=== PATIENT | male | born 1945 | race American Indian/Alaskan Native ===

== ENCOUNTER 2021-02-21 13:15 | Inpatient (IN) | payer MEDICARE ==
[2021-02-21] MEDS ORDERED: ALBUTEROL 2.5 MG/3 ML NEBU IH PRN (15:03)
[2021-02-21] MEDS ORDERED: POLYETHYLENE GLYCOL 3350 17 GM POWDER PO PRN (15:03)
[2021-02-21] MEDS ORDERED: ONDANSETRON 4 MG ODT TAB PO PRN (15:03)
[2021-02-21] MEDS ORDERED: hydrALAZINE 20 MG/1 ML INJ IV PRN (15:03)
[2021-02-21] MEDS ORDERED: QUEtiapine 25 MG TAB PO PRN (15:08)
[2021-02-21] MEDS: levETIRAcetam 500 MG/5 ML ORAL LIQD PO SCH (21:55)
[2021-02-21] MEDS: carvediloL 12.5 MG TAB PO SCH (21:57)
[2021-02-22 05:38] LABS: Basophils % (Auto) 0.2 % (0.0-1.8); Eosinophils % (Auto) 0.1 % (0.0-4.3); Lymphocytes # (Auto) 1.2 K/mm3 (1.2-5.4); Lymphocytes % (Auto) 10.8 % (13.4-35.0); Mean Corpuscular HGB Conc 37 % (32-34); Mean Corpuscular Volume 83 fl (84-94); Monocytes % (Auto) 9.2 % (0.0-7.3); Platelet Count 157 K/mm3 (140-440); Red Cell Distribution Width 14.4 % (13.2-15.2)
[2021-02-22 05:45] LABS: Hematocrit 35.5 % (35.5-45.6); Hemoglobin 13.2 gm/dl (11.8-15.2)
[2021-02-22 06:28] LABS: Alanine Aminotransferase 14 units/L (7-56); Albumin 3.7 g/dL (3.9-5); Blood Urea Nitrogen 12 mg/dL (9-20); Calcium 9.3 mg/dL (8.4-10.2); Hemolysis Index 8
[2021-02-22 06:36] LABS: BUN/Creatinine Ratio 24
[2021-02-22] MEDS: levETIRAcetam 500 MG/5 ML ORAL LIQD PO SCH ×2 (08:04→22:53)
[2021-02-22] MEDS: POTASSIUM CHLORIDE ER 20 MEQ TAB PO SCH (08:05)
[2021-02-22] MEDS: ENOXAPARIN 40 MG/0.4 ML INJ SUB-Q SCH (08:05)
[2021-02-22] MEDS: carvediloL 12.5 MG TAB PO SCH ×2 (08:05→22:54)
[2021-02-22] MEDS: amLODIPine 10 MG TAB PO SCH (08:05)
--- NOTE | 2021-02-22 08:14 | History and Physical Report ---
History of Present Illness Date: 02/22/21 Date of admission: 02/21/21 19:22 Chief Complaint: CVA History of present illness: 76-year-old male who was in [place] when he was noted to have altered mental status and headache. He was taken to nearest ED and had no focal neurologic deficits on presentation. 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 Patient was possibly not compliant with medications per outside hospital reports. Patient later was noted to have epileptiform discharges on EEG and was started on Keppra. Blood pressure was elevated and remains in the 160s to 170s. Home medications were restarted as well as the addition of carvedilol. Patient also experienced agitation and was started on a very low-dose of Seroquel in order to reduce his risk of self injury. Patient has poor safety awareness, somewhat decreased command following at times, and visual impairment on the left. He has been cleared for Lovenox for DVT prophylaxis however has not been restarted on aspirin which he previously took due to the TIA as of yet. Patient also remains on potassium replacement. After the patient was medically stabilized they were transferred for further rehabilitation. All available medical records have been reviewed. Plan of care was discussed with patient and family (, son, daughter are here with the patient this morning). Patient does have some perseveration noted, left homonymous hemianopsia, and a slight left facial droop. 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 Left upper and lower extremities are slightly weaker but still functional. On examination with OT this morning patient had significant uncleared food still in his mouth from breakfast. Approximately 35 minutes was invested in reviewing a large packet of medical records from [facility] yesterday prior to the patient's admission. Summary of said review is as stated above. 75 minutes was invested in patient care this morning including time for examination with the patient, monitoring the patient during PT, OT and ESTHETICIAN FACIALIST evalu ations, and discussing the patient's current condition and prognosis as well as discharge planning with the patient and the family. Past History Past Medical History: hypertension, other (Prior TIA) Past Surgical History: hernia repair Social history: , lives with family, full code. denies: smoking, alcohol abuse (Occasional use) Family history: cancer, hypertension Medications and Allergies Allergies Allergy/AdvReac Type Severity Reaction Status Date / Time No Known Allergies Allergy Unverified 02/21/21 13:30 Active Meds: Active Medications Acetaminophen (Acetaminophen 325 Mg Tab) 650 mg PO Q6H PRN PRN Reason: Non Cardiac Pain or Temp>100.5 Albuterol (Albuterol 2.5 Mg/3 Ml Nebu) 2.5 mg IH Q4HRT PRN PRN Reason: Shortness Of Breath Amlodipine Besylate (Amlodipine 10 Mg Tab) 10 mg PO QDAY [facility] Last Admin: 02/22/21 08:05 Dose: 10 mg Documented by: Atorvastatin Calcium (Atorvastatin 40 Mg Tab) 40 mg PO QHS [facility] Last Admin: 02/21/21 21:57 Dose: 40 mg Documented by: Bisacodyl (Bisacodyl 10 Mg Rect Supp) 10 mg HI QDAY PRN PRN Reason: Constipation Carvedilol (Carvedilol 12.5 Mg Tab) 12.5 mg PO BID [facility] Last Admin: 02/22/21 08:05 Dose: 12.5 mg Documented by: Doxazosin Mesylate (Doxazosin 4 Mg Tab) 4 mg PO QDAY [facility] Enoxaparin Sodium (Enoxaparin 40 Mg/0.4 Ml Inj) 40 mg SUB-Q QDAY [facility] Last Admin: 02/22/21 08:05 Dose: 40 mg Documented by: Hydralazine HCl (Hydralazine 20 Mg/1 Ml Inj) 10 mg IV Q4HR PRN PRN Reason: Hypertension Levetiracetam (Levetiracetam 500 Mg/5 Ml Oral Liqd) 750 mg PO BID [facility] Last Admin: 02/22/21 08:04 Dose: 750 mg Documented by: Ondansetron HCl (Ondansetron 4 Mg Odt Tab) 4 mg PO Q8H PRN PRN Reason: Nausea And Vomiting Polyethylene Glycol (Polyethylene Glycol 3350 17 Gm Powder) 17 gm PO QDAY PRN PRN Reason: Constipation Potassium Chloride (Potassium Chloride Er 20 Meq Tab) 20 meq PO QDAY [facility] Last Admin: 02/22/21 08:05 Dose: 20 meq Documented by: Quetiapine Fumarate (Quetiapine 25 Mg Tab) 12.5 mg PO QHS PRN PRN Reason: Agitation Review of Systems All systems: negative (ROS negative for 10 systems except as noted below with pertinent positives and negatives.) Constitutional: fatigue, daytime sleepiness Eyes: left: other (Left homonymous hemianopsia) Ears, nose, mouth and throat: voice changes, no decreased hearing Cardiovascular: no chest pain, no palpitations, no edema Respiratory: no cough, no shortness of breath Gastrointestinal: no abdominal pain, no nausea, no vomiting, no diarrhea, no constipation Musculoskeletal: gait dysfunction, no neck pain, no low back pain Integumentary: no rash, no pruritis, no sores Neurological: weakness, seizures, lack of coordination, change in mentation, balance difficulties, loss of vision Psychiatric: memory loss, confusion Exam - Exam Narrative exam: MUSCULOSKELETAL SPECIALTY EXAM CONSTITUTIONAL: Well developed, well nourished, appropriately groomed. RIGHT hand dominant. LYMPHATIC: No appreciable abnormalities palpable in neck RESPIRATORY: Clear to auscultation bilaterally, no increased work of breathing CARDIOVASCULAR: Regular Rate/ Rhythm, no swelling, edema or tenderness in BUE or BLE. Pulses palpable in all extremities. All extremities warm. GI: + bowel sounds, soft, NTTP, nondistended. INTEGUMENTARY: Normal, no lesion, rash, masses or bruising noted in extremities. MUSCULOSKELETAL: BUE and BLE normal without defect, crepitus, subluxation, effusion, arthritic changes or TTP. R 5 /5 L 4 /5 ROM normal Tone normal NEURO: CN II : Left homonymous hemianopsia CN II, III : PERRL CN III, IV, : EOMI CN V : Facial sensation intact CN VII : Slight left facial droop CN VIII : Hearing intact to finger rustle CN IX, X : Palate/uvula elevate midline, phonation softened but not hoarse CN XI : Intact shoulder shrug and decreased head rotation CN XII : Tongue protrudes midline Sensation intact in all extremities with extinction on the left. Reflexes 2+ bilaterally at biceps, brachioradialis and patella. No clonus at ankles. Coordination slightly impaired in BUE. No tremor noted in 4 extremities. Naming and repetition intact. Follows 1 step commands partially. Aphasia not appreciated Dysarthria possibly slightly present but difficult to tell due to patient's fatigue and softened voice Dysphagia patient with food in mouth, possibly oral motor issues Neglect not appreciated, inattention seems present Poor safety awareness POSTURE and GAIT: Sitting posture good. Balance and gait observed with therapy, gait fairly reasonable with crouched knees and occasional loss of balance utilizing rolling walker. PSYCH: Drowsy, oriented x 2, affect appears blunted. Insight appears impaired - Constitutional Vitals: Vital Signs - 12hr 02/21/21 02/21/21 02/22/21 21:57 23:00 04:00 Temperature 98.1 F 98.2 F Pulse Rate 85 83 59 L Respiratory 18 18 Rate Blood Pressure 175/88 Blood Pressure 149/94 172/91 [Right] O2 Sat by Pulse 96 98 Oximetry 02/22/21 07:23 Temperature 99.3 F Pulse Rate 69 Respiratory 18 Rate Blood Pressure Blood Pressure 163/92 [Right] O2 Sat by Pulse 96 Oximetry - Labs CBC & Chem 7: 02/22/21 04:50 02/22/21 04:50 Labs: Laboratory Results - last 72 hr 02/22/21 02/22/21 04:50 04:50 WBC 11.0 RBC 4.30 Hgb 13.2 Hct 35.5 MCV 83 L MCH 31 MCHC 37 H RDW 14.4 Plt Count 157 Lymph % (Auto) 10.8 L Pike % (Auto) 9.2 H Eos % (Auto) 0.1 Baso % (Auto) 0.2 Lymph # (Auto) 1.2 Pike # (Auto) 1.0 H Eos # (Auto) 0.0 Baso # (Auto) 0.0 Seg Neutrophils % 79.7 H Seg Neutrophils # 8.8 H Sodium 131 L Potassium 3.9 Chloride 92.9 L Carbon Dioxide 23 Anion Gap 19 BUN 12 Creatinine 0.5 L Estimated GFR > 60 BUN/Creatinine Ratio 24 Glucose 134 H Calcium 9.3 Total Bilirubin 1.20 AST 18 ALT 14 Alkaline Phosphatase 50 Total Protein 7.1 Albumin 3.7 L Albumin/Globulin Ratio 1.1 Assessment and Plan Assessment and plan: Patient was assessed and evaluated for Acute Inpatient Rehab Unit. Due to the patients above-mentioned medical complexity, along with decreased functional mobility and self care, this patient continues to require and be appropriate for a comprehensive, multidisciplinary [id number] rehabilitation program. These needs cannot be met in an outpatient or other less intensive setting. The patient would continue to benefit from skilled t herapy intervention for at least 3 hours per day, five days a week, with techniques specific to the needs of the patient to improve function, activities of daily living, and reintegration into the community. The patient continues to require: -- OT to improve ROM, self-care, and learn use of adaptive equipment -- PT to improve strength and balance, functional transfers, and ambulation with energy conservation techniques to improve functional mobility -- ESTHETICIAN FACIALIST to address cognitive deficits and swallowing ability -- 24 hour RN to ensure and prevent skin breakdown, promote progressive independence while ensuring safety, ensure education regarding medications, and incorporation of the rehabilitation at the bedside -- 24 hour Desilverizer to coordinate this interdisciplinary program, and to manage/prevent complications as a result of the patients medical comorbidities. -Plan of care by day 4 -Weekly team conferences With such a program, there is a reasonable certainty that the goals individua lized for this patient can be achieved within the specified length of stay. Intracerebral hemorrhage: Continue Secondary Stroke Prevention (Antithrombotic on hold, Statin (Goal LDL-C <70), BP control (Goal <140/90), GLU control (Goal A1c <7), and lifestyle modification). Monitor for recurrent stroke or post- stroke recrudescence. Continue neuromotor therapy as above. Family training when available. Monitor for post stroke depression, cognitive deficits, seizure, dysphagia, aphasia, shoulder hand syndrome, sensory deficits, spasticity, bowel/bladder deficits, sleep disturbance, vision deficits and DVT. Prognosis for recovery and Secondary Stroke Prevention discussed. Follow up with Neurology. No driving until cleared by Neurologist. Seizure: Maintain seizure precautions, continue Keppra for prophylaxis. Patient will need follow-up with neurologist for consideration of removal of Keppra in several months. Hypertension: Continue medication. Monitor blood pressure. Adjust medications as needed for normotension. Hold for hypotension. Goal SBP <140. May need to discontinue carvedilol and start another agent due to poorly controlled hypertension with the patient's heart rate trending towards the lower side. Will monitor over the next day or 2 and make adjustments accordingly. Left homonymous hemianopsia: Continue therapy to improve the patient's ability to recognize and scan on his left side. Patient seems to have poor awareness of visual deficits and has not been able to appropriately scan for visual input yet. Poor safety awareness: Continue to monitor the patient closely for safety. Bed alarm and wheelchair alarm/seatbelt in use. Family members have been staying overnight since he was admitted yesterday. Will need to continue working with the patient to improve his safety awareness. Low-dose Seroquel place for intermittent agitation which the patient was having at [facility] prior to discharge. Cognitive dysfunction: Continue working with ESTHETICIAN FACIALIST to improve patient's cognition and memory . Will need to monitor sleep-wake cycles and may need to start trazodone if the patient is not sleeping well at night. Have discussed with the patient's family that decreased stimulation may be a good thing during the day and not to over stimulate him. ADL dysfunction: OT will work on improving ability to perform ADLs (including assistive devices) to increase independence and decrease caregiver burden and improve functional transfers and mobility training. Difficulty walking: PT will work on gait training and proper use of assistive devices and advance as appropriate to use of stairs and outside ambulation on uneven surfaces. Unsteadiness on feet: PT will work on improving static and dynamic sitting and standing balance as well as proper use of assistive devices to decrease risk of falls. Abnormality of gait: PT will work to improve safety and efficiency of gait through neuromotor training and gait training along with instruction on proper use of assistive devices. Muscle weakness: PT & OT will work on strengthening exercises to improve functional strength including mixture of closed and open kinetic chain exercises. Debility: PT & OT will work on improving overall functional status to improve participation with ADLs, mobility and social involvement. Fatigue: PT & OT will work on improving endurance through aerobic exercises and therapeutic activity while monitoring patients tolerance for activity and vital signs as needed. DVT ppx: Lovenox Pain: Continue physical modalities in therapy and pain medications as needed to achieve functional pain control. Sleep: Monitor and address as needed. Bowel: Monitor and address as needed. Appetite: Monitor and address as needed. Discharge planning: Pending therapy progress and care plan meeting. Will continue discussion with therapy team, SW, patient and family. Restrictions/ Precautions: Falls, seizure, cognition WB status: FWB Functional Hx: ADLs: Independent Cognition: Independent Mobility: No AD Barriers to Discharge: Decreased mobility and ability to perform self care, b alance deficits, weakness Estimated Length of Stay: 1418 days Discharge Destination: Home with family POST ADMISSION PHYSICIAN EVALUATION I have examined the patient and find that functional status, medical condition and appropriateness for IRF admission are essentially unchanged from those descr ibed in the preadmission screening. Will monitor for worsening CVA, hemorrhagic extension, shoulder-hand syndrome, dysphagia, seizure, skin breakdown, DVT/PE, bowel and bladder complications and complications due to hypertension and electrolyte abnormalities. Will attempt to avoid occurrence of these issues or treat them if they present themselves.
[2021-02-22] MEDS: DOXAZOSIN 4 MG TAB PO SCH (13:17)
[2021-02-23] MEDS: carvediloL 12.5 MG TAB PO SCH (11:23)
[2021-02-23] MEDS: POTASSIUM CHLORIDE ER 20 MEQ TAB PO SCH (11:23)
[2021-02-23] MEDS: amLODIPine 10 MG TAB PO SCH (11:23)
[2021-02-23] MEDS: DOXAZOSIN 4 MG TAB PO SCH (11:24)
[2021-02-23] MEDS: ENOXAPARIN 40 MG/0.4 ML INJ SUB-Q SCH (11:30)
--- NOTE | 2021-02-23 12:37 | Progress Note ---
Subjective Date of service: 02/23/21 Principal diagnosis: CVA Interval history: 76-year-old male who was in [place] when he was noted to have altered mental status and headache. He was taken to nearest ED and had no focal neurologic deficits on presentation. 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 Patient was possibly not compliant with medications per outside hospital reports. Patient later was noted to have epileptiform discharges on EEG and was started on Keppra. Blood pressure was elevated and remains in the 160s to 170s. Home medications were restarted as well as the addition of carvedilol. Patient also experienced agitation and was started on a very low-dose of Seroquel in order to reduce his risk of self injury. Patient has poor safety awareness, somewhat decreased command following at times, and visual impairment on the left. He has been cleared for Lovenox for DVT prophylaxis however has not been restarted on aspirin which he previously took due to the TIA as of yet. Patient also remains on potassium replacement. After the patient was medically stabilized they were transferred for further rehabilitation. All available medical records have been reviewed. Plan of care was discussed with patient and family (, son, daughter are here with the patient this morning). Interval History: Patient is participating in therapy and making slow progress requiring mod to max assist with OT, much cueing with [employer], and mod assist with PT. Taking rest breaks as needed. +BM. Denies pain, palpitations, dyspnea, cough, N/V, or joint pain. Intracerebral hemorrhage: Continue secondary stroke prevention. Monitor for any signs of worsening hemorrhage intracranially. Monitor for any signs of neurologic decline, shoulder-hand syndrome, aspiration, bowel bladder deficits, sleep dysfunction. Patient is having difficulty with concentration and cognition, will need to continue to reinforce concept with him from all disc iplines including PT, OT, speech and nursing. Seizure: Continue seizure precautions. Continue Keppra and patient will need to follow-up with neurologist as an outpatient for consideration of discontinuation of Keppra. Hypertension: Blood pressure remains elevated, heart rate runs 60s to 70s. Will look to start lisinopril in addition to current medications and monitor blood pressure for improvement. DC carvedilol. Left homonymous hemianopsia: Continue therapy and monitor for improvement. P atient will need to learn to scan as much as possible to the weak side in order to avoid obstacles and to pay attention to his environment. Will obtain this during work with therapy sessions performing searches in his environment as well as up and down the hallway. Poor safety awareness: Continue to monitor the patient closely. Bed and chair alarm at use at all times. Have discussed with nursing to try to redirect patient as often as needed. Family has been spending time with the patient and this seems to calm him down as well. Cognitive dysfunction: Hopefully this will improve with time as the patient has an ICH. We will continue working with speech therapy to improve and have all di sciplines reinforce reorientation and monitor for clearing. All records, vitals, labs and medications were reviewed. No other issues per patient, nursing or therapy. Patient remains a high risk and/or due to diagnosis of intracerebral hemorrhage with possibility of repeat hemorrhage and worsening of neurologic function. Patient has been cleared for Lovenox by hospital prior to transfer to us however her aspirin has not been restarted. Patient also has risk of serious bodily harm and/or due to cognitive dysfunction and poor safety awareness leading him to possibility of falls even with use of bed and chair alarms and frequent monitoring by staff. Patient's condition discussed with the daughter when she came onto the floor. Objective - Exam Narrative Exam: MUSCULOSKELETAL SPECIALTY EXAM CONSTITUTIONAL: Well developed, well nourished, appropriately groomed. RIGHT hand dominant. RESPIRATORY: Clear to auscultation bilaterally, no increased work of breathing CARDIOVASCULAR: Regular Rate/ Rhythm, no swelling, edema or tenderness in BUE or BLE. All extremities warm. GI: + bowel sounds, soft, NTTP, nondistended. INTEGUMENTARY: Normal, no lesion, rash, masses or bruising noted in extremities. MUSCULOSKELETAL: BUE and BLE normal without defect, crepitus, subluxation, effusion, arthritic c hanges or TTP. R 5 /5 L 4 /5 ROM normal Tone normal NEURO: CN II : Left homonymous hemianopsia CN VII : Slight left facial droop CN IX, X : Palate/uvula elevate midline, phonation softened but not hoarse CN XI : Intact shoulder shrug and decreased head rotation Sensation intact in all extremities with extinction on the left. No tremor noted in 4 extremities. Follows 1 step commands partially. Aphasia not appreciated Dysarthria possibly slightly present but difficult to tell due to patient's fatigue and softened voice Dysphagia patient with food in mouth, possibly oral motor Neglect not appreciated, inattention seems present Poor safety awareness with cognitive dysfunction POSTURE and GAIT: Sitting posture good. Balance and gait observed with therapy, gait fairly reasonable with crouched knees and occasional loss of balance utilizing rolling walker. PSYCH: More awake today, disoriented, affect appears blunted. Insight impaired - Constitutional Vitals: Vital Signs - 12hr 02/23/21 02/23/21 04:29 07:48 Temperature 98.5 F 97.3 F L Pulse Rate 69 73 Respiratory 18 16 Rate Blood Pressure 150/77 163/87 O2 Sat by Pulse 100 94 Oximetry - Allied health notes Allied health notes reviewed: nursing, PT, ST, OT FIMS assessment as documented by PT/OT/ST: Grooming Patient cleans teeth/dentures: Yes Patient bernstein/brushes hair: Yes Patient washes, rinses and Yes dries face: Patient washes, rinses and Yes dries hands: Patient shaves: No Patient performs (no make-up/ 4/4 (100%) shaving): Grooming FIM Score 3. Moderate Assistance (Patient = 50% or more) Toileting Toileting FIM Score 2. Maximal Assistance (Patient = 25% or more) Social interaction/Memory/Problem solving Social Interaction FIM Score 5. Supervision (Needs supv. <10%. Needs encouragement to participate.) Memory FIM Score 3. Moderate Assistance (Recognizes and remembers 50-74%.) Problem Solving FIM Score 2. Maximal Assistance (Solves problems 25-49% or needs restraint.) Transfers Mode of Locomotion: Wheelchair Bed/Chair/Wheelchair Transfers 4. Minimal Assistance (Patient = 75% or more. FIM Score Needs touching.) Toilet Transfers FIM Score 4. Minimal Assistance (Patient = 75% or more. Needs touching.) Patient transferred to: Shower Shower Transfers FIM Score 4. Minimal Assistance (Patient = 75% or more. Needs touching.) Locomotion- walk/wheelchair Ambulation Distance 340 Eating Eating FIM Score 4. Minimal Assistance (Patient = 75% or more) Dressing-Upper body Patient retrieves clothing No items: Patient applies/removes UE No: N/A prosthesis or orthosis: Upper Body Dressing FIM Score 2. Maximal Assistance (Patient = 25% or more) Dressing-lower body Patient retrieves clothing No items: Patient applies/removes LE No: N/A prosthesis or orthosis: Lower Body Dressing FIM Score 2. Maximal Assistance (Patient = 25% or more) - Labs CBC & Chem 7: 02/22/21 04:50 02/22/21 04:50 Labs: Laboratory Results - last 72 hr 02/22/21 02/22/21 04:50 04:50 WBC 11.0 RBC 4.30 Hgb 13.2 Hct 35.5 MCV 83 L MCH 31 MCHC 37 H RDW 14.4 Plt Count 157 Lymph % (Auto) 10.8 L Fountain % (Auto) 9.2 H Eos % (Auto) 0.1 Baso % (Auto) 0.2 Lymph # (Auto) 1.2 Fountain # (Auto) 1.0 H Eos # (Auto) 0.0 Baso # (Auto) 0.0 Seg Neutrophils % 79.7 H Seg Neutrophils # 8.8 H Sodium 131 L Potassium 3.9 Chloride 92.9 L Carbon Dioxide 23 Anion Gap 19 BUN 12 Creatinine 0.5 L Estimated GFR > 60 BUN/Creatinine Ratio 24 Glucose 134 H Calcium 9.3 Total Bilirubin 1.20 AST 18 ALT 14 Alkaline Phosphatase 50 Total Protein 7.1 Albumin 3.7 L Albumin/Globulin Ratio 1.1 Assessment and Plan Intracerebral hemorrhage: Continue Secondary Stroke Prevention (Antithrombotic on hold, Statin (Goal LDL-C <70), BP control (Goal <140/90), GLU control (Goal A1c <7), and lifestyle modification). Monitor for recurrent stroke or post- stroke recrudescence. Continue neuromotor therapy as above. Family training when available. Monitor for post stroke depression, cognitive deficits, seizure, dysphagia, aphasia, shoulder hand syndrome, sensory deficits, spasticity, bowel/bladder deficits, sleep disturbance, vision deficits and DVT. Prognosis for recovery and Secondary Stroke Prevention discussed. Follow up with Neurology. No driving until cleared by Neurologist. Seizure: Maintain seizure precautions, continue Keppra for prophylaxis. Patient will need follow-up with neurologist for consideration of removal of Keppra in several months. Hypertension: Continue medication. Monitor blood pressure. Adjust medications as needed for normotension. Hold for hypotension. Goal SBP <140. Carvedilol discontinued and starting lisinopril. Monitor and adjust medications as needed for better pressure control. Left homonymous hemianopsia: Continue therapy to improve the patient's ability to recognize and scan on his left side. Patient seems to have poor awareness of visual deficits and has not been able to appropriately scan for visual input yet. Poor safety awareness: Continue to monitor the patient closely for safety. Bed alarm and wheelchair alarm/seatbelt in use. Family members have been staying overnight since he was admitted yesterday. Will need to continue working with the patient to improve his safety awareness. Low-dose Seroquel place for intermittent agitation which the patient was having at [facility] prior to discharge. Cognitive dysfunction: Continue working with [employer] to improve patient's cognition and memory . Will need to monitor sleep-wake cycles and may need to start trazodone if the patient is not sleeping well at night. Have discussed with the patient's family that decreased stimulation may be a good thing during the day and not to over stimulate him. ADL dysfunction: OT will work on improving ability to perform ADLs (including assistive devices) to increase independence and decrease caregiver burden and improve functional transfers and mobility training. Difficulty walking: PT will work on gait training and proper use of assistive devices and advance as appropriate to use of stairs and outside ambulation on uneven surfaces. Unsteadiness on feet: PT will work on improving static and dynamic sitting and standing balance as well as proper use of assistive devices to decrease risk of falls. Abnormality of gait: PT will work to improve safety and efficiency of gait through neuromotor training and gait training along with instruction on proper use of assistive devices. Muscle weakness: PT & OT will work on strengthening exercises to improve functional strength including mixture of closed and open kinetic chain exercises. Debility: PT & OT will work on improving overall functional status to improve participation with ADLs, mobility and social involvement. Fatigue: PT & OT will work on improving endurance through aerobic exercises and therapeutic activity while monitoring patients tolerance for activity and vital signs as needed. DVT ppx: Lovenox Pain: Continue physical modalities in therapy and pain medications as needed to achieve functional pain control. Sleep: Monitor and address as needed. Bowel: Monitor and address as needed. Appetite: Monitor and address as needed. Discharge planning: Pending therapy progress and care plan meeting. Will continue discussion with therapy team, SW, patient and family. Restrictions/ Precautions: Falls, seizure, cognition WB status: FWB Functional Hx: ADLs: Independent Cognition: Independent Mobility: No AD Barriers to Discharge: Decreased mobility and ability to perform self care, balance deficits, weakness Estimated Length of Stay: 1418 days Discharge Destination: Home with family
[2021-02-23] MEDS: levETIRAcetam 500 MG/5 ML ORAL LIQD PO SCH ×2 (13:23→21:18)
[2021-02-23] MEDS: LISINOPRIL 10 MG TAB PO SCH (18:52)
[2021-02-24 07:56] LABS: Blood Urea Nitrogen 16 mg/dL (9-20); Calcium 9.4 mg/dL (8.4-10.2); Hemolysis Index 2
--- NOTE | 2021-02-24 07:58 | Progress Note ---
Subjective Date of service: 02/24/21 Principal diagnosis: CVA Interval history: 76-year-old male who was in [place] when he was noted to have altered mental status and headache. He was taken to nearest ED and had no focal neurologic deficits on presentation. 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 Patient was possibly not compliant with medications per outside hospital reports. Patient later was noted to have epileptiform discharges on EEG and was started on Keppra. Blood pressure was elevated and remains in the 160s to 170s. Home medications were restarted as well as the addition of carvedilol. Patient also experienced agitation and was started on a very low-dose of Seroquel in order to reduce his risk of self injury. Patient has poor safety awareness, somewhat decreased command following at times, and visual impairment on the left. He has been cleared for Lovenox for DVT prophylaxis however has not been restarted on aspirin which he previously took due to the TIA as of yet. Patient also remains on potassium replacement. After the patient was medically stabilized they were transferred for further rehabilitation. All available medical records have been reviewed. Plan of care was discussed with patient and family (, son, daughter are here with the patient this morning). Interval History: Patient is participating in therapy and making slow progress requiring mod to max assist with OT, much cueing with [employer]I PROGRAMMER, and mod assist with PT. Taking rest breaks as needed. -BM. Denies pain, palpitations, dyspnea, cough, N/V, or joint pain. Intracerebral hemorrhage: Continue secondary stroke prevention. Monitor for any signs of worsening hemorrhage intracranially. Monitor for any signs of neurologic decline, shoulder-hand syndrome, aspiration, bowel bladder deficits, sleep dysfunction. Patient is having difficulty with concentration and cognition, will need to continue to reinforce concept with him from all disc iplines including PT, OT, speech and nursing. Seizure: Continue seizure precautions. Continue Keppra and patient will need to follow-up with neurologist as an outpatient for consideration of discontinuation of Keppra. No seizures so far this admission Hypertension: Blood pressure slightly improved on current medications. Continue to monitor blood pressure over the next several days and adjust medications as needed. Left homonymous hemianopsia: Continue therapy and monitor for improvement. Patient will need to learn to scan as much as possible to the weak side in order to avoid obstacles and to pay attention to his environment. Will obtain this during work with therapy sessions performing searches in his environment as well as up and down the hallway. Poor safety awareness: Continue to monitor the patient closely. Bed and chair alarm at use at all times. Have discussed with nursing to try to redirect patient as often as needed. Family has been spending time with the patient and this seems to calm him down as well. Apparently patient tried to get up most of the night despite alarms being activated and nursing staff are requesting a sitter for patient safety. Cognitive dysfunction: Hopefully this will improve with time as the patient has an ICH. We will continue working with speech therapy to improve and have all disciplines reinforce reorientation and monitor for clearing. All records, vitals, labs and medications were reviewed. No other issues per patient, nursing or therapy. Patient remains a high risk and/or due to diagnosis of intracerebral hemorrhage with possibility of repeat hemorrhage and worsening of neurologic function. Patient has been cleared for Lovenox by hospital prior to transfer to us however aspirin has not been restarted. Aysha ent also has risk of serious bodily harm and/or due to cognitive dysfunction and poor safety awareness leading him to possibility of falls even with use of bed and chair alarms and frequent monitoring by staff. Objective - Exam Narrative Exam: MUSCULOSKELETAL SPECIALTY EXAM CONSTITUTIONAL: Well developed, well nourished, appropriately groomed. RIGHT hand dominant. RESPIRATORY: Clear to auscultation bilaterally, no increased work of breathing CARDIOVASCULAR: Regular Rate/ Rhythm, no swelling, edema or tenderness in BUE or BLE. All extremities warm. GI: + bowel sounds, soft, NTTP, nondistended. INTEGUMENTARY: Normal, no lesion, rash, masses or bruising noted in extremities. MUSCULOSKELETAL: BUE and BLE normal without defect, crepitus, subluxation, effusion, arthritic changes or TTP. R 5 /5 L 4 /5 ROM normal Tone normal NEURO: CN II : Left homonymous hemianopsia CN VII : Slight left facial droop CN IX, X : Palate/uvula elevate midline, phonation softened but not hoarse CN XI : Intact shoulder shrug and decreased head rotation Sensation intact in all extremities with extinction on the left. No tremor noted in 4 extremities. Follows 1 step commands partially. Aphasia not appreciated Dysarthria possibly slightly present but difficult to tell due to patient's fatigue and softened voice Dysphagia patient with food in mouth, possibly oral motor Neglect not appreciated, inattention seems present Poor safety awareness with cognitive dysfunction POSTURE and GAIT: Sitting posture good. Balance and gait observed with therapy, gait fairly reasonable with crouched knees and occasional loss of balance utilizing rolling walker. PSYCH: Alert, disoriented, affect appears blunted. Insight impaired - Constitutional Vitals: Vital Signs - 12hr 02/23/21 02/24/21 02/24/21 19:59 05:00 05:55 Temperature 98.2 F 97.3 F L Pulse Rate 61 59 L 77 Respiratory 18 18 17 Rate Blood Pressure Blood Pressure 134/83 172/81 116/78 [Right] O2 Sat by Pulse 99 96 97 Oximetry 02/24/21 07:53 Temperature 98.0 F Pulse Rate 90 Respiratory 16 Rate Blood Pressure 117/69 Blood Pressure [Right] O2 Sat by Pulse 96 Oximetry - Allied health notes Allied health notes reviewed: nursing, PT, ST, OT FIMS assessment as documented by PT/OT/ST: Grooming Patient cleans teeth/dentures: No Patient bernstein/brushes hair: Yes Patient washes, rinses and Yes dries face: Patient washes, rinses and Yes dries hands: Patient shaves: No Patient performs (no make-up/ 3/4 (75%) shaving): Grooming FIM Score 3. Moderate Assistance (Patient = 50% or more) Toileting Toileting FIM Score 1. Total Assistance (Patient less than 25%. 2 or more persons.) Social interaction/Memory/Problem solving Social Interaction FIM Score 2. Maximal Assistance (Appropriate 25-49% or needs restraint.) Memory FIM Score 3. Moderate Assistance (Recognizes and remembers 50-74%.) Problem Solving FIM Score 2. Maximal Assistance (Solves problems 25-49% or needs restraint.) Transfers Mode of Locomotion: Wheelchair Bed/Chair/Wheelchair Transfers 2. Maximal Assistance (Patient = 25% or more) FIM Score Toilet Transfers FIM Score 4. Minimal Assistance (Patient = 75% or more. Needs touching.) Patient transferred to: Shower Shower Transfers FIM Score 4. Minimal Assistance (Patient = 75% or more. Needs touching.) Locomotion- walk/wheelchair Ambulation Distance 340 Eating Eating FIM Score 3. Moderate Assistance (Patient = 50% or more) Dressing-Upper body Patient retrieves clothing No items: Patient applies/removes UE No: N/A prosthesis or orthosis: Upper Body Dressing FIM Score 2. Maximal Assistance (Patient = 25% or more) Dressing-lower body Patient retrieves clothing No items: Patient applies/removes LE No: N/A prosthesis or orthosis: Lower Body Dressing FIM Score 2. Maximal Assistance (Patient = 25% or more) - Labs CBC & Chem 7: 02/22/21 04:50 02/24/21 06:49 Labs: Laboratory Results - last 72 hr 02/22/21 02/22/21 02/24/21 04:50 04:50 06:49 WBC 11.0 RBC 4.30 Hgb 13.2 Hct 35.5 MCV 83 L MCH 31 MCHC 37 H RDW 14.4 Plt Count 157 Lymph % (Auto) 10.8 L Harvey % (Auto) 9.2 H Eos % (Auto) 0.1 Baso % (Auto) 0.2 Lymph # (Auto) 1.2 Harvey # (Auto) 1.0 H Eos # (Auto) 0.0 Baso # (Auto) 0.0 Seg Neutrophils % 79.7 H Seg Neutrophils # 8.8 H Sodium 131 L 131 L Potassium 3.9 3.7 Chloride 92.9 L 93.1 L Carbon Dioxide 23 28 Anion Gap 19 14 BUN 12 16 Creatinine 0.5 L Estimated GFR > 60 BUN/Creatinine Ratio 24 Glucose 134 H 175 H Calcium 9.3 9.4 Magnesium 2.40 H Total Bilirubin 1.20 AST 18 ALT 14 Alkaline Phosphatase 50 Total Protein 7.1 Albumin 3.7 L Albumin/Globulin Ratio 1.1 Assessment and Plan Intracerebral hemorrhage: Continue Secondary Stroke Prevention (Antithrombotic on hold, Statin (Goal LDL-C <70), BP control (Goal <140/90), GLU control (Goal A1c <7), and lifestyle modification). Monitor for recurrent stroke or post- stroke recrudescence. Continue neuromotor therapy as above. Family training when available. Monitor for post stroke depression, cognitive deficits, seizure, dysphagia, aphasia, shoulder hand syndrome, sensory deficits, spasticity, bowel/bladder deficits, sleep disturbance, vision deficits and DVT. Prognosis for recovery and Secondary Stroke Prevention discussed. Follow up with Neurology. No driving until cleared by Neurologist. Seizure: Maintain seizure precautions, continue Keppra for prophylaxis. Patient will need follow-up with neurologist for consideration of removal of Keppra in several months. Hypertension: Continue medication. Monitor blood pressure. Adjust medications as needed for normotension. Hold for hypotension. Goal SBP <140. Monitor and adjust medications as needed for better pressure control. Left homonymous hemianopsia: Continue therapy to improve the patient's ability to recognize and scan on his left side. Patient seems to have poor awareness of visual deficits and has not been able to appropriately scan for visual input yet. Poor safety awareness: Continue to monitor the patient closely for safety. Bed alarm and wheelchair alarm/seatbelt in use. Nursing requesting sitter as patient continues to get up despite alarms. Will need to continue working with the patient to improve his safety awareness. Low-dose Seroquel place for intermittent agitation which the patient was having at [facility] prior to discharge. Cognitive dysfunction: Continue working with EDI PROGRAMMER to improve patient's cognition and memory . Will need to monitor sleep-wake cycles and may need to start tr azodone if the patient is not sleeping well at night. Have discussed with the patient's family that decreased stimulation may be a good thing during the day and not to over stimulate him. ADL dysfunction: OT will work on improving ability to perform ADLs (including assistive devices) to increase independence and decrease caregiver burden and improve functional transfers and mobility training. Difficulty walking: PT will work on gait training and proper use of assistive devices and advance as appropriate to use of stairs and outside ambulation on uneven surfaces. Unsteadiness on feet: PT will work on improving static and dynamic sitting and standing balance as well as proper use of assistive devices to decrease risk of falls. Abnormality of gait: PT will work to improve safety and efficiency of gait through neuromotor training and gait training along with instruction on proper use of assistive devices. Muscle weakness: PT & OT will work on strengthening exercises to improve functi onal strength including mixture of closed and open kinetic chain exercises. Debility: PT & OT will work on improving overall functional status to improve participation with ADLs, mobility and social involvement. Fatigue: PT & OT will work on improving endurance through aerobic exercises and therapeutic activity while monitoring patients tolerance for activity and vital signs as needed. DVT ppx: Lovenox Pain: Continue physical modalities in therapy and pain medications as needed to achieve functional pain control. Sleep: Monitor and address as needed. Bowel: Monitor and address as needed. Appetite: Monitor and address as needed. Discharge planning: Pending therapy progress and care plan meeting. Will continue discussion with therapy team, SW, patient and family. Restrictions/ Precautions: Falls, seizure, cognition WB status: FWB Functional Hx: ADLs: Independent Cognition: Independent Mobility: No AD Barriers to Discharge: Decreased mobility and ability to perform self care, balance deficits, weakness Estimated Length of Stay: 1418 days Discharge Destination: Home with family
[2021-02-24 08:20] LABS: BUN/Creatinine Ratio 23
[2021-02-24] MEDS: levETIRAcetam 500 MG/5 ML ORAL LIQD PO SCH ×2 (09:46→21:48)
[2021-02-24] MEDS: POTASSIUM CHLORIDE ER 20 MEQ TAB PO SCH (09:47)
[2021-02-24] MEDS: ENOXAPARIN 40 MG/0.4 ML INJ SUB-Q SCH (09:47)
[2021-02-24] MEDS: amLODIPine 10 MG TAB PO SCH (09:47)
[2021-02-24] MEDS: LISINOPRIL 10 MG TAB PO SCH (09:47)
[2021-02-24] MEDS: DOXAZOSIN 4 MG TAB PO SCH (12:13)
--- NOTE | 2021-02-24 20:09 | IRU Plan of Care ---
Interdisciplinary Plan of Care - [facility] IRU INTERDISCIPLINARY PLAN: [facility] Inpatient Rehab Unit Plan of Care IRU Interdisciplinary Care Plan Start: 02/22/21 11:50 Freq: Status: Active Protocol: Document 02/24/21 19:00 TH (Rec: 02/24/21 19:14 TH [id number]) Interdisciplinary Problem List Interdisciplinary Problem List Interdisciplinary Problem List Impaired Eating/Swallowing, Query Text:Answers will Trigger Problems Impaired Bathing/Grooming, and Outcomes on Worklist. Impaired Dressing,Impaired Mobility,Impaired Transfers, Impaired Bladder/Bowel Management,Impaired Toileting, Impaired Comprehension, Impaired Expression,Impaired Problem Solving,Impaired Memory,Community Reintergration,Impaired Home Management,Impaired Safety IRU Interdisciplinary Care Plan Therapy Services Therapy Services Will Include: Physical Therapy,Occupational Query Text:Patient will be seen for a Therapy,Speech Therapy minimum of 3 hours of daily therapy 5 out of 7 days a week. Therapy intensity may be adjusted within a 7 consecutive day period to effectively serve the individual needs of the patient. Treatment Frequency/Intensity/Duration Treatment Frequency 5 days per week Treatment Intensity 3 hours per day Treatment Duration 10-14 days Problem Area: Eating/Swallowing Eating/Swallowing Outcomes Eating/Swallowing Interventions Problem Area: Bathing/Grooming Bathing/Grooming Outcomes Improve Iron w/ Grooming,Improve Iron w/ Bathing Bathing/Grooming Interventions ADL Training,Use of Assistive Devices,Therapeutic Exercise, Therapeutic Activity, Neuromuscular Re-Education, Balance Work,Activity Tolerance Work,Patient/ Caregiver Education Problem Area: Dressing Dressing Outcomes Improve Iron w/ UB Dressing,Improve Iron w/ LB Dressing Dressing Interventions ADL Training,Use of Assistive Devices,Neuromuscular Re- Education,Therapeutic Exercise ,Balance Work,Modalities, Patient/Caregiver Education Problem Area: Mobility Mobility Outcomes Improve Iron w/ Bed Mobility,Improve Iron w/ Ambulation,Improve Iron w/ Stairs/Curb, Improve Iron w/ Wheelchair Mobility Interventions Therapeutic Exercise, Neuromuscular Re-Ed.,Use of Assistive Devices,Patient/ Caregiver Education,Bed Mobility Work,Gait Training,W/ C Mobility Work Problem Area: Transfers Transfers Outcomes Improve Iron w/ Toilet Transfers Transfers Interventions Transfer Training,Therapeutic Exercise,Neuromuscular Re- Education,Visual/Perceptual Training,Activity Tolerance Work,Modalities,Use of Assistive Devices,Patient/ Caregiver Education Problem Area: Bowel/Bladder Managment Bowel/Bladder Outcomes Bowel/Bladder Interventions Problem Area: Toileting Toileting Outcomes Improve Iron w/ Toileting Toileting Interventions ADL Training,Balance Work,Use of Assistive Devices,Patient/ Caregiver Education Problem Area: Nutrition Nutrition Outcomes Nutrition Interventions Problem Area: Comprehension Comprehension Outcomes Comprehension Interventions Problem Area: Expression Expression Outcomes Expression Interventions Problem Area: Problem Solving Problem Solving Outcomes Problem Solving Interventions Problem Area: Memory Memory Outcomes Memory Interventions Problem Area: Pain Management Pain Management Outcomes Pain Management Interventions Problem Area: Knowledge Deficits Knowledge Deficits Outcomes Knowledge Deficits Interventions Problem Area: Skin/Tissue Integrity Skin/Tissue Integrity Outcomes Skin/Tissue Integrity Interventions Problem Area: Social Interaction Social Interaction Outcomes Social Interaction Interventions Problem Area: Adjustment to Disability Adjustment to Disability Outcomes Adjustment to Disability Interventions Problem Area: Discharge Concerns Discharge Concerns Outcomes Discharge w/ Necessary Equipment,Have Home Health/ Outpatient Services Discharge Concerns Interventions Discharge Planning,Equipment Assessment, Acquisition and Placement,Family/Caregiver Training Problem Area: Community Reintegration Community Reintegration Outcomes Community Reintegration Interventions Problem Area: Home Management Home Management Outcomes Improve Iron w/ Home Management Home Management Interventions Money Management Tasks,Meal Preparation,Clothing Care, Activity Tolerance Work, Leisure Skills Development, Shopping,Telephone Use,Patient /Caregiver Education Problem Area: Safety Safety Outcomes Provide Safe Environment, Perform Selfcare Safely, Demonstrate Good Safety w/ Transfers/Mobility Safety Interventions Identify Fall Risk,[place] Pt. to Environment,Reduce Environmental Hazards Problem Area: Medication Education Medication Education Outcomes Medication Education Interventions Problem Area: Diabetes Education Diabetes Education Outcomes Demonstrate Knowledge of Resources Availlable in Diabetic Ed. Folder Diabetes Education Interventions Give Pt. Diabetes Education Folder,Discuss Pathophysiology of Diabetes Problem Area: Oxygenation Oxygenation Outcomes Oxygenation Interventions Problem Area: Cardiovascular Cardiovascular Outcomes Maintain or Improve Cardiovascular Status Cardiovascular Interventions Assess Vital Signs at least Every 4 hours,Cardiac Monitoring, EKG and ABG as Ordered. Physician Only Medical Prognosis and Rehabilitation Good rehab potential good prognosis Potential (Completed by Physician) This plan of care has been developed based on the findings from the pre- admission assessment, post admission physician evaluation, information gathered from the assessments from all therapy disciplines and other pertinent clinicians. The plan of care has been reviewed and discussed in collaboration with the interdisciplinary team. The plan of care will be reviewed and updated at least weekly.
[2021-02-25] MEDS: ENOXAPARIN 40 MG/0.4 ML INJ SUB-Q SCH (08:47)
[2021-02-25] MEDS: POTASSIUM CHLORIDE ER 20 MEQ TAB PO SCH (08:48)
[2021-02-25] MEDS: LISINOPRIL 10 MG TAB PO SCH (08:48)
[2021-02-25] MEDS: DOXAZOSIN 4 MG TAB PO SCH (08:48)
[2021-02-25] MEDS: amLODIPine 10 MG TAB PO SCH (08:48)
[2021-02-25] MEDS: levETIRAcetam 500 MG/5 ML ORAL LIQD PO SCH ×2 (08:49→21:23)
--- NOTE | 2021-02-26 08:35 | Progress Note ---
Subjective Date of service: 02/26/21 Principal diagnosis: CVA Interval history: 76-year-old male who was in [place] when he was noted to have altered mental status and headache. He was taken to nearest ED and had no focal neurologic deficits on presentation. 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 Patient was possibly not compliant with medications per outside hospital reports. Patient later was noted to have epileptiform discharges on EEG and was started on Keppra. Blood pressure was elevated and remains in the 160s to 170s. Home medications were restarted as well as the addition of carvedilol. Patient also experienced agitation and was started on a very low-dose of Seroquel in order to reduce his risk of self injury. Patient has poor safety awareness, somewhat decreased command following at times, and visual impairment on the left. He has been cleared for Lovenox for DVT prophylaxis however has not been restarted on aspirin which he previously took due to the TIA as of yet. Patient also remains on potassium replacement. After the patient was medically stabilized they were transferred for further rehabilitation. All available medical records have been reviewed. Plan of care was discussed with patient and family (, son, daughter are here with the patient this morning). Interval History: Patient is participating in therapy and making slow progress requiring mod to max assist with OT, much cueing with TABBER, and mod assist with PT. Taking rest breaks as needed. -BM recorded, however patient does state that he has had a bowel movement (unreliable historian). Denies pain, palpitations, dyspnea, cough, N/V, or joint pain. Patient remains confused and attempts to talk around questions. Still awaiting for confusion to clear and cognition to improve. Son states that patient attempts to get out of bed in the middle of the night in order to use the restroom. Sitter was ordered over the weekend however family then stated that they would be staying with the patient. Now there is question as to whether or not they will be able to stay, will need to reinstate sitter. Will discuss with rehabilitation nurse. Slight headache according to the patient however he could not give me any information about this and st arted talking about family members schedules. Intracerebral hemorrhage: Continue secondary stroke prevention. Monitor for any signs of worsening hemorrhage intracranially. Monitor for any signs of neurologic decline, shoulder-hand syndrome, aspiration, bowel bladder deficits, sleep dysfunction. Patient is having difficulty with concentration and cognition, will need to continue to reinforce concept with him from all disciplines including PT, OT, speech and nursing. Possibly slight headache today but patient not reliable and could not answer any further questions about that. Patient appears neurologically stable compared to previous exam. Seizure: Continue seizure precautions. Continue Keppra and patient will need to follow-up with neurologist as an outpatient for consideration of discontinuation of Keppra. No seizures so far this admission Hypertension: Blood pressure slightly improved on current medications. Continue to monitor blood pressure over the next several days and adjust medications as needed. Have increased lisinopril to twice daily dosing Left homonymous hemianopsia: Continue therapy and monitor for improvement. Patient will need to learn to scan as much as possible to the weak side in order to avoid obstacles and to pay attention to his environment. Will obtain this during work with therapy sessions performing searches in his environment as well as up and down the hallway. Poor safety awareness: Continue to monitor the patient closely. Bed and chair alarm at use at all times. Have discussed with nursing to try to redirect patient as often as needed. Family has been spending time with the patient and this seems to calm him down as well. Apparently patient tried to get up most of the night despite alarms being activated and nursing staff are requesting a sitter for patient safety. Cognitive dysfunction: Hopefully this will improve with time as the patient has an ICH. We will continue working with speech therapy to improve and have all disciplines reinforce reorientation and monitor for clearing. Insomnia: Patient is awakening during the night and having difficulty going back to sleep her family who are spending the night in the room with him. Patient asked Jhony himself to a safety risk by attempting to get out of bed to urinate even though condom cath is in place. Apparently the patient was receiving Seroquel low-dose at the outside hospital which allowed him to sleep mostly through the night. This has been available as needed currently but we will change that to scheduled at the continued low dose. If need be, we can consider increasing the dose. All records, vitals, labs and medications were reviewed. No other issues per patient, nursing or therapy. Patient remains a high risk and/or due to diagnosis of intracerebral hemorrhage with possibility of repeat hemorrhage and worsening of neurologic function. Patient has been cleared for Lovenox by hospital prior to transfer to us however aspirin has not been restarted. Patient also has risk of serious bodily harm and/or due to cognitive dysfu nction and poor safety awareness leading him to possibility of falls even with use of bed and chair alarms and frequent monitoring by staff. Greater than 35 minutes was spent examining the patient and performing extended questioning with family members present both in person and by phone, followed by extended period time speaking with the family members separate from the patient concerning his progress, prognosis and answering all their questions. Objective - Exam Narrative Exam: MUSCULOSKELETAL SPECIALTY EXAM CONSTITUTIONAL: Well developed, well nourished, appropriately groomed. RIGHT hand dominant. RESPIRATORY: Clear to auscultation bilaterally, no increased work of breathing CARDIOVASCULAR: Regular Rate/ Rhythm, no swelling, edema or tenderness in BUE or BLE. All extremities warm. GI: + bowel sounds, soft, NTTP, nondistended. INTEGUMENTARY: Normal, no lesion, rash, masses or bruising noted in extremities. MUSCULOSKELETAL: BUE and BLE normal without defect, crepitus, subluxation, effusion, arthritic changes or TTP. R 5 /5 L 4 /5 ROM normal Tone normal NEURO: CN II : Left homonymous hemianopsia CN VII : Slight left facial droop CN IX, X : Palate/uvula elevate midline, phonation softened but not hoarse CN XI : Intact shoulder shrug and decreased head rotation Sensation intact in all extremities with extinction on the left. No tremor noted in 4 extremities. Follows 1 step commands partially. Aphasia not appreciated Dysarthria possibly slightly present but difficult to tell due to patient's fatigue and softened voice Dysphagia patient with food in mouth, possibly oral motor Neglect not appreciated, inattention seems present Poor safety awareness with cognitive dysfunction POSTURE and GAIT: Sitting posture good. Balance and gait observed with therapy, gait fairly reasonable with crouched knees and occasional loss of balance utilizing rolling walker. PSYCH: Alert, disoriented, affect appears blunted. Insight impaired, speech has circuitous property but then the patient also veers completely away from topic at hand - Constitutional Vitals: Vital Signs - 12hr 02/26/21 06:52 Temperature 98.3 F Pulse Rate 53 L Respiratory 18 Rate Blood Pressure 163/73 O2 Sat by Pulse 98 Oximetry - Allied health notes Allied health notes reviewed: nursing, PT, ST, OT FIMS assessment as documented by PT/OT/ST: Grooming Patient cleans teeth/dentures: No Patient bernstein/brushes hair: Yes Patient washes, rinses and Yes dries face: Patient washes, rinses and Yes dries hands: Patient shaves: No Patient performs (no make-up/ 3/4 (75%) shaving): Grooming FIM Score 3. Moderate Assistance (Patient = 50% or more) Toileting Toileting FIM Score 1. Total Assistance (Patient less than 25%. 2 or more persons.) Social interaction/Memory/Problem solving Social Interaction FIM Score 2. Maximal Assistance (Appropriate 25-49% or needs restraint.) Memory FIM Score 3. Moderate Assistance (Recognizes and remembers 50-74%.) Problem Solving FIM Score 2. Maximal Assistance (Solves problems 25-49% or needs restraint.) Transfers Mode of Locomotion: Wheelchair Bed/Chair/Wheelchair Transfers 2. Maximal Assistance (Patient = 25% or more) FIM Score Toilet Transfers FIM Score 4. Minimal Assistance (Patient = 75% or more. Needs touching.) Patient transferred to: Shower Shower Transfers FIM Score 4. Minimal Assistance (Patient = 75% or more. Needs touching.) Locomotion- walk/wheelchair Ambulation Distance 340 Eating Eating FIM Score 3. Moderate Assistance (Patient = 50% or more) Dressing-Upper body Patient retrieves clothing No items: Patient applies/removes UE No: N/A prosthesis or orthosis: Upper Body Dressing FIM Score 2. Maximal Assistance (Patient = 25% or more) Dressing-lower body Patient retrieves clothing No items: Patient applies/removes LE No: N/A prosthesis or orthosis: Lower Body Dressing FIM Score 2. Maximal Assistance (Patient = 25% or more) - Labs CBC & Chem 7: 02/22/21 04:50 02/24/21 06:49 Labs: Laboratory Results - last 72 hr 02/24/21 06:49 Sodium 131 L Potassium 3.7 Chloride 93.1 L Carbon Dioxide 28 Anion Gap 14 BUN 16 Creatinine 0.7 L Estimated GFR > 60 BUN/Creatinine Ratio 23 Glucose 175 H Calcium 9.4 Magnesium 2.40 H Assessment and Plan Intracerebral hemorrhage: Continue Secondary Stroke Prevention (Antithrombotic on hold, Statin (Goal LDL-C <70), BP control (Goal <140/90), GLU control (Goal A1c <7), and lifestyle modification). Monitor for recurrent stroke or post- stroke recrudescence. Continue neuromotor therapy as above. Family training when available. Monitor for post stroke depression, cognitive deficits, seizure, dysphagia, aphasia, shoulder hand syndrome, sensory deficits, spasticity, bowel/bladder deficits, sleep disturbance, vision deficits and DVT. Prognosis for recovery and Secondary Stroke Prevention discussed. Follow up with Neurology. No driving until cleared by Neurologist. Seizure: Maintain seizure precautions, continue Keppra for prophylaxis. Patient will need follow-up with neurologist for consideration of removal of Keppra in several months. Hypertension: Continue medication. Monitor blood pressure. Adjust medications as needed for normotension. Hold for hypotension. Goal SBP <140. Monitor and adjust medications as needed for better pressure control. Left homonymous hemianopsia: Continue therapy to improve the patient's ability to recognize and scan on his left side. Patient seems to have poor awareness of visual deficits and has not been able to appropriately scan for visual input yet. Poor safety awareness: Continue to monitor the patient closely for safety. Bed alarm and wheelchair alarm/seatbelt in use. Nursing requesting sitter as patient continues to get up despite alarms. Will need to continue working with the patient to improve his safety awareness. Low-dose Seroquel place for inte rmittent agitation which the patient was having at [facility] prior to discharge, have change Seroquel to scheduled. Cognitive dysfunction: Continue working with TABBER to improve patient's cognition and memory . Will need to monitor sleep-wake cycles and may need to start trazodone if the patient is not sleeping well at night. Have discussed with the patient's family that decreased stimulation may be a good thing during the day and not to over stimulate him. ADL dysfunction: OT will work on improving ability to perform ADLs (including assistive devices) to increase independence and decrease caregiver burden and improve functional transfers and mobility training. Difficulty walking: PT will work on gait training and proper use of assistive devices and advance as appropriate to use of stairs and outside ambulation on uneven surfaces. Unsteadiness on feet: PT will work on improving static and dynamic sitting and standing balance as well as proper use of assistive devices to decrease risk of falls. Abnormality of gait: PT will work to improve safety and efficiency of gait through neuromotor training and gait training along with instruction on proper use of assistive devices. Muscle weakness: PT & OT will work on strengthening exercises to improve functional strength including mixture of closed and open kinetic chain exercises. Debility: PT & OT will work on improving overall functional status to improve participation with ADLs, mobility and social involvement. Fatigue: PT & OT will work on improving endurance through aerobic exercises and therapeutic activity while monitoring patients tolerance for activity and vital signs as needed. DVT ppx: Lovenox Pain: Continue physical modalities in therapy and pain medications as needed to achieve functional pain control. Sleep: Monitor and address as needed. Bowel: Monitor and address as needed. Appetite: Monitor and address as needed. Discharge planning: Pending therapy progress and care plan meeting. Will continue discussion with therapy team, SW, patient and family. Restrictions/ Precautions: Falls, seizure, cognition WB status: FWB Functional Hx: ADLs: Independent Cognition: Independent Mobility: No AD Barriers to Discharge: Decreased mobility and ability to perform self care, balance deficits, weakness Estimated Length of Stay: 1418 days Discharge Destination: Home with family
[2021-02-26] MEDS: amLODIPine 10 MG TAB PO SCH (10:28)
[2021-02-26] MEDS: LISINOPRIL 10 MG TAB PO SCH ×2 (10:28→22:59)
[2021-02-26] MEDS: DOXAZOSIN 4 MG TAB PO SCH (10:29)
[2021-02-26] MEDS: POTASSIUM CHLORIDE ER 20 MEQ TAB PO SCH (10:34)
[2021-02-26] MEDS: levETIRAcetam 500 MG/5 ML ORAL LIQD PO SCH ×2 (12:25→22:58)
[2021-02-26] MEDS: ENOXAPARIN 40 MG/0.4 ML INJ SUB-Q SCH (14:27)
[2021-02-26] MEDS: QUEtiapine 25 MG TAB PO SCH (23:00)
--- NOTE | 2021-02-27 09:51 | Progress Note ---
Subjective Date of service: 02/27/21 Principal diagnosis: CVA Interval history: 76-year-old male who was in [place] when he was noted to have altered mental status and headache. He was taken to nearest ED and had no focal neurologic deficits on presentation. 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 Patient was possibly not compliant with medications per outside hospital reports. Patient later was noted to have epileptiform discharges on EEG and was started on Keppra. Blood pressure was elevated and remains in the 160s to 170s. Home medications were restarted as well as the addition of carvedilol. Patient also experienced agitation and was started on a very low-dose of Seroquel in order to reduce his risk of self injury. Patient has poor safety awareness, somewhat decreased command following at times, and visual impairment on the left. He has been cleared for Lovenox for DVT prophylaxis however has not been restarted on aspirin which he previously took due to the TIA as of yet. Patient also remains on potassium replacement. After the patient was medically stabilized they were transferred for further rehabilitation. All available medical records have been reviewed. Plan of care was discussed with patient and family (, son, daughter are here with the patient this morning). Interval History: Patient is participating in therapy and making slow progress has poor carryover day-to-day and even within the same treatment period. Taking rest breaks as needed. -BM recorded, medications have been scheduled. Denies pain, p alpitations, dyspnea, cough, N/V, or joint pain. Patient remains confused and attempts to talk around questions. Still awaiting for confusion to clear and cognition to improve. Sitter has been ordered however some question as to whether or not they will be available since the son is staying overnight. Intracerebral hemorrhage: Continue secondary stroke prevention. Monitor for any signs of worsening hemorrhage intracranially. Monitor for any signs of neurologic decline, shoulder-hand syndrome, aspiration, bowel bladder deficits, sleep dysfunction. Patient is having difficulty with concentration and cognition, will need to continue to reinforce concept with him from all disciplines including PT, OT, speech and nursing. Patient appears neurologically stable compared to previous exam. Seizure: Continue seizure precautions. Continue Keppra and patient will need to follow-up with neurologist as an outpatient for consideration of discontinuation of Keppra. No seizures so far this admission Hypertension: Blood pressure improved on current medications. Continue to monitor blood pressure over the next several days and adjust medications as needed. Have increased lisinopril to twice daily dosing Left homonymous hemianopsia: Continue therapy and monitor for improvement. Aysha ent will need to learn to scan as much as possible to the weak side in order to avoid obstacles and to pay attention to his environment. Will obtain this during work with therapy sessions performing searches in his environment as well as up and down the hallway. Poor safety awareness: Continue to monitor the patient closely. Bed and chair alarm at use at all times. Have discussed with nursing to try to redirect patient as often as needed. Family has been spending time with the patient and this seems to calm him down as well. Patient slept better overnight and according to the son only attempted to get out of bed one time. We will continue scheduled Seroquel, sitter when available, and bed/chair alarms. Cognitive dysfunction: Hopefully this will improve with time as the patient has an ICH. We will continue working with speech therapy to improve and have all disciplines reinforce reorientation and monitor for clearing. Insomnia: Patient is awakening during the night and having difficulty going back to sleep her family who are spending the night in the room with him. Seroquel has been scheduled, increase dose if needed All records, vitals, labs and medications were reviewed. No other issues per patient, nursing or therapy. Patient remains a high risk and/or due to diagnosis of intracerebral hemorrhage with possibility of repeat hemorrhage and worsening of neurologic function. Patient has been cleared for Lovenox by hospital prior to transfer to us however aspirin has not been restarted. Patient also has risk of serious bodily harm and/or due to cognitive dysfunction and poor safety awareness leading him to possibility of falls even with use of bed and chair alarms and frequent monitoring by staff. Patient was discussed during team conference. Physically the patient is doing okay however insight, cognition, carryover are all very poor. Was told that the patient was up most of the night last night however in speaking with the son apparently he only got up once versus every hour as in the past. We will continue the scheduled Seroquel at a low dose. Will hold a family meeting on in order to discuss for the family and make sure that they are not caught off guard and know that they will need 24/7 care to be available for him. If the patient does not start to improve cognitively in the near term, may be better off at a custodial facility, assisted living facility, or home environment with caregivers. Objective - Exam Narrative Exam: MUSCULOSKELETAL SPECIALTY EXAM CONSTITUTIONAL: Well developed, well nourished, appropriately groomed. RIGHT hand dominant. RESPIRATORY: Clear to auscultation bilaterally, no increased work of breathing CARDIOVASCULAR: Regular Rate/ Rhythm, no swelling, edema or tenderness in BUE or BLE. All extremities warm. GI: + bowel sounds, soft, NTTP, nondistended. INTEGUMENTARY: Normal, no lesion, rash, masses or bruising noted in extremities. MUSCULOSKELETAL: BUE and BLE normal without defect, crepitus, subluxation, effusion, arthritic changes or TTP. R 5 /5 L 4 /5 ROM normal Tone normal NEURO: CN II : Left homonymous hemianopsia CN VII : Slight left facial droop CN IX, X : Palate/uvula elevate midline, phonation softened but not hoarse CN XI : Intact shoulder shrug and decreased head rotation Sensation intact in all extremities with extinction on the left. No tremor noted in 4 extremities. Follows 1 step commands partially. Aphasia not appreciated Dysarthria possibly slightly present but difficult to tell due to patient's fatigue and softened voice Dysphagia not appreciated Neglect not appreciated, inattention seems present Poor safety awareness with cognitive dysfunction POSTURE and GAIT: Sitting posture good. Balance and gait observed with therapy, gait fairly reasonable with crouched knees and occasional loss of balance utilizing rolling walker. PSYCH: Alert, disoriented, affect appears blunted. Insight impaired, speech has circuitous property but then the patient also veers completely away from topic at hand. Patient is now stating that he knows he is confused and that things do not make sense to him. May actually be starting to clear slightly - Constitutional Vitals: Vital Signs - 12hr 02/26/02/27/21 22:59 07:21 Temperature 97.4 F L Pulse Rate 68 78 Respiratory 16 Rate Blood Pressure 130/78 122/70 O2 Sat by Pulse 99 Oximetry - Allied health notes Allied health notes reviewed: nursing, PT, ST, OT FIMS assessment as documented by PT/OT/ST: Grooming Patient cleans teeth/dentures: No Patient bernstein/brushes hair: Yes Patient washes, rinses and Yes dries face: Patient washes, rinses and Yes dries hands: Patient shaves: No Patient performs (no make-up/ 3/4 (75%) shaving): Grooming FIM Score 3. Moderate Assistance (Patient = 50% or more) Toileting Toileting FIM Score 1. Total Assistance (Patient less than 25%. 2 or more persons.) Social interaction/Memory/Problem solving Social Interaction FIM Score 2. Maximal Assistance (Appropriate 25-49% or needs restraint.) Memory FIM Score 2. Maximal Assistance (Recognizes and remembers 25-49%.) Problem Solving FIM Score 2. Maximal Assistance (Solves problems 25-49% or needs restraint.) Transfers Mode of Locomotion: Wheelchair Bed/Chair/Wheelchair Transfers 3. Moderate Assistance (Patient = 50% or more. FIM Score Some lifting.) Toilet Transfers FIM Score 4. Minimal Assistance (Patient = 75% or more. Needs touching.) Patient transferred to: Shower Shower Transfers FIM Score 4. Minimal Assistance (Patient = 75% or more. Needs touching.) Locomotion- walk/wheelchair Ambulation Distance 340 Eating Eating FIM Score 2. Maximal Assistance (Patient = 25% or more) Dressing-Upper body Patient retrieves clothing No items: Patient applies/removes UE No: N/A prosthesis or orthosis: Upper Body Dressing FIM Score 2. Maximal Assistance (Patient = 25% or more) Dressing-lower body Patient retrieves clothing No items: Patient applies/removes LE No: N/A prosthesis or orthosis: Lower Body Dressing FIM Score 2. Maximal Assistance (Patient = 25% or more) - Labs CBC & Chem 7: 02/22/21 04:50 02/24/21 06:49 Assessment and Plan Intracerebral hemorrhage: Continue Secondary Stroke Prevention (Antithrombotic on hold, Statin (Goal LDL-C <70), BP control (Goal <140/90), GLU control (Goal A1c <7), and lifestyle modification). Monitor for recurrent stroke or post- stroke recrudescence. Continue neuromotor therapy as above. Family training when available. Monitor for post stroke depression, cognitive deficits, seizure, dysphagia, aphasia, shoulder hand syndrome, sensory deficits, spasticity, bowel/bladder deficits, sleep disturbance, vision deficits and DVT. Prognosis for recovery and Secondary Stroke Prevention discussed. Follow up with Neurology. No driving until cleared by Neurologist. Seizure: Maintain seizure precautions, continue Keppra for prophylaxis. Patient will need follow-up with neurologist for consideration of removal of Keppra in several months. Hypertension: Continue medication. Monitor blood pressure. Adjust medications as needed for normotension. Hold for hypotension. Goal SBP <140. Monitor and adjust medications as needed for better pressure control. Left homonymous hemianopsia: Continue therapy to improve the patient's ability to recognize and scan on his left side. Patient seems to have poor awareness of visual deficits and has not been able to appropriately scan for visual input yet. Poor safety awareness: Continue to monitor the patient closely for safety. Bed alarm and wheelchair alarm/seatbelt in use. Nursing requesting sitter as patient continues to get up despite alarms. Will need to continue working with the patient to improve his safety awareness. Low-dose Seroquel place for in termittent agitation which the patient was having at [facility] prior to discharge, have change Seroquel to scheduled. Cognitive dysfunction: Continue working with [facility] to improve patient's cognition and memory . Will need to monitor sleep-wake cycles and may need to start trazodone if the patient is not sleeping well at night. Have discussed with the patient's family that decreased stimulation may be a good thing during the day and not to over stimulate him. ADL dysfunction: OT will work on improving ability to perform ADLs (including assistive devices) to increase independence and decrease caregiver burden and improve functional transfers and mobility training. Difficulty walking: PT will work on gait training and proper use of assistive devices and advance as appropriate to use of stairs and outside ambulation on uneven surfaces. Unsteadiness on feet: PT will work on improving static and dynamic sitting and standing balance as well as proper use of assistive devices to decrease risk of falls. Abnormality of gait: PT will work to improve safety and efficiency of gait through neuromotor training and gait training along with instruction on proper use of assistive devices. Muscle weakness: PT & OT will work on strengthening exercises to improve functional strength including mixture of closed and open kinetic chain exercises. Debility: PT & OT will work on improving overall functional status to improve participation with ADLs, mobility and social involvement. Fatigue: PT & OT will work on improving endurance through aerobic exercises and therapeutic activity while monitoring patients tolerance for activity and vital signs as needed. DVT ppx: Lovenox Pain: Continue physical modalities in therapy and pain medications as needed to achieve functional pain control. Sleep: Monitor and address as needed. Bowel: Monitor and address as needed. Appetite: Monitor and address as needed. Discharge planning: Pending therapy progress and care plan meeting. Will continue discussion with therapy team, SW, patient and family. Will have family meeting this to discuss discharge plans. At this point, if patient does not start making some improvements in carryover and cognition, it would likely be a shorter stay than we initially planned. Restrictions/ Precautions: Falls, seizure, cognition WB status: FWB Functional Hx: ADLs: Independent Cognition: Independent Mobility: No AD Barriers to Discharge: Decreased mobility and ability to perform self care, ba barrett deficits, weakness Estimated Length of Stay: 1418 days Discharge Destination: Home with family, will need 24/7 care if condition does not improve
[2021-02-27] MEDS: levETIRAcetam 500 MG/5 ML ORAL LIQD PO SCH ×2 (12:20→21:59)
[2021-02-27] MEDS: amLODIPine 10 MG TAB PO SCH (12:25)
[2021-02-27] MEDS: POTASSIUM CHLORIDE ER 20 MEQ TAB PO SCH (13:05)
[2021-02-27] MEDS: ENOXAPARIN 40 MG/0.4 ML INJ SUB-Q SCH (13:18)
[2021-02-27] MEDS: LISINOPRIL 10 MG TAB PO SCH ×2 (13:20→22:01)
[2021-02-27] MEDS: DOXAZOSIN 4 MG TAB PO SCH (13:26)
[2021-02-27 15:30] LABS: Hemoglobin 12.8 gm/dl (11.8-15.2); Mean Corpuscular HGB Conc 36 % (32-34); Mean Corpuscular Volume 84 fl (84-94); Platelet Count 266 K/mm3 (140-440); Red Blood Count 4.27 M/mm3 (3.65-5.03)
[2021-02-27 15:52] LABS: BUN/Creatinine Ratio 20; Blood Urea Nitrogen 18 mg/dL (9-20); Calcium 9.3 mg/dL (8.4-10.2); Hemolysis Index 15
[2021-02-27] MEDS: QUEtiapine 25 MG TAB PO SCH (21:59)
[2021-02-28] MEDS: ENOXAPARIN 40 MG/0.4 ML INJ SUB-Q SCH (07:44)
[2021-02-28] MEDS: POTASSIUM CHLORIDE ER 20 MEQ TAB PO SCH (07:45)
[2021-02-28] MEDS: levETIRAcetam 500 MG/5 ML ORAL LIQD PO SCH ×2 (07:45→22:05)
[2021-02-28] MEDS: DOXAZOSIN 4 MG TAB PO SCH (07:46)
[2021-02-28] MEDS: amLODIPine 10 MG TAB PO SCH (07:47)
[2021-02-28] MEDS: LISINOPRIL 10 MG TAB PO SCH ×2 (07:47→22:20)
--- NOTE | 2021-02-28 08:11 | Progress Note ---
Subjective Date of service: 02/28/21 Principal diagnosis: CVA Interval history: 76-year-old male who was in [place] when he was noted to have altered mental status and headache. He was taken to nearest ED and had no focal neurologic deficits on presentation. 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 Patient was possibly not compliant with medications per outside hospital reports. Patient later was noted to have epileptiform discharges on EEG and was started on Keppra. Blood pressure was elevated and remains in the 160s to 170s. Home medications were restarted as well as the addition of carvedilol. Patient also experienced agitation and was started on a very low-dose of Seroquel in order to reduce his risk of self injury. Patient has poor safety awareness, somewhat decreased command following at times, and visual impairment on the left. He has been cleared for Lovenox for DVT prophylaxis however has not been restarted on aspirin which he previously took due to the TIA as of yet. Patient also remains on potassium replacement. After the patient was medically stabilized they were transferred for further rehabilitation. All available medical records have been reviewed. Plan of care was discussed with patient and family (, son, daughter are here with the patient this morning). Interval History: Patient is participating in therapy and making slow progress has poor carryover day-to-day and even within the same treatment period. Taking rest breaks as needed. -BM recorded, medications have been scheduled. Denies pain, p alpitations, dyspnea, cough, N/V, or joint pain. Patient remains confused and is attempting to go into other rooms this morning stating that he left things in these other patients rooms. Still awaiting for confusion to clear and cognition to improve. Sitter was previously ordered however some question as to whether or not they will be available since the son is staying overnight. Intracerebral hemorrhage: Continue secondary stroke prevention. Monitor for any signs of worsening hemorrhage intracranially. Monitor for any signs of neurologic decline, shoulder-hand syndrome, aspiration, bowel bladder deficits, sleep dysfunction. Patient is having difficulty with concentration and cogniti on, will need to continue to reinforce concept with him from all disciplines including PT, OT, speech and nursing. Patient appears neurologically stable compared to previous exam. Seizure: Continue seizure precautions. Continue Keppra and patient will need to follow-up with neurologist as an outpatient for consideration of discontinuation of Keppra. No seizures so far this admission Hypertension: Blood pressure improved on current medications. Continue to monitor blood pressure and adjust medications as needed. Blood pressure improved since increasing lisinopril to twice daily dosing Left homonymous hemianopsia: Continue therapy and monitor for improvement. Patient will need to learn to scan as much as possible to the weak side in order to avoid obstacles and to pay attention to his environment. Will obtain this during work with therapy sessions performing searches in his environment as well as up and down the hallway. Poor safety awareness: Continue to monitor the patient closely. Bed and chair alarm at use at all times. Have discussed with nursing to try to redirect pa tient as often as needed. Family has been spending time with the patient and this seems to calm him down as well. Patient slept better overnight and according to the son only attempted to get out of bed one time. We will continue scheduled Seroquel, sitter when available, and bed/chair alarms. Cognitive dysfunction: Hopefully this will improve with time as the patient has an ICH. We will continue working with speech therapy to improve and have all disciplines reinforce reorientation and monitor for clearing. Insomnia: Patient is awakening during the night and having difficulty going back to sleep her family who are spending the night in the room with him. Seroquel has been scheduled, increase dose if needed. Seems improved on increased dosing All records, vitals, labs and medications were reviewed. No other issues per patient, nursing or therapy. Patient remains a high risk and/or due to diagnosis of intracerebral hemorrhage with possibility of repeat hemorrhage and worsening of neurologic function. Patient has been cleared for Lovenox by hospital prior to transfer to us however aspirin has not been restarted. Patient also has risk of serious bodily harm and/or due to cognitive dysfunction and poor safety awareness leading him to possibility of falls even with use of bed and chair alarms and frequent monitoring by staff. Plan to have a family conference tomorrow in order to fully discuss patient's condition and discharge plans. If patient does not start to improve shortly, we may need to move forward with alternative discharge into a memory care or subacute rehab type facility. Alternatively, patient may go home with family as long as they are able to provide significant care and 24/7 monitoring. Objective - Exam Narrative Exam: MUSCULOSKELETAL SPECIALTY EXAM CONSTITUTIONAL: Well developed, well nourished, appropriately groomed. RIGHT hand dominant. RESPIRATORY: Clear to auscultation bilaterally, no increased work of breathing CARDIOVASCULAR: Regular Rate/ Rhythm, no swelling, edema or tenderness in BUE or BLE. All extremities warm. GI: + bowel sounds, soft, NTTP, nondistended. INTEGUMENTARY: Normal, no lesion, rash, masses or bruising noted in extremities. MUSCULOSKELETAL: BUE and BLE normal without defect, crepitus, subluxation, effusion, arthritic changes or TTP. R 5 /5 L 4 /5 ROM normal Tone normal NEURO: CN II : Left homonymous hemianopsia CN VII : Slight left facial droop CN IX, X : Palate/uvula elevate midline, phonation softened but not hoarse CN XI : Intact shoulder shrug and decreased head rotation Sensation intact in all extremities with extinction on the left. No tremor noted in 4 extremities. Follows 1 step commands partially. Aphasia not appreciated Dysarthria possibly slightly present but difficult to tell due to patient's fatigue and softened voice Dysphagia not appreciated Neglect not appreciated, inattention seems present Poor safety awareness with cognitive dysfunction POSTURE and GAIT: Sitting posture good. Balance and gait observed with therapy, gait fairly reasonable with crouched knees and occasional loss of balance utilizing rolling walker. PSYCH: Alert, disoriented, affect appears blunted. Insight impaired, speech has circuitous property but then the patient also veers completely away from topic at hand. Patient is now stating that he knows he is confused and that things do not make sense to him. May actually be starting to clear slightly - Constitutional Vitals: Vital Signs - 12hr 02/27/21 02/27/21 02/28/21 20:14 22:01 04:40 Temperature 97.8 F 98.3 F Pulse Rate 66 55 L Respiratory 18 18 Rate Blood Pressure 138/81 138/81 134/76 O2 Sat by Pulse 100 99 Oximetry 02/28/21 07:46 Temperature Pulse Rate 68 Respiratory Rate Blood Pressure 124/52 O2 Sat by Pulse Oximetry - Allied health notes Allied health notes reviewed: nursing, PT, ST, OT FIMS assessment as documented by PT/OT/ST: Grooming Patient cleans teeth/dentures: No Patient bernstein/brushes hair: Yes Patient washes, rinses and Yes dries face: Patient washes, rinses and Yes dries hands: Patient shaves: No Patient performs (no make-up/ 3/4 (75%) shaving): Grooming FIM Score 3. Moderate Assistance (Patient = 50% or more) Toileting Toileting FIM Score 1. Total Assistance (Patient less than 25%. 2 or more persons.) Social interaction/Memory/Problem solving Social Interaction FIM Score 2. Maximal Assistance (Appropriate 25-49% or needs restraint.) Memory FIM Score 2. Maximal Assistance (Recognizes and remembers 25-49%.) Problem Solving FIM Score 2. Maximal Assistance (Solves problems 25-49% or needs restraint.) Transfers Mode of Locomotion: Wheelchair Bed/Chair/Wheelchair Transfers 3. Moderate Assistance (Patient = 50% or more. FIM Score Some lifting.) Toilet Transfers FIM Score 4. Minimal Assistance (Patient = 75% or more. Needs touching.) Patient transferred to: Shower Shower Transfers FIM Score 4. Minimal Assistance (Patient = 75% or more. Needs touching.) Locomotion- walk/wheelchair Ambulation Distance 340 Eating Eating FIM Score 2. Maximal Assistance (Patient = 25% or more) Dressing-Upper body Patient retrieves clothing No items: Patient applies/removes UE No: N/A prosthesis or orthosis: Upper Body Dressing FIM Score 2. Maximal Assistance (Patient = 25% or more) Dressing-lower body Patient retrieves clothing No items: Patient applies/removes LE No: N/A prosthesis or orthosis: Lower Body Dressing FIM Score 2. Maximal Assistance (Patient = 25% or more) - Labs CBC & Chem 7: 02/27/21 14:36 02/27/21 14:36 Labs: Laboratory Results - last 72 hr 02/27/21 02/27/21 14:36 14:36 WBC 10.6 RBC 4.27 Hgb 12.8 Hct 36.0 MCV 84 MCH 30 MCHC 36 H RDW 14.0 Plt Count 266 Sodium 134 L Potassium 3.7 Chloride 99.2 Carbon Dioxide 21 L D Anion Gap 18 BUN 18 Creatinine 0.9 Estimated GFR > 60 BUN/Creatinine Ratio 20 Glucose 100 Calcium 9.3 Assessment and Plan Intracerebral hemorrhage: Continue Secondary Stroke Prevention (Antithrombotic on hold, Statin (Goal LDL-C <70), BP control (Goal <140/90), GLU control (Goal A1c <7), and lifestyle modification). Monitor for recurrent stroke or post- stroke recrudescence. Continue neuromotor therapy as above. Family training when available. Monitor for post stroke depression, cognitive deficits, seizure, dysphagia, aphasia, shoulder hand syndrome, sensory deficits, spasticity, bowel/bladder deficits, sleep disturbance, vision deficits and DVT. Prognosis for recovery and Secondary Stroke Prevention discussed. Follow up with Neurology. No driving until cleared by Neurologist. Seizure: Maintain seizure precautions, continue Keppra for prophylaxis. Patient will need follow-up with neurologist for consideration of removal of Keppra in several months. Hypertension: Continue medication. Monitor blood pressure. Adjust medications as needed for normotension. Hold for hypotension. Goal SBP <140. Monitor and adjust medications as needed for better pressure control. Left homonymous hemianopsia: Continue therapy to improve the patient's ability to recognize and scan on his left side. Patient seems to have poor awareness of visual deficits and has not been able to appropriately scan for visual input yet. Poor safety awareness: Continue to monitor the patient closely for safety. Bed alarm and wheelchair alarm/seatbelt in use. Nursing requesting sitter as patient continues to get up despite alarms. Will need to continue working with the patient to improve his safety awareness. Low-dose Seroquel place for intermittent agitation which the patient was having at [facility] prior to discharge, have change Seroquel to scheduled. Cognitive dysfunction: Continue working with [facility] to improve patient's cognition and memory . Will need to monitor sleep-wake cycles and may need to start trazodone if the patient is not sleeping well at night. Have discussed with the patient's family that decreased stimulation may be a good thing during the day and not to over stimulate him. ADL dysfunction: OT will work on improving ability to perform ADLs (including assistive devices) to increase independence and decrease caregiver burden and improve functional transfers and mobility training. Difficulty walking: PT will work on gait training and proper use of assistive devices and advance as appropriate to use of stairs and outside ambulation on uneven surfaces. Unsteadiness on feet: PT will work on improving static and dynamic sitting and standing balance as well as proper use of assistive devices to decrease risk of falls. Abnormality of gait: PT will work to improve safety and efficiency of gait through neuromotor training and gait training along with instruction on proper use of assistive devices. Muscle weakness: PT & OT will work on strengthening exercises to improve functional strength including mixture of closed and open kinetic chain exercises. Debility: PT & OT will work on improving overall functional status to improve participation with ADLs, mobility and social involvement. Fatigue: PT & OT will work on improving endurance through aerobic exercises and therapeutic activity while monitoring patients tolerance for activity and vital signs as needed. DVT ppx: Lovenox Pain: Continue physical modalities in therapy and pain medications as needed to achieve functional pain control. Sleep: Monitor and address as needed. Bowel: Monitor and address as needed. Appetite: Monitor and address as needed. Discharge planning: Pending therapy progress and care plan meeting. Will continue discussion with therapy team, SW, patient and family. Will have family meeting this to discuss discharge plans. At this point, if patient does not start making some improvements in carryover and cognition, it would likely be a shorter stay than we initially planned. Restrictions/ Precautions: Falls, seizure, cognition WB status: FWB Functional Hx: ADLs: Independent Cognition: Independent Mobility: No AD Barriers to Discharge: Decreased mobility and ability to perform self care, balance deficits, weakness Estimated Length of Stay: 1418 days Discharge Destination: Home with family versus alternative discharge plans to be discussed on , will need / care if condition does not improve
[2021-02-28] MEDS: POLYETHYLENE GLYCOL 3350 17 GM POWDER PO SCH (08:37)
[2021-02-28] MEDS: QUEtiapine 25 MG TAB PO SCH (22:05)
--- NOTE | 2021-03-01 09:15 | Progress Note ---
Subjective Date of service: 03/01/21 Principal diagnosis: CVA Interval history: 76-year-old male who was in [place] when he was noted to have altered mental status and headache. He was taken to nearest ED and had no focal neurologic deficits on presentation. 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 Patient was possibly not compliant with medications per outside hospital reports. Patient later was noted to have epileptiform discharges on EEG and was started on Keppra. Blood pressure was elevated and remains in the 160s to 170s. Home medications were restarted as well as the addition of carvedilol. Patient also experienced agitation and was started on a very low-dose of Seroquel in order to reduce his risk of self injury. Patient has poor safety awareness, somewhat decreased command following at times, and visual impairment on the left. He has been cleared for Lovenox for DVT prophylaxis however has not been restarted on aspirin which he previously took due to the TIA as of yet. Patient also remains on potassium replacement. After the patient was medically stabilized they were transferred for further rehabilitation. All available medical records have been reviewed. Plan of care was discussed with patient and family (, son, daughter are here with the patient this morning). Interval History: Patient is participating in therapy and making slow progress has poor carryover day-to-day and even within the same treatment period. Taking rest breaks as needed. +BM. Denies pain, palpitations, dyspnea, cough, N/V, or joint pain. Patient remains confused. Had a conversation with the patient and the son to illustrate the level of confusion and asked various questions concerning safety awareness including questions about driving, what he would do in certain circumstances. Patient still thinks it would be okay for him to drive and with all questioning tends to veer off into other directions of conversation and has to be brought back to the main question. Patient also continues to have poor carryover which was demonstrated by asking me several times within a 5-minute period when he would see me next. Also perseverates on needing to make travel arrangements for other family members that are supposedly coming down even though the son repeatedly tells him that there are no travel plans for anyone currently. Hopefully with time he will continue to clear and improve cognitively however I did apprise the family during our conference call that this may be his new normal. In total, 35 minutes was invested in the patient evaluation and exam today and in talking with the patient/son. Intracerebral hemorrhage: Continue secondary stroke prevention. Monitor for any signs of worsening hemorrhage intracranially. Monitor for any signs of neurologic decline, shoulder-hand syndrome, aspiration, bowel bladder deficits, sleep dysfunction. Patient is having difficulty with concentration and cognition, will need to continue to reinforce concept with him from all disciplines including PT, OT, speech and nursing. Patient appears neurologically stable compared to previous exam. Seizure: Continue seizure precautions. Continue Keppra and patient will need to follow-up with neurologist as an outpatient for consideration of discontinuation of Keppra. No seizures so far this admission Hypertension: Blood pressure improved on current medications. Continue to monitor blood pressure and adjust medications as needed. Blood pressure improved since increasing lisinopril to twice daily dosing Left homonymous hemianopsia: Continue therapy and monitor for improvement. Patient will need to learn to scan as much as possible to the weak side in order to avoid obstacles and to pay attention to his environment. Will obtain this during work with therapy sessions performing searches in his environment as well as up and down the hallway. Poor safety awareness: Continue to monitor the patient closely. Bed and chair alarm at use at all times. Have discussed with nursing to try to redirect patient as often as needed. Family has been spending time with the patient and this seems to calm him down as well. Patient slept better overnight and according to the son only attempted to get out of bed one time. We will continue scheduled Seroquel, sitter when available, and bed/chair alarms. Cognitive dysfunction: Hopefully this will improve with time as the patient has an ICH. We will continue working with speech therapy to improve and have all disciplines reinforce reorientation and monitor for clearing. Insomnia: Patient is awakening during the night and having difficulty going back to sleep her family who are spending the night in the room with him. Seroquel has been scheduled, increase dose if needed. Seems improved on increased dosing All records, vitals, labs and medications were reviewed. No other issues per patient, nursing or therapy. Patient remains a high risk and/or due to diagnosis of intracerebral hemorrhage with possibility of repeat hemorrhage and worsening of neurologic function. Patient has been cleared for Lovenox by hospital prior to transfer to us however aspirin has not been restarted. Patient also has risk of serious bodily harm and/or due to cognitive dysfunction and poor safety awareness leading him to possibility of falls even with use of bed and chair alarms and frequent monitoring by staff. Family conference held today and a little over 1 hour was spent with the family members one in person the rest on Zoom. We discussed the patient's progress with PT and OT and his lack of progress with cognitive ability. Discussed his lack of carryover and his poor insight into safety awareness. While we are still hopeful that the patient may indeed regain cognitive function and improve his functional ability in the future, his improvement on the physical side (physical therapy and Occupational Therapy) is such that we cannot continue to keep him for just cognitive deficits. We discussed 2 possibilities primarily, first is the patient going home with family and their need for 24/7 supervision and items which would be helpful including a alarm for any doors, a safe place to put the keys where he does not have access to be able to drive, either a bed alarm or a floor alarm to place by the bed, and enough caregiver support to not place all the burden on 1 person. Discussed that he would be able to have home health for a period of time but uncertain with his current condition how long they would be able to see him and that they may also want to order outside assistance that they would need to pay for outside of insurance. At this point, his primary issue is going to be cognition and just needing supervision/redirection. We also outlined the idea of going to a [facility] facility, he does have Medicare and this would be a viable option however he has advanced enough that he may not be on the short-term side long before they need to change him over to the long-term care side. Gave the family a list of facilities in their area. They are going to discuss the options as a family. We also discussed that we need to make a decision by Friday and would recommend that we do both in tandem and have the and whoever else may be coming in to assist the patient throughout the day so that they understand exact ly what is involved and at the same time we start the process for the [facility] facility. At time of discharge they can choose to go either way. In total, 100 minutes was invested in patient care today with the majority of that time being counseling and coordinating care with the family and the patient and the remainder documentation/examination. Objective - Exam Narrative Exam: MUSCULOSKELETAL SPECIALTY EXAM CONSTITUTIONAL: Well developed, well nourished, appropriately groomed. RIGHT hand dominant. RESPIRATORY: Clear to auscultation bilaterally, no increased work of breathing CARDIOVASCULAR: Regular Rate/ Rhythm, no swelling, edema or tenderness in BUE or BLE. All extremities warm. GI: + bowel sounds, soft, NTTP, nondistended. INTEGUMENTARY: Normal, no lesion, rash, masses or bruising noted in extremities. MUSCULOSKELETAL: BUE and BLE normal without defect, crepitus, subluxation, effusion, arthritic changes or TTP. R 5 /5 L 4 /5 ROM normal Tone normal NEURO: Attempted to retest visual lubin however patient is having difficulty complying with the test requirements. CN II : Left homonymous hemianopsia CN VII : Slight left facial droop CN IX, X : Palate/uvula elevate midline, phonation softened but not hoarse CN XI : Intact shoulder shrug and decreased head rotation Sensation intact in all extremities with extinction on the left. No tremor noted in 4 extremities. Follows 2 step commands partially. Aphasia not appreciated Dysarthria has improved and patient's voice has also become louder Dysphagia not appreciated Neglect not appreciated, inattention seems present Poor safety awareness with cognitive dysfunction remains unchanged but does have slight instances of brief improvement followed by return to prior POSTURE and GAIT: Sitting posture good. Balance and gait observed with therapy, gait has improved and patient is not having any further loss of balance. PSYCH: Alert, disoriented, affect appears blunted. Insight impaired, speech has circuitous property but then the patient also veers completely away from topic at hand. Brief moments of what appear to be insight into his condition typically dissipate fairly quickly unfortunately. Perseveration noted during conversations - Constitutional Vitals: Vital Signs - 12hr 02/28/21 03/01/21 03/01/21 22:20 04:37 05:03 Temperature 97.3 F L Pulse Rate 53 L Respiratory 17 Rate Blood Pressure 126/72 122/69 O2 Sat by Pulse 99 100 Oximetry 03/01/21 07:37 Temperature 97.3 F L Pulse Rate 68 Respiratory 18 Rate Blood Pressure 127/78 O2 Sat by Pulse 100 Oximetry - Allied health notes Allied health notes reviewed: nursing, PT, ST, OT FIMS assessment as documented by PT/OT/ST: Grooming Patient cleans teeth/dentures: No Patient bernstein/brushes hair: Yes Patient washes, rinses and Yes dries face: Patient washes, rinses and Yes dries hands: Patient shaves: No Patient performs (no make-up/ 3/4 (75%) shaving): Grooming FIM Score 3. Moderate Assistance (Patient = 50% or more) Toileting Toileting FIM Score 1. Total Assistance (Patient less than 25%. 2 or more persons.) Social interaction/Memory/Problem solving Social Interaction FIM Score 2. Maximal Assistance (Appropriate 25-49% or needs restraint.) Memory FIM Score 2. Maximal Assistance (Recognizes and remembers 25-49%.) Problem Solving FIM Score 2. Maximal Assistance (Solves problems 25-49% or needs restraint.) Transfers Mode of Locomotion: Wheelchair Bed/Chair/Wheelchair Transfers 3. Moderate Assistance (Patient = 50% or more. FIM Score Some lifting.) Toilet Transfers FIM Score 4. Minimal Assistance (Patient = 75% or more. Needs touching.) Patient transferred to: Shower Shower Transfers FIM Score 4. Minimal Assistance (Patient = 75% or more. Needs touching.) Locomotion- walk/wheelchair Ambulation Distance 340 Eating Eating FIM Score 2. Maximal Assistance (Patient = 25% or more) Dressing-Upper body Patient retrieves clothing No items: Patient applies/removes UE No: N/A prosthesis or orthosis: Upper Body Dressing FIM Score 2. Maximal Assistance (Patient = 25% or more) Dressing-lower body Patient retrieves clothing No items: Patient applies/removes LE No: N/A prosthesis or orthosis: Lower Body Dressing FIM Score 2. Maximal Assistance (Patient = 25% or more) - Labs CBC & Chem 7: 02/27/21 14:36 02/27/21 14:36 Labs: Laboratory Results - last 72 hr 02/27/21 02/27/21 14:36 14:36 WBC 10.6 RBC 4.27 Hgb 12.8 Hct 36.0 MCV 84 MCH 30 MCHC 36 H RDW 14.0 Plt Count 266 Sodium 134 L Potassium 3.7 Chloride 99.2 Carbon Dioxide 21 L D Anion Gap 18 BUN 18 Creatinine 0.9 Estimated GFR > 60 BUN/Creatinine Ratio 20 Glucose 100 Calcium 9.3 Assessment and Plan Intracerebral hemorrhage: Continue Secondary Stroke Prevention (Antithrombotic on hold, Statin (Goal LDL-C <70), BP control (Goal <140/90), GLU control (Goal A1c <7), and lifestyle modification). Monitor for recurrent stroke or post- stroke recrudescence. Continue neuromotor therapy as above. Family training when available. Monitor for post stroke depression, cognitive deficits, seizure, dysphagia, aphasia, shoulder hand syndrome, sensory deficits, spasticity, bowel/bladder def icits, sleep disturbance, vision deficits and DVT. Prognosis for recovery and Secondary Stroke Prevention discussed. Follow up with Neurology. No driving until cleared by Neurologist. Seizure: Maintain seizure precautions, continue Keppra for prophylaxis. Patient will need follow-up with neurologist for consideration of removal of Keppra in several months. Hypertension: Continue medication. Monitor blood pressure. Adjust medications as needed for normotension. Hold for hypotension. Goal SBP <140. Monitor and adjust medications as needed for better pressure control. Left homonymous hemianopsia: Continue therapy to improve the patient's ability to recognize and scan on his left side. Continue to work with the patient on improving his ability to scan and decrease his risk of falls Poor safety awareness: Continue to monitor the patient closely for safety. Bed alarm and wheelchair alarm/seatbelt in use. Nursing requesting sitter as patient continues to get up despite alarms, order. Will need to continue working with the patient to improve his safety awareness. Low-dose Seroquel place for intermittent agitation which the patient was having at [facility] prior to discharge, have changed Seroquel to scheduled. Cognitive dysfunction: Continue working with [employer] to improve patient's cognition and memory . Will need to monitor sleep-wake cycles and may need to start trazodone if the patient is not sleeping well at night. Have discussed with the patient's family that decreased stimulation may be a good thing during the day and not to over stimulate him. ADL dysfunction: OT will work on improving ability to perform ADLs (including assistive devices) to increase independence and decrease caregiver burden and improve functional transfers and mobility training. Difficulty walking: PT will work on gait training and proper use of assistive devices and advance as appropriate to use of stairs and outside ambulation on uneven surfaces. Unsteadiness on feet: PT will work on improving static and dynamic sitting and standing balance as well as proper use of assistive devices to decrease risk of falls. Abnormality of gait: PT will work to improve safety and efficiency of gait through neuromotor training and gait training along with instruction on proper use of assistive devices. Muscle weakness: PT & OT will work on strengthening exercises to improve functional strength including mixture of closed and open kinetic chain exercises. Debility: PT & OT will work on improving overall functional status to improve participation with ADLs, mobility and social involvement. Fatigue: PT & OT will work on improving endurance through aerobic exercises and therapeutic activity while monitoring patients tolerance for activity and vital signs as needed. DVT ppx: Lovenox Pain: Continue physical modalities in therapy and pain medications as needed to achieve functional pain control. Sleep: Monitor and address as needed. Bowel: Monitor and address as needed. Appetite: Monitor and address as needed. Discharge planning: Pending therapy progress and care plan meeting. Will continue discussion with therapy team, SW, patient and family. Will have family meeting this to discuss discharge plans. At this point, if patient does not start making some improvements in carryover and cognition, it would likely be a shorter stay than we initially planned. Have discussed at length as noted above, family will come in for family training to ensure that they are able to provide the care that he he needs. We will also start to move forward with [facility] facility placement. Will likely discharge patient at the end of next week. Restrictions/ Precautions: Falls, seizure, cognition WB status: FWB Functional Hx: ADLs: Independent Cognition: Independent Mobility: No AD Barriers to Discharge: Decreased mobility and ability to perform self care, balance deficits, weakness Estimated Length of Stay: 1418 days Discharge Destination: Home with family versus alternative discharge plans to be discussed on , will need 24/ care if condition does not improve
[2021-03-01] MEDS: levETIRAcetam 500 MG/5 ML ORAL LIQD PO SCH ×2 (16:09→21:04)
[2021-03-01] MEDS: ENOXAPARIN 40 MG/0.4 ML INJ SUB-Q SCH (16:11)
[2021-03-01] MEDS: POTASSIUM CHLORIDE ER 20 MEQ TAB PO SCH (16:11)
[2021-03-01] MEDS: POLYETHYLENE GLYCOL 3350 17 GM POWDER PO SCH (16:14)
[2021-03-01] MEDS: LISINOPRIL 10 MG TAB PO SCH ×2 (16:15→21:03)
[2021-03-01] MEDS: DOXAZOSIN 4 MG TAB PO SCH (16:15)
[2021-03-01] MEDS: amLODIPine 10 MG TAB PO SCH (16:43)
[2021-03-01] MEDS: QUEtiapine 25 MG TAB PO SCH (21:02)
--- NOTE | 2021-03-02 08:22 | Progress Note ---
Subjective Date of service: 03/02/21 Principal diagnosis: CVA Interval history: 76-year-old male who was in [place] when he was noted to have altered mental status and headache. He was taken to nearest ED and had no focal neurologic deficits on presentation. 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 Patient was possibly not compliant with medications per outside hospital reports. Patient later was noted to have epileptiform discharges on EEG and was started on Keppra. Blood pressure was elevated and remains in the 160s to 170s. Home medications were restarted as well as the addition of carvedilol. Patient also experienced agitation and was started on a very low-dose of Seroquel in order to reduce his risk of self injury. Patient has poor safety awareness, somewhat decreased command following at times, and visual impairment on the left. He has been cleared for Lovenox for DVT prophylaxis however has not been restarted on aspirin which he previously took due to the TIA as of yet. Patient also remains on potassium replacement. After the patient was medically stabilized they were transferred for further rehabilitation. All available medical records have been reviewed. Plan of care was discussed with patient and family (, son, daughter are here with the patient this morning). Interval History: Patient is participating in therapy and making slow progress has poor carryover day-to-day and even within the same treatment period. Taking rest breaks as needed. +BM. Denies pain, palpitations, dyspnea, cough, N/V, or joint pain. Patient remains confused. Patient asking several questions this morning which are not pertinent to his care. Finally stated that he was a patient. Intracerebral hemorrhage: Continue secondary stroke prevention. Monitor for any signs of worsening hemorrhage intracranially. Monitor for any signs of neurologic decline, shoulder-hand syndrome, aspiration, bowel bladder deficits, sleep dysfunction. Patient is having difficulty with concentration and cognition, will need to continue to reinforce concept with him from all disciplines including PT, OT, speech and nursing. Patient appears neurologically stable compared to previous exam. Seizure: Continue seizure precautions. Continue Keppra and patient will need to follow-up with neurologist as an outpatient for consideration of discontinuation of Keppra. No seizures so far this admission Hypertension: Blood pressure improved on current medications. Continue to monitor blood pressure and adjust medications as needed. Blood pressure improved since increasing lisinopril to twice daily dosing Left homonymous hemianopsia: Continue therapy and monitor for improvement. Patient will need to learn to scan as much as possible to the weak side in order to avoid obstacles and to pay attention to his environment. Will obtain this during work with therapy sessions performing searches in his environment as well as up and down the hallway. Poor safety awareness: Continue to monitor the patient closely. Bed and chair alarm at use at all times. Have discussed with nursing to try to redirect patient as often as needed. Family has been spending time with the patient and this seems to calm him down as well. Patient slept better overnight and according to the son only attempted to get out of bed one time. We will pancho joceline scheduled Seroquel, sitter when available, and bed/chair alarms. Cognitive dysfunction: Hopefully this will improve with time as the patient has an ICH. We will continue working with speech therapy to improve and have all disciplines reinforce reorientation and monitor for clearing. Insomnia: Patient is awakening during the night and having difficulty going back to sleep her family who are spending the night in the room with him. Seroquel has been scheduled, increase dose if needed. Seems improved on increased dosing All records, vitals, labs and medications were reviewed. No other issues per patient, nursing or therapy. Patient remains a high risk and/or due to diagnosis of intracerebral hemorrhage with possibility of repeat hemorrhage and worsening of neurologic function. Patient has been cleared for Lovenox by hospital prior to transfer to us however aspirin has not been restarted. Patient also has risk of serious bodily harm and/or due to cognitive dysfunction and poor safety awareness leading him to possibility of falls even with use of bed and chair alarms and frequent monitoring by staff. Objective - Exam Narrative Exam: MUSCULOSKELETAL SPECIALTY EXAM CONSTITUTIONAL: Well developed, well nourished, appropriately groomed. RIGHT hand dominant. RESPIRATORY: Clear to auscultation bilaterally, no increased work of breathing CARDIOVASCULAR: Regular Rate/ Rhythm, no swelling, edema or tenderness in BUE or BLE. All extremities warm. GI: + bowel sounds, soft, NTTP, nondistended. INTEGUMENTARY: Normal, no lesion, rash, masses or bruising noted in extremities. MUSCULOSKELETAL: BUE and BLE normal without defect, crepitus, subluxation, effusion, arthritic changes or TTP. R 5 /5 L 4 /5 ROM normal Tone normal NEURO: Attempted to retest visual lubin however patient is having difficulty complying with the test requirements. CN II : Left homonymous hemianopsia CN VII : Slight left facial droop CN IX, X : Palate/uvula elevate midline, phonation softened but not hoarse CN XI : Intact shoulder shrug and decreased head rotation Sensation intact in all extremities with extinction on the left. No tremor noted in 4 extremities. Follows 2 step commands partially. Aphasia not appreciated Dysarthria has improved and patient's voice has also become louder Dysphagia not appreciated Neglect not appreciated, inattention seems present Poor safety awareness with cognitive dysfunction remains unchanged but does have slight instances of brief improvement followed by return to prior POSTURE and GAIT: Sitting posture good. Balance and gait observed with therapy, gait has improved and patient is not having any further loss of balance. PSYCH: Alert, disoriented, affect appears blunted. Insight impaired, speech has circuitous property but then the patient also veers completely away from topic at hand. Brief moments of what appear to be insight into his condition typically dissipate fairly quickly unfortunately. Perseveration noted during conversations - Constitutional Vitals: Vital Signs - 12hr 03/01/21 03/02/21 03/02/21 21:03 05:10 06:46 Temperature 98.7 F 98.9 F Pulse Rate 65 71 Respiratory 18 20 Rate Blood Pressure 130/77 117/78 Blood Pressure 125/72 [Right] O2 Sat by Pulse 100 100 Oximetry - Allied health notes Allied health notes reviewed: nursing, PT, ST, OT FIMS assessment as documented by PT/OT/ST: Grooming Patient cleans teeth/dentures: No Patient bernstein/brushes hair: Yes Patient washes, rinses and Yes dries face: Patient washes, rinses and Yes dries hands: Patient shaves: No Patient performs (no make-up/ 3/4 (75%) shaving): Grooming FIM Score 3. Moderate Assistance (Patient = 50% or more) Toileting Toileting FIM Score 1. Total Assistance (Patient less than 25%. 2 or more persons.) Social interaction/Memory/Problem solving Social Interaction FIM Score 2. Maximal Assistance (Appropriate 25-49% or needs restraint.) Memory FIM Score 3. Moderate Assistance (Recognizes and remembers 50-74%.) Problem Solving FIM Score 2. Maximal Assistance (Solves problems 25-49% or needs restraint.) Transfers Mode of Locomotion: Wheelchair Bed/Chair/Wheelchair Transfers 3. Moderate Assistance (Patient = 50% or more. FIM Score Some lifting.) Toilet Transfers FIM Score 4. Minimal Assistance (Patient = 75% or more. Needs touching.) Patient transferred to: Shower Shower Transfers FIM Score 4. Minimal Assistance (Patient = 75% or more. Needs touching.) Locomotion- walk/wheelchair Ambulation Distance 340 Eating Eating FIM Score 2. Maximal Assistance (Patient = 25% or more) Dressing-Upper body Patient retrieves clothing No items: Patient applies/removes UE No: N/A prosthesis or orthosis: Upper Body Dressing FIM Score 2. Maximal Assistance (Patient = 25% or more) Dressing-lower body Patient retrieves clothing No items: Patient applies/removes LE No: N/A prosthesis or orthosis: Lower Body Dressing FIM Score 2. Maximal Assistance (Patient = 25% or more) - Labs CBC & Chem 7: 02/27/21 14:36 02/27/21 14:36 Labs: Laboratory Results - last 72 hr 02/27/21 02/27/21 14:36 14:36 WBC 10.6 RBC 4.27 Hgb 12.8 Hct 36.0 MCV 84 MCH 30 MCHC 36 H RDW 14.0 Plt Count 266 Sodium 134 L Potassium 3.7 Chloride 99.2 Carbon Dioxide 21 L D Anion Gap 18 BUN 18 Creatinine 0.9 Estimated GFR > 60 BUN/Creatinine Ratio 20 Glucose 100 Calcium 9.3 Assessment and Plan Intracerebral hemorrhage: Continue Secondary Stroke Prevention (Antithrombotic on hold, Statin (Goal LDL-C <70), BP control (Goal <140/90), GLU control (Goal A1c <7), and lifestyle modification). Monitor for recurrent stroke or post- stroke recrudescence. Continue neuromotor therapy as above. Family training when available. Monitor for post stroke depression, cognitive deficits, seizure, dysphagia, aphasia, shoulder hand syndrome, sensory deficits, spasticity, bowel/bladder deficits, sleep disturbance, vision deficits and DVT. Prognosis for recovery and Secondary Stroke Prevention discussed. Follow up with Neurology. No driving until cleared by Neurologist. Seizure: Maintain seizure precautions, continue Keppra for prophylaxis. Patient will need follow-up with neurologist for consideration of removal of Keppra in several months. Hypertension: Continue medication. Monitor blood pressure. Adjust medications as needed for normotension. Hold for hypotension. Goal SBP <140. Monitor and adjust medications as needed for better pressure control. Left homonymous hemianopsia: Continue therapy to improve the patient's ability to recognize and scan on his left side. Continue to work with the patient on improving his ability to scan and decrease his risk of falls Poor safety awareness: Continue to monitor the patient closely for safety. Bed alarm and wheelchair alarm/seatbelt in use. Nursing requesting sitter as patient continues to get up despite alarms, order. Will need to continue working with the patient to improve his safety awareness. Low-dose Seroquel place for intermittent agitation which the patient was having at [facility] prior to discharge, have changed Seroquel to scheduled. Cognitive dysfunction: Continue working with TIERCE FILLER to improve patient's cognition and memory . Will need to monitor sleep-wake cycles and may need to start trazodone if the patient is not sleeping well at night. Have discussed with the patient's family that decreased stimulation may be a good thing during the day and not to over stimulate him. ADL dysfunction: OT will work on improving ability to perform ADLs (including assistive devices) to increase independence and decrease caregiver burden and improve functional transfers and mobility training. Difficulty walking: PT will work on gait training and proper use of assistive devices and advance as appropriate to use of stairs and outside ambulation on uneven surfaces. Unsteadiness on feet: PT will work on improving static and dynamic sitting and standing balance as well as proper use of assistive devices to decrease risk of falls. Abnormality of gait: PT will work to improve safety and efficiency of gait through neuromotor training and gait training along with instruction on proper use of assistive devices. Muscle weakness: PT & OT will work on strengthening exercises to improve functional strength including mixture of closed and open kinetic chain exercises. Debility: PT & OT will work on improving overall functional status to improve participation with ADLs, mobility and social involvement. Fatigue: PT & OT will work on improving endurance through aerobic exercises and therapeutic activity while monitoring patients tolerance for activity and vital signs as needed. DVT ppx: Lovenox Pain: Continue physical modalities in therapy and pain medications as needed to achieve functional pain control. Sleep: Monitor and address as needed. Bowel: Monitor and address as needed. Appetite: Monitor and address as needed. Discharge planning: Pending therapy progress and care plan meeting. Will co ntinue discussion with therapy team, SW, patient and family. Will have family meeting this to discuss discharge plans. At this point, if patient does not start making some improvements in carryover and cognition, it would likely be a shorter stay than we initially planned. Have discussed at length as noted above, family will come in for family training to ensure that they are able to provide the care that he he needs. We will also start to move forward with fdc facility placement. Will discharge patient at the end of next week. Restrictions/ Precautions: Falls, seizure, cognition WB status: FWB Functional Hx: ADLs: Independent Cognition: Independent Mobility: No AD Barriers to Discharge: Decreased mobility and ability to perform self care, balance deficits, weakness Estimated Length of Stay: 1418 days Discharge Destination: Home with family versus alternative discharge plans was discussed on 03/01, will need 31/03 care if condition does not improve
[2021-03-02] MEDS: amLODIPine 10 MG TAB PO SCH (13:00)
[2021-03-02] MEDS: levETIRAcetam 500 MG/5 ML ORAL LIQD PO SCH ×2 (13:28→21:12)
[2021-03-02] MEDS: POLYETHYLENE GLYCOL 3350 17 GM POWDER PO SCH (14:29)
[2021-03-02] MEDS: LISINOPRIL 10 MG TAB PO SCH ×2 (14:30→21:11)
[2021-03-02] MEDS: DOXAZOSIN 4 MG TAB PO SCH (14:54)
[2021-03-02] MEDS: POTASSIUM CHLORIDE ER 20 MEQ TAB PO SCH (15:27)
[2021-03-02] MEDS: ENOXAPARIN 40 MG/0.4 ML INJ SUB-Q SCH (15:27)
[2021-03-02] MEDS: QUEtiapine 25 MG TAB PO SCH (21:00)
[2021-03-03] MEDS: ENOXAPARIN 40 MG/0.4 ML INJ SUB-Q SCH (10:10)
[2021-03-03] MEDS: levETIRAcetam 500 MG/5 ML ORAL LIQD PO SCH ×2 (10:10→22:00)
[2021-03-03] MEDS: POTASSIUM CHLORIDE ER 20 MEQ TAB PO SCH (10:11)
[2021-03-03] MEDS: amLODIPine 10 MG TAB PO SCH (10:12)
[2021-03-03] MEDS: DOXAZOSIN 4 MG TAB PO SCH (10:12)
[2021-03-03] MEDS: LISINOPRIL 10 MG TAB PO SCH ×2 (10:12→22:00)
[2021-03-03] MEDS: POLYETHYLENE GLYCOL 3350 17 GM POWDER PO SCH (10:23)
--- NOTE | 2021-03-03 14:42 | Progress Note ---
Subjective Date of service: 03/03/21 Principal diagnosis: CVA Interval history: 76-year-old male who was in [place] when he was noted to have altered mental status and headache. He was taken to nearest ED and had no focal neurologic deficits on presentation. 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 Patient was possibly not compliant with medications per outside hospital reports. Patient later was noted to have epileptiform discharges on EEG and was started on Keppra. Blood pressure was elevated and remains in the 160s to 170s. Home medications were restarted as well as the addition of carvedilol. Patient also experienced agitation and was started on a very low-dose of Seroquel in order to reduce his risk of self injury. Patient has poor safety awareness, somewhat decreased command following at times, and visual impairment on the left. He has been cleared for Lovenox for DVT prophylaxis however has not been restarted on aspirin which he previously took due to the TIA as of yet. Patient also remains on potassium replacement. After the patient was medically stabilized they were transferred for further rehabilitation. All available medical records have been reviewed. Plan of care was discussed with patient and family (, son, daughter are here with the patient this morning). Interval History: Patient is participating in therapy and making slow progress has poor carryover day-to-day and even within the same treatment period. Taking rest breaks as needed. +BM. Denies pain, palpitations, dyspnea, cough, N/V, or joint pain. Patient remains confused. Discussed with the patient several times in the hallway as well as in his room that we are looking to discharge him next week. Will have family training with his on Friday. Still confused and having problems with carryover. Reinforced he will need 24/ care. Patient's was here overnight with him, she was gone by the time I was able to see him. Intracerebral hemorrhage: Continue secondary stroke prevention. Monitor for any signs of worsening hemorrhage intracranially. Monitor for any signs of neurologic decline, shoulder-hand syndrome, aspiration, bowel bladder deficits, sleep dysfunction. Patient is having difficulty with concentration and cognition, will need to continue to reinforce concept with him from all disciplines including PT, OT, speech and nursing. Patient appears neurologically stable compared to previous exam. Seizure: Continue seizure precautions. Continue Keppra and patient will need to follow-up with neurologist as an outpatient for consideration of discontinuation of Keppra. No seizures so far this admission Hypertension: Blood pressure improved on current medications. Continue to monitor blood pressure and adjust medications as needed. Blood pressure improved since increasing lisinopril to twice daily dosing Left homonymous hemianopsia: Continue therapy and monitor for improvement. Patient will need to learn to scan as much as possible to the weak side in order to avoid obstacles and to pay attention to his environment. Will obtain this during work with therapy sessions performing searches in his environment as well as up and down the hallway. Seems to have improved slightly, but having dif ficulty getting the patient to cooperate with exam to no fully to what extent he has this. Poor safety awareness: Continue to monitor the patient closely. Bed and chair alarm at use at all times. Have discussed with nursing to try to redirect patient as often as needed. Family has been spending time with the patient and this seems to calm him down as well. Patient slept better overnight and a ccording to the son only attempted to get out of bed one time. We will continue scheduled Seroquel, sitter when available, and bed/chair alarms. Cognitive dysfunction: Hopefully this will improve with time as the patient has an ICH. We will continue working with speech therapy to improve and have all disciplines reinforce reorientation and monitor for clearing. Insomnia: Patient is awakening during the night and having difficulty going back to sleep her family who are spending the night in the room with him. Seroquel has been scheduled, increase dose if needed. Seems improved on increased dosing All records, vitals, labs and medications were reviewed. No other issues per patient, nursing or therapy. Patient remains a high risk and/or due to diagnosis of intracerebral hemorrhage with possibility of repeat hemorrhage and worsening of neurologic function. Patient has been cleared for Lovenox by hospital prior to transfer to us however aspirin has not been restarted. Toshia andrade also has risk of serious bodily harm and/or due to cognitive dysfunction and poor safety awareness leading him to possibility of falls even with use of bed and chair alarms and frequent monitoring by staff. Objective - Exam Narrative Exam: MUSCULOSKELETAL SPECIALTY EXAM CONSTITUTIONAL: Well developed, well nourished, appropriately groomed. RIGHT hand dominant. RESPIRATORY: Clear to auscultation bilaterally, no increased work of breathing CARDIOVASCULAR: Regular Rate/ Rhythm, no swelling, edema or tenderness in BUE or BLE. All extremities warm. GI: + bowel sounds, soft, NTTP, nondistended. INTEGUMENTARY: Normal, no lesion, rash, masses or bruising noted in extremities. MUSCULOSKELETAL: BUE and BLE normal without defect, crepitus, subluxation, effusion, arthritic changes or TTP. R 5 /5 L 4 /5 ROM normal Tone normal NEURO: Attempted to retest visual lubin however patient is having difficulty complying with the test requirements. CN II : Left homonymous hemianopsia CN VII : Slight left facial droop CN IX, X : Palate/uvula elevate midline, phonation softened but not hoarse CN XI : Intact shoulder shrug and decreased head rotation Sensation intact in all extremities with extinction on the left. No tremor noted in 4 extremities. Follows 2 step commands partially. Aphasia not appreciated Dysarthria has improved and patient's voice has also become louder Dysphagia not appreciated Neglect not appreciated, inattention seems present Poor safety awareness with cognitive dysfunction remains unchanged but does have slight instances of brief improvement followed by return to prior POSTURE and GAIT: Sitting posture good. Balance and gait observed with therapy, gait has improved and patient is not having any further loss of balance. PSYCH: Alert, disoriented, affect appears blunted. Insight impaired, speech has circuitous property but then the patient also veers completely away from topic at hand. Brief moments of what appear to be insight into his condition typically dissipate fairly quickly unfortunately. Perseveration noted during conversations - Constitutional Vitals: Vital Signs - 12hr 03/03/21 03/03/21 03/03/21 07:34 10:12 12:35 Temperature 97.4 F L 97.8 F Pulse Rate 63 63 73 Respiratory 16 16 Rate Blood Pressure 131/79 131/79 Blood Pressure 110/69 [Right] O2 Sat by Pulse 100 100 Oximetry - Allied health notes Allied health notes reviewed: nursing, PT, ST, OT FIMS assessment as documented by PT/OT/ST: Grooming Patient cleans teeth/dentures: No Patient bernstein/brushes hair: Yes Patient washes, rinses and Yes dries face: Patient washes, rinses and Yes dries hands: Patient shaves: No Patient performs (no make-up/ 3/4 (75%) shaving): Grooming FIM Score 3. Moderate Assistance (Patient = 50% or more) Toileting Toileting FIM Score 1. Total Assistance (Patient less than 25%. 2 or more persons.) Social interaction/Memory/Problem solving Social Interaction FIM Score 2. Maximal Assistance (Appropriate 25-49% or needs restraint.) Memory FIM Score 2. Maximal Assistance (Recognizes and remembers 25-49%.) Problem Solving FIM Score 2. Maximal Assistance (Solves problems 25-49% or needs restraint.) Transfers Mode of Locomotion: Wheelchair Bed/Chair/Wheelchair Transfers 3. Moderate Assistance (Patient = 50% or more. FIM Score Some lifting.) Toilet Transfers FIM Score 4. Minimal Assistance (Patient = 75% or more. Needs touching.) Patient transferred to: Shower Shower Transfers FIM Score 4. Minimal Assistance (Patient = 75% or more. Needs touching.) Locomotion- walk/wheelchair Ambulation Distance 340 Eating Eating FIM Score 2. Maximal Assistance (Patient = 25% or more) Dressing-Upper body Patient retrieves clothing No items: Patient applies/removes UE No: N/A prosthesis or orthosis: Upper Body Dressing FIM Score 2. Maximal Assistance (Patient = 25% or more) Dressing-lower body Patient retrieves clothing No items: Patient applies/removes LE No: N/A prosthesis or orthosis: Lower Body Dressing FIM Score 2. Maximal Assistance (Patient = 25% or more) - Labs CBC & Chem 7: 02/27/21 14:36 02/27/21 14:36 Assessment and Plan Intracerebral hemorrhage: Continue Secondary Stroke Prevention (Antithrombotic on hold, Statin (Goal LDL-C <70), BP control (Goal <140/90), GLU control (Goal A1c <7), and lifestyle modification). Monitor for recurrent stroke or post- stroke recrudescence. Continue neuromotor therapy as above. Family training when available. Monitor for post stroke depression, cognitive deficits, seizure, dysphagia, aphasia, shoulder hand syndrome, sensory deficits, spasticity, bowel/bladder deficits, sleep disturbance, vision deficits and DVT. Prognosis for recovery and Secondary Stroke Prevention discussed. Follow up with Neurology. No driving until cleared by Neurologist. Seizure: Maintain seizure precautions, continue Keppra for prophylaxis. Patient will need follow-up with neurologist for consideration of removal of Keppra in several months. Hypertension: Continue medication. Monitor blood pressure. Adjust medications as needed for normotension. Hold for hypotension. Goal SBP <140. Monitor and adjust medications as needed for better pressure control. Left homonymous hemianopsia: Continue therapy to improve the patient's ability to recognize and scan on his left side. Continue to work with the patient on improving his ability to scan and decrease his risk of falls Poor safety awareness: Continue to monitor the patient closely for safety. Bed alarm and wheelchair alarm/seatbelt in use. Nursing requesting sitter as patient continues to get up despite alarms, order. Will need to continue working with the patient to improve his safety awareness. Low-dose Seroquel place for intermittent agitation which the patient was having at [facility] prior to discharge, have changed Seroquel to scheduled. Cognitive dysfunction: Continue working with BABYSITTER to improve patient's cognition and memory . Will need to monitor sleep-wake cycles and may need to start trazodone if the patient is not sleeping well at night. Have discussed with the patient's family that decreased stimulation may be a good thing during the day and not to over stimulate him. ADL dysfunction: OT will work on improving ability to perform ADLs (including assistive devices) to increase independence and decrease caregiver burden and improve functional transfers and mobility training. Difficulty walking: PT will work on gait training and proper use of assistive devices and advance as appropriate to use of stairs and outside ambulation on uneven surfaces. Unsteadiness on feet: PT will work on improving static and dynamic sitting and standing balance as well as proper use of assistive devices to decrease risk of falls. Abnormality of gait: PT will work to improve safety and efficiency of gait through neuromotor training and gait training along with instruction on proper use of assistive devices. Muscle weakness: PT & OT will work on strengthening exercises to improve functional strength including mixture of closed and open kinetic chain exercises. Debility: PT & OT will work on improving overall functional status to improve participation with ADLs, mobility and social involvement. Fatigue: PT & OT will work on improving endurance through aerobic exercises and therapeutic activity while monitoring patients tolerance for activity and vital signs as needed. DVT ppx: Lovenox Pain: Continue physical modalities in therapy and pain medications as needed to achieve functional pain control. Sleep: Monitor and address as needed. Bowel: Monitor and address as needed. Appetite: Monitor and address as needed. Discharge planning: Pending therapy progress and care plan meeting. Will continue discussion with therapy team, SW, patient and family. Will have family meeting this Thursday to discuss discharge plans. At this point, if patient does not start making some improvements in carryover and cognition, it would likely be a shorter stay than we initially planned. Have discussed at length as noted above, family will come in for family training to ensure that they are able to provide the care that he he needs. We will also start to move forward with intermediate facility placement. Will discharge patient at the end of next week. Restrictions/ Precautions: Falls, seizure, cognition WB status: FWB Functional Hx: ADLs: Independent Cognition: Independent Mobility: No AD Barriers to Discharge: Decreased mobility and ability to perform self care, balance deficits, weakness Estimated Length of Stay: 1418 days Discharge Destination: Home with family versus alternative discharge plans was discussed on 03/01, will need 31/03 care if condition does not improve
[2021-03-03] MEDS: QUEtiapine 25 MG TAB PO SCH (21:00)
[2021-03-04] MEDS: levETIRAcetam 500 MG/5 ML ORAL LIQD PO SCH ×2 (10:32→21:19)
[2021-03-04] MEDS: ENOXAPARIN 40 MG/0.4 ML INJ SUB-Q SCH (10:32)
[2021-03-04] MEDS: POLYETHYLENE GLYCOL 3350 17 GM POWDER PO SCH (10:32)
[2021-03-04] MEDS: POTASSIUM CHLORIDE ER 20 MEQ TAB PO SCH (10:33)
[2021-03-04] MEDS: amLODIPine 10 MG TAB PO SCH (10:33)
[2021-03-04] MEDS: LISINOPRIL 10 MG TAB PO SCH ×2 (10:33→21:20)
[2021-03-04] MEDS: DOXAZOSIN 4 MG TAB PO SCH (10:33)
[2021-03-04] MEDS: QUEtiapine 25 MG TAB PO SCH (21:19)
--- NOTE | 2021-03-05 09:49 | Progress Note ---
Subjective Date of service: 03/05/21 Principal diagnosis: CVA Interval history: 76-year-old male who was in [place] when he was noted to have altered mental status and headache. He was taken to nearest ED and had no focal neurologic deficits on presentation. 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 Patient was possibly not compliant with medications per outside hospital reports. Patient later was noted to have epileptiform discharges on EEG and was started on Keppra. Blood pressure was elevated and remains in the 160s to 170s. Home medications were restarted as well as the addition of carvedilol. Patient also experienced agitation and was started on a very low-dose of Seroquel in order to reduce his risk of self injury. Patient has poor safety awareness, somewhat decreased command following at times, and visual impairment on the left. He has been cleared for Lovenox for DVT prophylaxis however has not been restarted on aspirin which he previously took due to the TIA as of yet. Patient also remains on potassium replacement. After the patient was medically stabilized they were transferred for further rehabilitation. All available medical records have been reviewed. Plan of care was discussed with patient and family (, son, daughter are here with the patient this morning). Interval History: Patient is participating in therapy and making slow progress has poor carryover day-to-day and even within the same treatment period. Taking rest breaks as needed. +BM. Denies pain, palpitations, dyspnea, cough, N/V, or joint pain. Patient remains confused. Patient should undergo family training today with his . From there we will move forward with decision to discharge him either home or shelter facility based on if the feels that she can provide the level of care that he needs to have at home. Intracerebral hemorrhage: Continue secondary stroke prevention. Monitor for any signs of worsening hemorrhage intracranially. Monitor for any signs of neurologic decline, shoulder-hand syndrome, aspiration, bowel bladder deficits, sleep dysfunction. Patient is having difficulty with concentration and cognition, will need to continue to reinforce concept with him from all disciplines including PT, OT, speech and nursing. Patient appears neurologically stable compared to previous exam. Seizure: Continue seizure precautions. Continue Keppra and patient will need to follow-up with neurologist as an outpatient for consideration of discontinuation of Keppra. No seizures so far this admission Hypertension: Blood pressure improved on current medications. Patient has experienced a couple of lower blood pressures throughout his stay. Has been asymptomatic during these times and I am not entirely sure they are correct values. Continue to monitor blood pressure and adjust medications as needed. Blood pressure improved since increasing lisinopril to twice daily dosing Left homonymous hemianopsia: Continue therapy and monitor for improvement. Patient will need to learn to scan as much as possible to the weak side in order to avoid obstacles and to pay attention to his environment. Will obtain this during work with therapy sessions performing searches in his environment as well as up and down the hallway. Seems to have improved slightly, but having difficulty getting the patient to cooperate with exam to no fully to what extent he has this. Poor safety awareness: Continue to monitor the patient closely. Bed and chair alarm at use at all times. Have discussed with nursing to try to redirect patient as often as needed. Family has been spending time with the patient and this seems to calm him down as well. Patient slept better overnight and according to the son only attempted to get out of bed one time. We will continue scheduled Seroquel, sitter when available, and bed/chair alarms. Cognitive dysfunction: Hopefully this will improve with time as the patient has an ICH. We will continue working with speech therapy to improve and have all disciplines reinforce reorientation and monitor for clearing. Insomnia: Patient is awakening during the night and having difficulty going back to sleep her family who are spending the night in the room with him. Seroquel has been scheduled, increase dose if needed. Seems improved on increased dosing All records, vitals, labs and medications were reviewed. No other issues per patient, nursing or therapy. Patient remains a high risk and/or due to diagnosis of intracerebral hemorrhage with possibility of repeat hemorrhage and worsening of neurologic function. Patient has been cleared for Lovenox by hosp [facility] prior to transfer to us however aspirin has not been restarted. Patient also has risk of serious bodily harm and/or due to cognitive dysfunction and poor safety awareness leading him to possibility of falls even with use of bed and chair alarms and frequent monitoring by staff. Objective - Exam Narrative Exam: MUSCULOSKELETAL SPECIALTY EXAM CONSTITUTIONAL: Well developed, well nourished, appropriately groomed. RIGHT hand dominant. RESPIRATORY: Clear to auscultation bilaterally, no increased work of breathing CARDIOVASCULAR: Regular Rate/ Rhythm, no swelling, edema or tenderness in BUE or BLE. All extremities warm. GI: + bowel sounds, soft, NTTP, nondistended. INTEGUMENTARY: Normal, no lesion, rash, masses or bruising noted in extremities. MUSCULOSKELETAL: BUE and BLE normal without defect, crepitus, subluxation, effusion, arthritic changes or TTP. R 5 /5 L 4 /5 ROM normal Tone normal NEURO: Attempted to retest visual lubin however patient is having difficulty complying with the test requirements. CN II : Left homonymous hemianopsia CN VII : Slight left facial droop CN IX, X : Palate/uvula elevate midline, phonation softened but not hoarse CN XI : Intact shoulder shrug and decreased head rotation Sensation intact in all extremities with extinction on the left. No tremor noted in 4 extremities. Follows 2 step commands partially. Aphasia not appreciated Dysarthria has improved and patient's voice has also become louder Dysphagia not appreciated Neglect not appreciated, inattention seems present Poor safety awareness with cognitive dysfunction remains unchanged but does have slight instances of brief improvement followed by return to prior POSTURE and GAIT: Sitting posture good. Balance and gait observed with therapy, gait has improved and patient is not having any further loss of balance. PSYCH: Alert, disoriented, affect appears blunted. Insight impaired, speech has circuitous property but then the patient also veers completely away from topic at hand. Brief moments of what appear to be insight into his condition typical ly dissipate fairly quickly unfortunately. Perseveration noted during conversations - Constitutional Vitals: Vital Signs - 12hr 03/05/21 07:33 Temperature 98.0 F Pulse Rate 92 H Respiratory 18 Rate Blood Pressure 142/85 O2 Sat by Pulse 96 Oximetry - Allied health notes Allied health notes reviewed: nursing, PT, ST, OT FIMS assessment as documented by PT/OT/ST: Grooming Patient cleans teeth/dentures: Yes Patient bernstein/brushes hair: Yes Patient washes, rinses and Yes dries face: Patient washes, rinses and Yes dries hands: Patient shaves: No Patient performs (no make-up/ 4/4 (100%) shaving): Grooming FIM Score 3. Moderate Assistance (Patient = 50% or more) Toileting Toileting FIM Score 3. Moderate Assistance (Patient = 50% or more. Some lifting.) Social interaction/Memory/Problem solving Social Interaction FIM Score 3. Moderate Assistance (Interacts appropriately 50-74%.) Memory FIM Score 3. Moderate Assistance (Recognizes and remembers 50-74%.) Problem Solving FIM Score 3. Moderate Assistance (Solves routine problems 50-74%.) Transfers Mode of Locomotion: Wheelchair Bed/Chair/Wheelchair Transfers 7. Complete Cotton (Walking: Stands. W/C: FIM Score Locks brakes, pivots.) Toilet Transfers FIM Score 4. Minimal Assistance (Patient = 75% or more. Needs touching.) Patient transferred to: Shower Shower Transfers FIM Score 4. Minimal Assistance (Patient = 75% or more. Needs touching.) Locomotion- walk/wheelchair Ambulation Distance 340 Eating Eating FIM Score 5. Supervision/Set-Up (Needs help w/ containers, cutting meat, etc.) Dressing-Upper body Patient retrieves clothing No items: Patient applies/removes UE No: N/A prosthesis or orthosis: Upper Body Dressing FIM Score 3. Moderate Assistance (Patient = 50% or more) Dressing-lower body Patient retrieves clothing No items: Patient applies/removes LE No: N/A prosthesis or orthosis: Lower Body Dressing FIM Score 3. Moderate Assistance (Patient = 50% or more) - Labs CBC & Chem 7: 02/27/21 14:36 02/27/21 14:36 Assessment and Plan Intracerebral hemorrhage: Continue Secondary Stroke Prevention (Antithrombotic on hold, Statin (Goal LDL-C <70), BP control (Goal <140/90), GLU control (Goal A1c <7), and lifestyle modification). Monitor for recurrent stroke or post- stroke recrudescence. Continue neuromotor therapy as above. Family training when available. Monitor for post stroke depression, cognitive deficits, seizure, dysphagia, aphasia, shoulder hand syndrome, sensory deficits, spasticity, bowel/bladder deficits, sleep disturbance, vision deficits and DVT. Prognosis for recovery and Secondary Stroke Prevention discussed. Follow up with Neurology. No driving until cleared by Neurologist. Seizure: Maintain seizure precautions, continue Keppra for prophylaxis. Patient will need follow-up with neurologist for consideration of removal of Keppra in several months. Hypertension: Continue medication. Monitor blood pressure. Adjust medications as needed for normotension. Hold for hypotension. Goal SBP <140. Monitor and adjust medications as needed for better pressure control. Left homonymous hemianopsia: Continue therapy to improve the patient's ability to recognize and scan on his left side. Continue to work with the patient on improving his ability to scan and decrease his risk of falls Poor safety awareness: Continue to monitor the patient closely for safety. Bed alarm and wheelchair alarm/seatbelt in use. Nursing requesting sitter as patient continues to get up despite alarms, order. Will need to continue working with the patient to improve his safety awareness. Low-dose Seroquel place for intermittent agitation which the patient was having at [facility] prior to discharge, have changed Seroquel to scheduled. Cognitive dysfunction: Continue working with FAMILY HELPER to improve patient's cognition and memory . Will need to monitor sleep-wake cycles and may need to start trazodone if the patient is not sleeping well at night. Have discussed with the patient's family that decreased stimulation may be a good thing during the day and not to over stimulate him. ADL dysfunction: OT will work on improving ability to perform ADLs (including assistive devices) to increase independence and decrease caregiver burden and improve functional transfers and mobility training. Difficulty walking: PT will work on gait training and proper use of assistive devices and advance as appropriate to use of stairs and outside ambulation on uneven surfaces. Unsteadiness on feet: PT will work on improving static and dynamic sitting and standing balance as well as proper use of assistive devices to decrease risk of falls. Abnormality of gait: PT will work to improve safety and efficiency of gait through neuromotor training and gait training along with instruction on proper use of assistive devices. Muscle weakness: PT & OT will work on strengthening exercises to improve functional strength including mixture of closed and open kinetic chain exercises. Debility: PT & OT will work on improving overall functional status to improve participation with ADLs, mobility and social involvement. Fatigue: PT & OT will work on improving endurance through aerobic exercises and therapeutic activity while monitoring patients tolerance for activity and vital signs as needed. DVT ppx: Lovenox Pain: Continue physical modalities in therapy and pain medications as needed to achieve functional pain control. Sleep: Monitor and address as needed. Bowel: Monitor and address as needed. Appetite: Monitor and address as needed. Discharge planning: Pending therapy progress and care plan meeting. Will continue discussion with therapy team, SW, patient and family. Will have family meeting this to discuss discharge plans. At this point, if patient does not start making some improvements in carryover and cognition, it would likely be a shorter stay than we initially planned. Have discussed at length as noted above, family will come in for family training to ensure that they are able to provide the care that he he needs. We will also start to move forward with shelter facility placement. Will discharge patient at the end of next week. Restrictions/ Precautions: Falls, seizure, cognition WB status: FWB Functional Hx: ADLs: Independent Cognition: Independent Mobility: No AD Barriers to Discharge: Decreased mobility and ability to perform self care, balance deficits, weakness Estimated Length of Stay: 1418 days Discharge Destination: Home with family versus alternative discharge plans was discussed on 03/01, will need 31/03 care if condition does not improve
[2021-03-05] MEDS: DOXAZOSIN 4 MG TAB PO SCH (10:02)
[2021-03-05] MEDS: POLYETHYLENE GLYCOL 3350 17 GM POWDER PO SCH (10:04)
[2021-03-05] MEDS: amLODIPine 10 MG TAB PO SCH (10:04)
[2021-03-05] MEDS: LISINOPRIL 10 MG TAB PO SCH ×2 (10:04→22:29)
[2021-03-05] MEDS: levETIRAcetam 500 MG/5 ML ORAL LIQD PO SCH ×2 (10:04→22:29)
[2021-03-05] MEDS: POTASSIUM CHLORIDE ER 20 MEQ TAB PO SCH (10:04)
[2021-03-05] MEDS: ENOXAPARIN 40 MG/0.4 ML INJ SUB-Q SCH (10:05)
[2021-03-05] MEDS: QUEtiapine 25 MG TAB PO SCH (22:28)
--- NOTE | 2021-03-06 07:34 | Progress Note ---
Subjective Date of service: 03/06/21 Principal diagnosis: CVA Interval history: 76-year-old male who was in [place] when he was noted to have altered mental status and headache. He was taken to nearest ED and had no focal neurologic deficits on presentation. 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 Patient was possibly not compliant with medications per outside hospital reports. Patient later was noted to have epileptiform discharges on EEG and was started on Keppra. Blood pressure was elevated and remains in the 160s to 170s. Home medications were restarted as well as the addition of carvedilol. Patient also experienced agitation and was started on a very low-dose of Seroquel in order to reduce his risk of self injury. Patient has poor safety awareness, somewhat decreased command following at times, and visual impairment on the left. He has been cleared for Lovenox for DVT prophylaxis however has not been restarted on aspirin which he previously took due to the TIA as of yet. Patient also remains on potassium replacement. After the patient was medically stabilized they were transferred for further rehabilitation. All available medical records have been reviewed. Plan of care was discussed with patient and family (, son, daughter are here with the patient this morning). Interval History: Patient is participating in therapy and making slow progress has poor carryover day-to-day and even within the same treatment period. Taking rest breaks as needed. +BM. Denies pain, palpitations, dyspnea, cough, N/V, or joint pain. Patient remains confused. Hopeful the patient will continue to improve with his cognitive ability however he is not improving quickly enough for us to be able to keep him here and his abilities with PT and OT are too high level. Intracerebral hemorrhage: Continue secondary stroke prevention. Monitor for any signs of worsening hemorrhage intracranially. Monitor for any signs of neurolo gic decline, shoulder-hand syndrome, aspiration, bowel bladder deficits, sleep dysfunction. Patient is having difficulty with concentration and cognition, will need to continue to reinforce concept with him from all disciplines including PT, OT, speech and nursing. Patient appears neurologically stable compared to previous exam. Seizure: Continue seizure precautions. Continue Keppra and patient will need to follow-up with neurologist as an outpatient for consideration of discontinuation of Keppra. No seizures so far this admission Hypertension: Blood pressure improved on current medications. Continue to monitor blood pressure and adjust medications as needed. Blood pressure improved since increasing lisinopril to twice daily dosing Left homonymous hemianopsia: Continue therapy and monitor for improvement. Patient will need to learn to scan as much as possible to the weak side in order to avoid obstacles and to pay attention to his environment. Will obtain this during work with therapy sessions performing searches in his environment as well as up and down the hallway. Seems to have improved slightly, but having difficulty getting the patient to cooperate with exam to no fully to what extent he has this. Poor safety awareness: Continue to monitor the patient closely. Bed and chair alarm at use at all times. Have discussed with nursing to try to redirect patient as often as needed. Family has been spending time with the patient and this seems to calm him down as well. Patient slept better overnight and according to the son only attempted to get out of bed one time. We will continue scheduled Seroquel, sitter when available, and bed/chair alarms. Cognitive dysfunction: Hopefully this will improve with time as the patient has an ICH. We will continue working with speech therapy to improve and have all disciplines reinforce reorientation and monitor for clearing. Insomnia: Patient is awakening during the night and having difficulty going back to sleep her family who are spending the night in the room with him. Seroquel has been scheduled, increase dose if needed. Seems improved on increased dosing All records, vitals, labs and medications were reviewed. No other issues per patient, nursing or therapy. Patient remains a high risk and/or due to diagnosis of intracerebral hemorrhage with possibility of repeat hemorrhage and worsening of neurologic function. Patient has been cleared for Lovenox by hospital prior to transfer to us however aspirin has not been restarted. Patient also has risk of serious bodily harm and/or due to cognitive dysfunction and poor safety awareness leading him to possibility of falls even with use of bed and chair alarms and frequent monitoring by staff. Patient discussed during team conference. Continue to see short term improvements in cognition but then the patient regresses again to his former state. Was able to stay on task with speech therapy for a prolonged period yesterday and was able to attend to homework issues that were given to him by speech therapy. Hopeful for long-term improvement however given his current abilities with physical therapy and occupational therapy we cannot continue to keep him here at this level. Discussed with the today his ability to return home safely and her ability to provide the level of care that he would need and she states that that would not be possible currently. She has identified a couple of [facility] facilities that she would like to transfer him to and we will send out the clinical information for their consideration today. Will look to discharge the patient likely this or Friday pending acceptance. Objective - Exam Narrative Exam: MUSCULOSKELETAL SPECIALTY EXAM CONSTITUTIONAL: Well developed, well nourished, appropriately groomed. RIGHT hand dominant. RESPIRATORY: Clear to auscultation bilaterally, no increased work of breathing CARDIOVASCULAR: Regular Rate/ Rhythm, no swelling, edema or tenderness in BUE or BLE. All ext remities warm. GI: + bowel sounds, soft, NTTP, nondistended. INTEGUMENTARY: Normal, no lesion, rash, masses or bruising noted in extremities. MUSCULOSKELETAL: BUE and BLE normal without defect, crepitus, subluxation, effusion, arthritic changes or TTP. R 5 /5 L 4 /5 ROM normal Tone normal NEURO: Attempted to retest visual lubin however patient is having difficulty complying with the test requirements. CN II : Left homonymous hemianopsia CN VII : Slight left facial droop CN IX, X : Palate/uvula elevate midline, phonation softened but not hoarse Sensation intact in all extremities with extinction on the left. No tremor noted in 4 extremities. Follows 2 step commands partially. Aphasia not appreciated Dysarthria not appreciated Dysphagia not appreciated Neglect not appreciated, inattention seems present but is improving Poor safety awareness with cognitive dysfunction remains unchanged but does have slight instances of brief improvement followed by return to prior POSTURE and GAIT: Sitting posture good. Balance and gait observed with therapy, gait has improved and patient is not having any further loss of balance. PSYCH: Alert, disoriented, affect appears blunted. Insight impaired, speech has circuitous property but then the patient also veers completely away from topic at hand. Brief moments of what appear to be insight into his condition typically dissipate unfortunately. Perseveration noted during conversations. Attention to task seems to be improving slightly with speech therapy - Constitutional Vitals: Vital Signs - 12hr 03/06/21 05:39 Temperature 97.9 F Pulse Rate 107 H Respiratory 18 Rate Blood Pressure 104/62 O2 Sat by Pulse 96 Oximetry - Allied health notes Allied health notes reviewed: nursing, PT, ST, OT FIMS assessment as documented by PT/OT/ST: Grooming Patient cleans teeth/dentures: Yes Patient bernstein/brushes hair: Yes Patient washes, rinses and Yes dries face: Patient washes, rinses and Yes dries hands: Patient shaves: No Patient performs (no make-up/ 12/10 (100%) shaving): Grooming FIM Score 3. Moderate Assistance (Patient = 50% or more) Toileting Toileting FIM Score 3. Moderate Assistance (Patient = 50% or more. Some lifting.) Social interaction/Memory/Problem solving Social Interaction FIM Score 3. Moderate Assistance (Interacts appropriately 50-74%.) Memory FIM Score 3. Moderate Assistance (Recognizes and remembers 50-74%.) Problem Solving FIM Score 3. Moderate Assistance (Solves routine problems 50-74%.) Transfers Mode of Locomotion: Wheelchair Bed/Chair/Wheelchair Transfers 7. Complete [place] (Walking: Stands. W/C: FIM Score Locks brakes, pivots.) Toilet Transfers FIM Score 4. Minimal Assistance (Patient = 75% or more. Needs touching.) Patient transferred to: Shower Shower Transfers FIM Score 4. Minimal Assistance (Patient = 75% or more. Needs touching.) Locomotion- walk/wheelchair Ambulation Distance 340 Eating Eating FIM Score 5. Supervision/Set-Up (Needs help w/ containers, cutting meat, etc.) Dressing-Upper body Patient retrieves clothing No items: Patient applies/removes UE No: N/A prosthesis or orthosis: Upper Body Dressing FIM Score 3. Moderate Assistance (Patient = 50% or more) Dressing-lower body Patient retrieves clothing No items: Patient applies/removes LE No: N/A prosthesis or orthosis: Lower Body Dressing FIM Score 3. Moderate Assistance (Patient = 50% or more) - Labs CBC & Chem 7: 02/27/21 14:36 02/27/21 14:36 Assessment and Plan Intracerebral hemorrhage: Continue Secondary Stroke Prevention (Antithrombotic on hold, Statin (Goal LDL-C <70), BP control (Goal <140/90), GLU control (Goal A1c <7), and lifestyle modification). Monitor for recurrent stroke or post- stroke recrudescence. Continue neuromotor therapy as above. Family training when available. Monitor for post stroke depression, cognitive deficits, seizure, dysphagia, aphasia, shoulder hand syndrome, sensory deficits, spasticity, bowel/bladder deficits, sleep disturbance, vision deficits and DVT. Prognosis for recovery and Secondary Stroke Prevention discussed. Follow up with Neurology. No driving until cleared by Neurologist. Seizure: Maintain seizure precautions, continue Keppra for prophylaxis. Patient will need follow-up with neurologist for consideration of removal of Keppra in several months. Hypertension: Continue medication. Monitor blood pressure. Adjust medications as needed for normotension. Hold for hypotension. Goal SBP <140. Monitor and adjust medications as needed for better pressure control. Left homonymous hemianopsia: Continue therapy to improve the patient's ability to recognize and scan on his left side. Continue to work with the patient on improving his ability to scan and decrease his risk of falls Poor safety awareness: Continue to monitor the patient closely for safety. Bed alarm and wheelchair alarm/seatbelt in use. Nursing requesting sitter as patient continues to get up despite alarms, order. Will need to continue working with the patient to improve his safety awareness. Low-dose Seroquel place for intermittent agitation which the patient was having at [facility] prior to discharge, have changed Seroquel to scheduled. Cognitive dysfunction: Continue working with [employer] to improve patient's cognition and memory . Will need to monitor sleep-wake cycles and may need to start trazodone if the patient is not sleeping well at night. Have discussed with the patient's family that decreased stimulation may be a good thing during the day and not to over stimulate him. ADL dysfunction: OT will work on improving ability to perform ADLs (including assistive devices) to increase independence and decrease caregiver burden and improve functional transfers and mobility training. Difficulty walking: PT will work on gait training and proper use of assistive devices and advance as appropriate to use of stairs and outside ambulation on uneven surfaces. Unsteadiness on feet: PT will work on improving static and dynamic sitting and standing balance as well as proper use of assistive devices to decrease risk of falls. Abnormality of gait: PT will work to improve safety and efficiency of gait through neuromotor training and gait training along with instruction on proper use of assistive devices. Muscle weakness: PT & OT will work on strengthening exercises to improve functional strength including mixture of closed and open kinetic chain exercises. Debility: PT & OT will work on improving overall functional status to improve participation with ADLs, mobility and social involvement. Fatigue: PT & OT will work on improving endurance through aerobic exercises and therapeutic activity while monitoring patients tolerance for activity and vital signs as needed. DVT ppx: Lovenox Pain: Continue physical modalities in therapy and pain medications as needed to achieve functional pain control. Sleep: Monitor and address as needed. Bowel: Monitor and address as needed. Appetite: Monitor and address as needed. Discharge planning: Pending therapy progress and care plan meeting. Will continue discussion with therapy team, SW, patient and family. After speaking with the , patient will need to go to a [facility] facility for further therapy and hopeful clearing of his cognitive deficits. Will look to discharge the patient on , sending out clinical information today. Restrictions/ Precautions: Falls, seizure, cognition WB status: FWB Functional Hx: ADLs: Independent Cognition: Independent Mobility: No AD Barriers to Discharge: Decreased mobility and ability to perform self care, balance deficits, weakness Estimated Length of Stay: 1418 days Discharge Destination: assisted facility with hopeful return to home after the patient's cognition improves
[2021-03-06] MEDS: POLYETHYLENE GLYCOL 3350 17 GM POWDER PO SCH (10:17)
[2021-03-06] MEDS: ENOXAPARIN 40 MG/0.4 ML INJ SUB-Q SCH (10:18)
[2021-03-06] MEDS: amLODIPine 10 MG TAB PO SCH (10:18)
[2021-03-06] MEDS: DOXAZOSIN 4 MG TAB PO SCH (10:18)
[2021-03-06] MEDS: POTASSIUM CHLORIDE ER 20 MEQ TAB PO SCH (10:19)
[2021-03-06] MEDS: levETIRAcetam 500 MG/5 ML ORAL LIQD PO SCH ×2 (10:19→22:30)
[2021-03-06] MEDS: LISINOPRIL 10 MG TAB PO SCH ×2 (11:32→22:31)
[2021-03-06] MEDS: QUEtiapine 25 MG TAB PO SCH (22:32)
[2021-03-07] MEDS: POLYETHYLENE GLYCOL 3350 17 GM POWDER PO SCH (09:08)
[2021-03-07] MEDS: levETIRAcetam 500 MG/5 ML ORAL LIQD PO SCH ×2 (09:08→21:51)
[2021-03-07] MEDS: POTASSIUM CHLORIDE ER 20 MEQ TAB PO SCH (09:08)
[2021-03-07] MEDS: ENOXAPARIN 40 MG/0.4 ML INJ SUB-Q SCH (09:08)
[2021-03-07] MEDS: amLODIPine 10 MG TAB PO SCH (09:09)
[2021-03-07] MEDS: LISINOPRIL 10 MG TAB PO SCH ×2 (09:10→21:52)
[2021-03-07] MEDS: DOXAZOSIN 4 MG TAB PO SCH (09:15)
[2021-03-07 10:22] LABS: Hematocrit 33.8 % (35.5-45.6); Hemoglobin 12.1 gm/dl (11.8-15.2); Mean Corpuscular HGB Conc 36 % (32-34); Mean Corpuscular Volume 87 fl (84-94); Platelet Count 201 K/mm3 (140-440); Red Cell Distribution Width 14.4 % (13.2-15.2)
[2021-03-07 10:57] LABS: BUN/Creatinine Ratio 19; Blood Urea Nitrogen 21 mg/dL (9-20); Calcium 9.9 mg/dL (8.4-10.2); Hemolysis Index 2
--- NOTE | 2021-03-07 14:07 | Progress Note ---
Subjective Date of service: 03/07/21 Principal diagnosis: CVA Interval history: 76-year-old male who was in [place] when he was noted to have altered mental status and headache. He was taken to nearest ED and had no focal neurologic deficits on presentation. 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 Patient was possibly not compliant with medications per outside hospital reports. Patient later was noted to have epileptiform discharges on EEG and was started on Keppra. Blood pressure was elevated and remains in the 160s to 170s. Home medications were restarted as well as the addition of carvedilol. Patient also experienced agitation and was started on a very low-dose of Seroquel in order to reduce his risk of self injury. Patient has poor safety awareness, somewhat decreased command following at times, and visual impairment on the left. He has been cleared for Lovenox for DVT prophylaxis however has not been restarted on aspirin which he previously took due to the TIA as of yet. Patient also remains on potassium replacement. After the patient was medically stabilized they were transferred for further rehabilitation. All available medical records have been reviewed. Plan of care was discussed with patient and family (, son, daughter are here with the patient this morning). Interval History: Patient is participating in therapy and making slow progress has poor carryover day-to-day and even within the same treatment period. Taking rest breaks as needed. +BM. Denies pain, palpitations, dyspnea, cough, N/V, or joint pain. Patient remains confused but does seem to be improving. Hopeful the patient will continue to improve with his cognitive ability however he is not improving quickly enough for us to be able to keep him here and his abilities with PT and OT are too high level. Discussed plan of care with his and discussed discharge to a subacute rehab with the patient. In total, greater than 35 husam edita was invested in patient care today with greater than half that time being used for counseling and coordinating care. Intracerebral hemorrhage: Continue secondary stroke prevention. Monitor for any signs of worsening hemorrhage intracranially. Monitor for any signs of neurologic decline, shoulder-hand syndrome, aspiration, bowel bladder deficits, sleep dysfunction. Patient is having difficulty with concentration and cognition, will need to continue to reinforce concept with him from all d isciplines including PT, OT, speech and nursing. Patient appears neurologically stable compared to previous exam. Seizure: Continue seizure precautions. Continue Keppra and patient will need to follow-up with neurologist as an outpatient for consideration of discontinuation of Keppra. No seizures so far this admission Hypertension: Blood pressure improved on current medications. Continue to monitor blood pressure and adjust medications as needed. Blood pressure improved since increasing lisinopril to twice daily dosing Left homonymous hemianopsia: Continue therapy and monitor for improvement. Patient will need to learn to scan as much as possible to the weak side in order to avoid obstacles and to pay attention to his environment. Will obtain this during work with therapy sessions performing searches in his environment as well as up and down the hallway. Seems to have improved slightly, but having difficulty getting the patient to cooperate with exam to no fully to what extent he has this. Poor safety awareness: Continue to monitor the patient closely. Bed and chair alarm not being used. Have discussed with nursing to try to redirect patient as often as needed. We will continue scheduled Seroquel. Cognitive dysfunction: Hopefully this will improve with time as the patient has an ICH. We will continue working with speech therapy to improve and have all disciplines reinforce reorientation and monitor for clearing. Patient does seem to be improving over the last week. Still does not seem to be at the level that he would need to be for the to be able to provide care for him and would benefit from subacute rehab. Discussed with the family as well as the patient that a subacute rehab stay would be temporary and hopefully give him time to continue healing in order for him to return home in a few weeks. Insomnia: Seroquel has been scheduled, increase dose if needed. Seems improved on increased dosing All records, vitals, labs and medications were reviewed. No other issues per patient, nursing or therapy. Patient remains a high risk and/or due to diagnosis of intracerebral hemorrhage with possibility of repeat hemorrhage and worsening of neurologic function. Patient has been cleared for Lovenox by hospital prior to transfer to us however aspirin has not been restarted. Patient also has risk of serious bodily harm and/or due to cognitive dysfunction and poor safety awareness leading him to possibility of falls Objective - Exam Narrative Exam: MUSCULOSKELETAL SPECIALTY EXAM CONSTITUTIONAL: Well developed, well nourished, appropriately groomed. RIGHT hand dominant. RESPIRATORY: Clear to auscultation bilaterally, no increased work of breathing CARDIOVASCULAR: Regular Rate/ Rhythm, no swelling, edema or tenderness in BUE or BLE. All extr emities warm. GI: + bowel sounds, soft, NTTP, nondistended. INTEGUMENTARY: Normal, no lesion, rash, masses or bruising noted in extremities. MUSCULOSKELETAL: BUE and BLE normal without defect, crepitus, subluxation, effusion, arthritic changes or TTP. R 5 /5 L 4 /5 ROM normal Tone normal NEURO: CN II : Left homonymous hemianopsia CN VII : Slight left facial droop CN IX, X : Palate/uvula elevate midline, phonation softened but not hoarse Sensation intact in all extremities with extinction on the left. No tremor noted in 4 extremities. Follows 2 step commands Aphasia not appreciated Dysarthria not appreciated Dysphagia not appreciated Neglect not appreciated, inattention seems present but is improving Poor safety awareness with cognitive dysfunction remains unchanged but does have slight instances of brief improvement followed by return to prior POSTURE and GAIT: Sitting posture good. Balance and gait observed with therapy, gait has improved and patient is not having any further loss of balance. PSYCH: Alert, disoriented, affect appears blunted. Insight impaired, speech has circuitous property but then the patient also veers completely away from topic at hand. Brief moments of what appear to be insight into his condition typic ally dissipate unfortunately. Perseveration noted during conversations. Attention to task seems to be improving slightly with speech therapy - Constitutional Vitals: Vital Signs - 12hr 03/07/21 03/07/21 06:57 11:25 Temperature 98.9 F 98.0 F Pulse Rate 66 94 H Respiratory 16 18 Rate Blood Pressure 125/85 129/70 O2 Sat by Pulse 99 97 Oximetry - Allied health notes Allied health notes reviewed: nursing, PT, ST, OT FIMS assessment as documented by PT/OT/ST: Grooming Patient cleans teeth/dentures: Yes Patient bernstein/brushes hair: Yes Patient washes, rinses and Yes dries face: Patient washes, rinses and Yes dries hands: Patient shaves: No Patient performs (no make-up/ 4/4 (100%) shaving): Grooming FIM Score 5. Supervision (Charlotte applies toothpaste or opens containers.) Toileting Toileting Device Commode over Toilet Patient able to: Adjust clothes before,Clean self,Adjust clothes after Patient able to perform: 3/3 (100%) Toileting FIM Score 5. Supv./Set-Up (Needs stand-by, set-up, applying prosth/orth.) Social interaction/Memory/Problem solving Social Interaction FIM Score 3. Moderate Assistance (Interacts appropriately 50-74%.) Memory FIM Score 3. Moderate Assistance (Recognizes and remembers 50-74%.) Problem Solving FIM Score 3. Moderate Assistance (Solves routine problems 50-74%.) Transfers Mode of Locomotion: Wheelchair Bed/Chair/Wheelchair Transfers 5. Supervision (Needs supv. or set-up for FIM Score sliding board, foot rests.) Toilet Transfers FIM Score 5. Supervision (Needs supervision or cueing.) Patient transferred to: Shower Shower Transfers FIM Score 5. Supervision (Needs supv. or set-up with device.) Locomotion- walk/wheelchair Ambulation Distance 340 Eating Eating FIM Score 5. Supervision/Set-Up (Needs help w/ containers, cutting meat, etc.) Dressing-Upper body Patient retrieves clothing Yes items: Patient applies/removes UE No: N/A prosthesis or orthosis: Upper Body Dressing FIM Score 5. Supv./Set-Up (Charlotte sets out clothes or applies pros./orth.) Dressing-lower body Patient retrieves clothing Yes items: Patient applies/removes LE No: N/A prosthesis or orthosis: Lower Body Dressing FIM Score 5. Supv./Set-Up (Charlotte sets out clothes or applies pros./orth.) - Labs CBC & Chem 7: 03/07/21 09:03 03/07/21 09:03 Labs: Laboratory Results - last 72 hr 03/07/21 03/07/21 09:03 09:03 WBC 6.5 RBC 3.90 Hgb 12.1 Hct 33.8 L MCV 87 MCH 31 MCHC 36 H RDW 14.4 Plt Count 201 Sodium 141 Potassium 4.5 Chloride 104.8 Carbon Dioxide 21 L Anion Gap 20 BUN 21 H Creatinine 1.1 Estimated GFR > 60 BUN/Creatinine Ratio 19 Glucose 140 H Calcium 9.9 Assessment and Plan Intracerebral hemorrhage: Continue Secondary Stroke Prevention (Antithrombotic on hold, Statin (Goal LDL-C <70), BP control (Goal <140/90), GLU control (Goal A1c <7), and lifestyle modification). Monitor for recurrent stroke or post- stroke recrudescence. Continue neuromotor therapy as above. Family training when available. Monitor for post stroke depression, cognitive deficits, seizure, dysphagia, aphasia, shoulder hand syndrome, sensory deficits, spasticity, bowel/bladder deficits, sleep disturbance, vision deficits and DVT. Prognosis for recovery and Secondary Stroke Prevention discussed. Follow up with Neurology. No driving until cleared by Neurologist. Seizure: Maintain seizure precautions, continue Keppra for prophylaxis. Patient will need follow-up with neurologist for consideration of removal of Keppra in several months. Hypertension: Continue medication. Monitor blood pressure. Adjust medications as needed for normotension. Hold for hypotension. Goal SBP <140. Monitor and adjust medications as needed for better pressure control. Left homonymous hemianopsia: Continue therapy to improve the patient's ability to recognize and scan on his left side. Continue to work with the patient on improving his ability to scan and decrease his risk of falls Poor safety awareness: Continue to monitor the patient closely for safety. Bed alarm and wheelchair alarm/seatbelt in use. Will need to continue working with the patient to improve his safety awareness. Low-dose Seroquel place for intermittent agitation which the patient was having at [facility] prior to discharge, have changed Seroquel to scheduled to improve sleepwe will stop this and start trazodone. Patient is not having agitation here and has not since he has been here. Is typically easy to redirect. Cognitive dysfunction: Continue working with [employer]LEB[employer] ASSOCI[employer] to improve patient's cognition and memory . Will need to monitor sleep-wake cycles and may need to start trazodone if the patient is not sleeping well at night. ADL dysfunction: OT will work on improving ability to perform ADLs (including assistive devices) to increase independence and decrease caregiver burden and improve functional transfers and mobility training. Difficulty walking: PT will work on gait training and proper use of assistive devices and advance as appropriate to use of stairs and outside ambulation on uneven surfaces. Unsteadiness on feet: PT will work on improving static and dynamic sitting and standing balance as well as proper use of assistive devices to decrease risk of falls. Abnormality of gait: PT will work to improve safety and efficiency of gait through neuromotor training and gait training along with instruction on proper use of assistive devices. Muscle weakness: PT & OT will work on strengthening exercises to improve functional strength including mixture of closed and open kinetic chain exercises. Debility: PT & OT will work on improving overall functional status to improve participation with ADLs, mobility and social involvement. Fatigue: PT & OT will work on improving endurance through aerobic exercises and therapeutic activity while monitoring patients tolerance for activity and vital signs as needed. DVT ppx: Lovenox Pain: Continue physical modalities in therapy and pain medications as needed to achieve functional pain control. Sleep: Monitor and address as needed. Bowel: Monitor and address as needed. Appetite: Monitor and address as needed. Discharge planning: Pending therapy progress and care plan meeting. Will continue discussion with therapy team, SW, patient and family. After speaking with the , patient will need to go to a shelter facility for further therapy and hopeful clearing of his cognitive deficits. Will look to discharge the patient on , sending out clinical information today. Restrictions/ Precautions: Falls, seizure, cognition WB status: FWB Functional Hx: ADLs: Independent Cognition: Independent Mobility: No AD Barriers to Discharge: Decreased mobility and ability to perform self care, balance deficits, weakness Estimated Length of Stay: 1418 days Discharge Destination: intermediate facility with hopeful return to home after the patient's cognition improves
[2021-03-07] MEDS: QUEtiapine 25 MG TAB PO SCH (21:00)
[2021-03-08] MEDS: amLODIPine 10 MG TAB PO SCH (09:11)
[2021-03-08] MEDS: POTASSIUM CHLORIDE ER 20 MEQ TAB PO SCH (09:11)
[2021-03-08] MEDS: POLYETHYLENE GLYCOL 3350 17 GM POWDER PO SCH (09:12)
[2021-03-08] MEDS: ENOXAPARIN 40 MG/0.4 ML INJ SUB-Q SCH (09:12)
[2021-03-08] MEDS: LISINOPRIL 10 MG TAB PO SCH ×2 (09:12→22:12)
[2021-03-08] MEDS: levETIRAcetam 500 MG/5 ML ORAL LIQD PO SCH ×2 (09:12→22:12)
[2021-03-08] MEDS: DOXAZOSIN 4 MG TAB PO SCH (09:13)
--- NOTE | 2021-03-08 14:55 | Progress Note ---
Subjective Date of service: 03/08/21 Principal diagnosis: CVA Interval history: 76-year-old male who was in [place] when he was noted to have altered mental status and headache. He was taken to nearest ED and had no focal neurologic deficits on presentation. 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 Patient was possibly not compliant with medications per outside hospital reports. Patient later was noted to have epileptiform discharges on EEG and was started on Keppra. Blood pressure was elevated and remains in the 160s to 170s. Home medications were restarted as well as the addition of carvedilol. Patient also experienced agitation and was started on a very low-dose of Seroquel in order to reduce his risk of self injury. Patient has poor safety awareness, somewhat decreased command following at times, and visual impairment on the left. He has been cleared for Lovenox for DVT prophylaxis however has not been restarted on aspirin which he previously took due to the TIA as of yet. Patient also remains on potassium replacement. After the patient was medically stabilized they were transferred for further rehabilitation. All available medical records have been reviewed. Plan of care was discussed with patient and family (, son, daughter are here with the patient this morning). Interval History: Patient is participating in therapy and making slow progress has poor carryover day-to-day and even within the same treatment period. Taking rest breaks as needed. +BM. Denies pain, palpitations, dyspnea, cough, N/V, or joint pain. Patient remains confused but does seem to be improving. Hopeful the patient will continue to improve with his cognitive ability however he is not improving quickly enough for us to be able to keep him here and his abilities with PT and OT are too high level. Contacted the long-term facility that is the patient's 's first choice today. They had concern about the patient needing Seroquel for agitation. I explained to him that the agitation was seen at the outside hospital ([facility]) and that he has not expressed had any issues with agitation while being here. Since the Seroquel was working well for him for sleep, we continued using it here. Initially the patient was having significant issues with day night rhythm and the Seroquel assisted him with improved functioning. We have discontinued the Seroquel today and will start trazodone which is my preferred medication for sleep. Patient is showing good progress with cognition however still is not where he needs to be in order to safely be able to go home. Would absolutely benefit from a short-term stay in a subacute rehab to continue working on cognition and to continue being monitored and having skilled care over the next couple of weeks as he continues to improve. Would expect that he would likely be able to go home within 20 to 30 days if his rate of improvement continues. Intracerebral hemorrhage: Continue secondary stroke prevention. Monitor for any signs of worsening hemorrhage intracranially. Monitor for any signs of neurologic decline, shoulder-hand syndrome, aspiration, bowel bladder deficits, sleep dysfunction. Patient is improving with concentration and cognition, will need to continue to reinforce concept with him from all disciplines including PT, OT, speech and nursing. Patient appears neurologically stable compared to previous exam. Seizure: Continue seizure precautions. Continue Keppra and patient will need to follow-up with neurologist as an outpatient for consideration of discontinuation of Keppra. No seizures so far this admission Hypertension: Blood pressure improved on current medications. Continue to monitor blood pressure and adjust medications as needed. Blood pressure improved since increasing lisinopril to twice daily dosing, stable currently Left homonymous hemianopsia: Continue therapy and monitor for improvement. Patient will need to learn to scan as much as possible to the weak side in order to avoid obstacles and to pay attention to his environment, this seems improved. Poor safety awareness: Continue to monitor the patient closely. Bed and chair alarm not being used currently. Have discussed with nursing to try to redirect patient as often as needed. Cognitive dysfunction: Has been improving over the last week. We will continue working with speech therapy to improve and have all disciplines reinforce reorientation and monitor for clearing. Still does not seem to be at the level that he would need to be for the to be able to provide care for him and would benefit from subacute rehab. Discussed with the family as well as the patient that a subacute rehab stay would be temporary and hopefully give him time to continue healing in order for him to return home in a few weeks. Insomnia: Patient was on Seroquel from the outside hospital. Seems to be sleeping much better and has not had anyone spending the night with him lately. Will discontinue Seroquel and start trazodone and adjust for effect. All records, vitals, labs and medications were reviewed. No other issues per patient, nursing or therapy. Patient remains a high risk and/or due to diagnosis of intracerebral hemorrhage with possibility of repeat hemorrhage and worsening of neurologic function. Patient has been cleared for Lovenox by missy rolle prior to transfer to us however aspirin has not been restarted. Patient also has risk of serious bodily harm and/or due to cognitive dysfunction and poor safety awareness leading him to possibility of falls, however the patient has not had any falls currently and his balance seems much improved than when he first admitted. Objective - Exam Narrative Exam: MUSCULOSKELETAL SPECIALTY EXAM CONSTITUTIONAL: Well developed, well nourished, appropriately groomed. RIGHT hand dominant. RESPIRATORY: Clear to auscultation bilaterally, no increased work of breathing CARDIOVASCULAR: Regular Rate/ Rhythm, no swelling, edema or tenderness in BUE or BLE. All extremities warm. GI: + bowel sounds, soft, NTTP, nondistended. INTEGUMENTARY: Normal, no lesion, rash, masses or bruising noted in extremities. MUSCULOSKELETAL: BUE and BLE normal without defect, crepitus, subluxation, effusion, arthritic changes or TTP. R 5 /5 L 4 /5 ROM normal Tone normal NEURO: CN II : Left homonymous hemianopsia, seems improved CN VII : Slight left facial droop CN IX, X : Palate/uvula elevate midline, phonation improve Sensation intact in all extremities with extinction on the left. No tremor noted in 4 extremities. Follows 2 step commands Aphasia not appreciated Dysarthria not appreciated Dysphagia not appreciated Neglect not appreciated, inattention seems present but is improving Safety awareness improving slightly, cognitive dysfunction also improving and patient is able to attend to therapy task much better than he was previously. Was able to concentrate with speech therapy for greater than 45 minutes on task POSTURE and GAIT: Sitting posture good. Balance and gait observed with therapy, gait has improved and patient is not having any further loss of balance. PSYCH: Alert, disoriented, affect appears blunted. Insight impaired, speech has circuitous property but then the patient also veers completely away from topic at hand. Brief moments of what appear to be insight into his condition typically dissipate unfortunately. Perseveration noted during conversations but has improved over the last couple of days. Attention to task seems to be improving with speech therapy - Constitutional Vitals: Vital Signs - 12hr 03/08/21 03/08/21 03/08/21 07:22 09:11 09:12 Temperature 97.5 F L Pulse Rate 61 61 61 Respiratory 16 Rate Blood Pressure 117/71 117/71 117/71 O2 Sat by Pulse 100 Oximetry 03/08/21 09:13 Temperature Pulse Rate 61 Respiratory Rate Blood Pressure 117/71 O2 Sat by Pulse Oximetry - Allied health notes Allied health notes reviewed: nursing, PT, ST, OT FIMS assessment as documented by PT/OT/ST: Grooming Patient cleans teeth/dentures: Yes Patient bernstein/brushes hair: Yes Patient washes, rinses and Yes dries face: Patient washes, rinses and Yes dries hands: Patient shaves: No Patient performs (no make-up/ 12/10 (100%) shaving): Grooming FIM Score 5. Supervision (Millis applies toothpaste or opens containers.) Toileting Toileting Device Commode over Toilet Patient able to: Adjust clothes before,Clean self,Adjust clothes after Patient able to perform: 3/3 (100%) Toileting FIM Score 5. Supv./Set-Up (Needs stand-by, set-up, applying prosth/orth.) Social interaction/Memory/Problem solving Social Interaction FIM Score 3. Moderate Assistance (Interacts appropriately 50-74%.) Memory FIM Score 3. Moderate Assistance (Recognizes and remembers 50-74%.) Problem Solving FIM Score 3. Moderate Assistance (Solves routine problems 50-74%.) Transfers Mode of Locomotion: Wheelchair Bed/Chair/Wheelchair Transfers 5. Supervision (Needs supv. or set-up for FIM Score sliding board, foot rests.) Toilet Transfers FIM Score 5. Supervision (Needs supervision or cueing.) Patient transferred to: Shower Shower Transfers FIM Score 5. Supervision (Needs supv. or set-up with device.) Locomotion- walk/wheelchair Ambulation Distance 340 Eating Eating FIM Score 5. Supervision/Set-Up (Needs help w/ containers, cutting meat, etc.) Dressing-Upper body Patient retrieves clothing Yes items: Patient applies/removes UE No: N/A prosthesis or orthosis: Upper Body Dressing FIM Score 5. Supv./Set-Up (Millis sets out clothes or applies pros./orth.) Dressing-lower body Patient retrieves clothing Yes items: Patient applies/removes LE No: N/A prosthesis or orthosis: Lower Body Dressing FIM Score 5. Supv./Set-Up (Millis sets out clothes or applies pros./orth.) - Labs CBC & Chem 7: 03/07/21 09:03 03/07/21 09:03 Labs: Laboratory Results - last 72 hr 03/07/21 03/07/21 09:03 09:03 WBC 6.5 RBC 3.90 Hgb 12.1 Hct 33.8 L MCV 87 MCH 31 MCHC 36 H RDW 14.4 Plt Count 201 Sodium 141 Potassium 4.5 Chloride 104.8 Carbon Dioxide 21 L Anion Gap 20 BUN 21 H Creatinine 1.1 Estimated GFR > 60 BUN/Creatinine Ratio 19 Glucose 140 H Calcium 9.9 Assessment and Plan Intracerebral hemorrhage: Continue Secondary Stroke Prevention (Antithrombotic on hold, Statin (Goal LDL-C <70), BP control (Goal <140/90), GLU control (Goal A1c <7), and lifestyle modification). Monitor for recurrent stroke or post- stroke recrudescence. Continue neuromotor therapy as above. Family training when available. Monitor for post stroke depression, cognitive deficits, seizure, dysphagia, aphasia, shoulder hand syndrome, sensory deficits, spasticity, bowel/bladder deficits, sleep disturbance, vision deficits and DVT. Prognosis for recovery and Secondary Stroke Prevention discussed. Follow up with Neurology. No driving until cleared by Neurologist. Seizure: Maintain seizure precautions, continue Keppra for prophylaxis. Patient will need follow-up with neurologist for consideration of removal of Keppra in several months. Hypertension: Continue medication. Monitor blood pressure. Adjust medications as needed for normotension. Hold for hypotension. Goal SBP <140. Monitor and adjust medications as needed for better pressure control. Left homonymous hemianopsia: Continue therapy to improve the patient's ability to recognize and scan on his left side. Continue to work with the patient Poor safety awareness: Continue to monitor the patient closely for safety. Will need to continue working with the patient to improve his safety awareness. Low-dose Seroquel was in place at [facility] for intermittent agitation which the patient was having at [facility] prior to discharge, we have changed Seroquel to scheduled to improve sleepwe will stop this and start trazodone. Patient is not having agitation here and has not since he has been here. He is typically easy to redirect. Cognitive dysfunction: Continue working with EGG BREAKING MACHINE OPERATOR to improve patient's cognition and memory . Insomnia: Likely having some effect on the patient's cognition early on. Sleep has improved and sleep-wake cycles have normalized. Patient no longer getting out of bed in the middle of the night. Have stopped Seroquel and started trazodone. ADL dysfunction: OT will work on improving ability to perform ADLs (including assistive devices) to increase independence and decrease caregiver burden and improve functional transfers and mobility training. Difficulty walking: PT will work on gait training and proper use of assistive devices and advance as appropriate to use of stairs and outside ambulation on uneven surfaces. Unsteadiness on feet: PT will work on improving static and dynamic sitting and standing balance as well as proper use of assistive devices to decrease risk of falls. Abnormality of gait: PT will work to improve safety and efficiency of gait through neuromotor training and gait training along with instruction on proper use of assistive devices. Muscle weakness: PT & OT will work on strengthening exercises to improve functional strength including mixture of closed and open kinetic chain exercises. Debility: PT & OT will work on improving overall functional status to improve participation with ADLs, mobility and social involvement. Fatigue: PT & OT will work on improving endurance through aerobic exercises and therapeutic activity while monitoring patients tolerance for activity and vital signs as needed. DVT ppx: Lovenox Pain: Continue physical modalities in therapy and pain medications as needed to achieve functional pain control. Sleep: Monitor and address as needed. Bowel: Monitor and address as needed. Appetite: Monitor and address as needed. Discharge planning: Pending therapy progress and care plan meeting. Will continue discussion with therapy team, SW, patient and family. After speaking with the , patient will need to go to a long-term facility for further therapy and hopeful clearing of his cognitive deficits. Will look to discharge the patient on Friday. Clinical information was sent out previously, spoke with long-term facility today concerning the patient's progress. Restrictions/ Precautions: Falls, seizure, cognition WB status: FWB Functional Hx: ADLs: Independent Cognition: Independent Mobility: No AD Barriers to Discharge: Decreased mobility and ability to perform self care, balance deficits, weakness Estimated Length of Stay: 1418 days [facility]charge Destination: prison facility with hopeful return to home after the patient's cognition improves
[2021-03-08] MEDS: traZODone 50 MG TAB PO SCH (20:55)
[2021-03-08] MEDS: ACETAMINOPHEN 325 MG TAB PO PRN (22:11)
--- NOTE | 2021-03-09 07:43 | Progress Note ---
Subjective Date of service: 03/09/21 Principal diagnosis: CVA Interval history: 76-year-old male who was in [place] when he was noted to have altered mental status and headache. He was taken to nearest ED and had no focal neurologic deficits on presentation. 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 Patient was possibly not compliant with medications per outside hospital reports. Patient later was noted to have epileptiform discharges on EEG and was started on Keppra. Blood pressure was elevated and remains in the 160s to 170s. Home medications were restarted as well as the addition of carvedilol. Patient also experienced agitation and was started on a very low-dose of Seroquel in order to reduce his risk of self injury. Patient has poor safety awareness, somewhat decreased command following at times, and visual impairment on the left. He has been cleared for Lovenox for DVT prophylaxis however has not been restarted on aspirin which he previously took due to the TIA as of yet. Patient also remains on potassium replacement. After the patient was medically stabilized they were transferred for further rehabilitation. All available medical records have been reviewed. Plan of care was discussed with patient and family (, son, daughter are here with the patient this morning). Interval History: Patient is participating in therapy and making slow progress has poor carryover day-to-day and even within the same treatment period. Taking rest breaks as needed. +BM. Denies pain, palpitations, dyspnea, cough, N/V, or joint pain. Patient remains confused but does seem to be improving. Hopeful the patient will continue to improve with his cognitive ability however he is not improving quickly enough for us to be able to keep him here and his abilities with PT and OT are too high level. Still not heard back from jail facility. Had a prolonged conversation with the alone and then with the and patient this morning. If the jail facility denies acceptance, we will continue to work with the patient. With his recent improvements in cognition, we are hopeful that we can get him to a level where he would be safe to go home with his within the next 7 to 10 days. and the are okay with this. But they also understand that if the jail facility accepts we will need to discharge him at that point. If we do continue to work with him at our level, we will incorporate increased time with speech therapy and occupational therapy with occupational therapy doing much higher level skills such as cooking and household management. No acute issues overnight Intracerebral hemorrhage: Continue secondary stroke prevention. Monitor for any signs of worsening hemorrhage intracranially. Monitor for any signs of neurologic decline, shoulder-hand syndrome, aspiration, bowel bladder deficits, sleep dysfunction. Patient is improving with concentration and cognition, will need to continue to reinforce concept with him from all disciplines including PT, OT, speech and nursing. Patient appears neurologically stable compared to previous exam. Seizure: Continue seizure precautions. Continue Keppra and patient will need to follow-up with neurologist as an outpatient for consideration of discontinuation of Keppra. No seizures so far this admission Hypertension: Blood pressure improved on current medications. Continue to monitor blood pressure and adjust medications as needed. Blood pressure improved since increasing lisinopril to twice daily dosing, stable currently Left homonymous hemianopsia: Continue therapy and monitor for improvement. Carmen calvin will need to learn to scan as much as possible to the weak side in order to avoid obstacles and to pay attention to his environment, this seems improved. Poor safety awareness: Continue to monitor the patient closely. Bed and chair alarm not being used currently. Have discussed with nursing to try to redirect patient as often as needed. Cognitive dysfunction: Has been improving over the last week. We will continue working with speech therapy to improve and have all disciplines reinforce reorientation and monitor for clearing. Still does not seem to be at the level that he would need to be for the to be able to provide care for him and would benefit from subacute rehab. Discussed with the family as well as the patient that a subacute rehab stay would be temporary and hopefully give him time to continue healing in order for him to return home in a few weeks. Insomnia: Patient was on Seroquel from the outside hospital. Seems to be sleeping much better and has not had anyone spending the night with him lately. Will discontinue Seroquel and start trazodone and adjust for effect. All records, vitals, labs and medications were reviewed. No other issues per patient, nursing or therapy. Patient remains a high risk and/or due to diagnosis of intracerebral hemorrhage with possibility of repeat hemorrhage and worsening of neurologic function. Patient has been cleared for Lovenox by hospital prior to transfer to us however aspirin has not been restarted. Patient also has risk of serious bodily harm and/or due to cognitive dysfunction and poor safety awareness leading him to possibility of falls, however the patient has not had any falls currently and his balance seems much improved than when he first admitted. Objective - Exam Narrative Exam: MUSCULOSKELETAL SPECIALTY EXAM CONSTITUTIONAL: Well developed, well nourished, appropriately groomed. RIGHT hand dominant. RESPIRATORY: Clear to auscultation bilaterally, no increased work of breathing CARDIOVASCULAR: Regular Rate/ Rhythm, no swelling, edema or tenderness in BUE or BLE. All extremities warm. GI: + bowel sounds, soft, NTTP, nondistended. INTEGUMENTARY: Normal, no lesion, rash, masses or bruising noted in extremities. MUSCULOSKELETAL: BUE and BLE normal without defect, crepitus, subluxation, effusion, arthritic changes or TTP. R 5 /5 L 4 /5 ROM normal Tone normal NEURO: CN II : Left homonymous hemianopsia, seems improved CN VII : Slight left facial droop Sensation intact in all extremities with extinction on the left. No tremor noted in 4 extremities. Follows 2 step commands Aphasia not appreciated Dysarthria not appreciated Dysphagia not appreciated Neglect not appreciated, inattention seems present but is improving Safety awareness improving slightly, cognitive dysfunction also improving and patient is able to attend to therapy task much better than he was previously. Was able to concentrate with speech therapy for greater than 45 minutes on task POSTURE and GAIT: Sitting posture good. Balance and gait observed with therapy, gait has improved and patient is not having any further loss of balance. PSYCH: Alert, disoriented, affect appears blunted. Insight impaired, speech has circuitous property but then the patient also veers completely away from topic at hand. Brief moments of what appear to be insight into his condition typically dissipate unfortunately. Perseveration noted during conversations but has improved over the last couple of days. Attention to task seems to be improving with speech therapy - Constitutional Vitals: Vital Signs - 12hr 03/08/21 03/08/21 03/09/21 20:14 22:12 04:59 Temperature 98.1 F 98.7 F Pulse Rate 69 55 L 70 Respiratory 20 20 Rate Blood Pressure 103/63 107/60 133/75 O2 Sat by Pulse 100 97 Oximetry - Allied health notes Allied health notes reviewed: nursing, PT, ST, OT FIMS assessment as documented by PT/OT/ST: Grooming Patient cleans teeth/dentures: Yes Patient bernsetin/brushes hair: Yes Patient washes, rinses and Yes dries face: Patient washes, rinses and Yes dries hands: Patient shaves: No Patient performs (no make-up/ 12/10 (100%) shaving): Grooming FIM Score 5. Supervision (Kechi applies toothpaste or opens containers.) Toileting Toileting Device Commode over Toilet Patient able to: Adjust clothes before,Clean self,Adjust clothes after Patient able to perform: 3/3 (100%) Toileting FIM Score 7. Complete [place] (Cleans self and adjusts clothing.) Social interaction/Memory/Problem solving Social Interaction FIM Score 4. Minimal Assistance (Interacts appropriately 75-90%.) Memory FIM Score 4. Minimal Assistance (Recognizes and remembers 75-90%.) Problem Solving FIM Score 4. Minimal Assistance (Solves routine problems 75-90%.) Transfers Mode of Locomotion: Walking Bed/Chair/Wheelchair Transfers 6. Modified [place] (Uses device, sliding FIM Score board, prosth./orth.) Toilet Transfers FIM Score 7. Complete [place] (Walk: Sits/stands. W/C :Approaches safely.) Patient transferred to: Shower Shower Transfers FIM Score 6. Modified [place] (Needs slide board, grab bar, tub bench.) Locomotion- walk/wheelchair Ambulation Distance 340 Eating Eating FIM Score 7. Complete [place] (Cuts meat, opens containers, regular diet.) Dressing-Upper body Patient retrieves clothing Yes items: Patient applies/removes UE No: N/A prosthesis or orthosis: Upper Body Dressing FIM Score 6. Modified [place] (Needs equipment, velcro or pros./orth.) Dressing-lower body Patient retrieves clothing Yes items: Patient applies/removes LE No: N/A prosthesis or orthosis: Lower Body Dressing FIM Score 7. Complete [place] (Dresses self. Gets own clothes.) - Labs CBC & Chem 7: 03/07/21 09:03 03/07/21 09:03 Labs: Laboratory Results - last 72 hr 03/07/21 03/07/21 09:03 09:03 WBC 6.5 RBC 3.90 Hgb 12.1 Hct 33.8 L MCV 87 MCH 31 MCHC 36 H RDW 14.4 Plt Count 201 Sodium 141 Potassium 4.5 Chloride 104.8 Carbon Dioxide 21 L Anion Gap 20 BUN 21 H Creatinine 1.1 Estimated GFR > 60 BUN/Creatinine Ratio 19 Glucose 140 H Calcium 9.9 Assessment and Plan Intracerebral hemorrhage: Continue Secondary Stroke Prevention (Antithrombotic on hold, Statin (Goal LDL-C <70), BP control (Goal <140/90), GLU control (Goal A1c <7), and lifestyle modification). Monitor for recurrent stroke or post- stroke recrudescence. Continue neuromotor therapy as above. Family training when available. Monitor for post stroke depression, cognitive deficits, seizure, dysphagia, aphasia, shoulder hand syndrome, sensory deficits, spasticity, bowel/bladder deficits, sleep disturbance, vision deficits and DVT. Prognosis for recovery and Secondary Stroke Prevention discussed. Follow up with Neurology. No driving until cleared by Neurologist. Seizure: Maintain seizure precautions, continue Keppra for prophylaxis. Patient will need follow-up with neurologist for consideration of removal of Keppra in several months. Hypertension: Continue medication. Monitor blood pressure. Adjust medications as needed for normotension. Hold for hypotension. Goal SBP <140. Monitor and adjust medications as needed for better pressure control. Left homonymous hemianopsia: Continue therapy to improve the patient's ability to recognize and scan on his left side. Continue to work with the patient Poor safety awareness: Continue to monitor the patient closely for safety. Will need to continue working with the patient to improve his safety awareness. Low-dose Seroquel was in place at [facility] for intermittent agitation which the patient was having at [facility] prior to discharge, we have changed Seroquel to scheduled to improve sleepwe will stop this and start trazodone. Patient is not having agitation here and has not since he has been here. He is typically easy to redirect. Cognitive dysfunction: Continue working with [employer] to improve patient's cognition and memory . Insomnia: Likely having some effect on the patient's cognition early on. Sleep has improved and sleep-wake cycles have normalized. Patient no longer getting out of bed in the middle of the night. Have stopped Seroquel and started trazodone. ADL dysfunction: OT will work on improving ability to perform ADLs (including assistive devices) to increase independence and decrease caregiver burden and improve functional transfers and mobility training. Difficulty walking: PT will work on gait training and proper use of assistive devices and advance as appropriate to use of stairs and outside ambulation on uneven surfaces. Unsteadiness on feet: PT will work on improving static and dynamic sitting and standing balance as well as proper use of assistive devices to decrease risk of falls. Abnormality of gait: PT will work to improve safety and efficiency of gait through neuromotor training and gait training along with instruction on proper use of assistive devices. Muscle weakness: PT & OT will work on strengthening exercises to improve functional strength including mixture of closed and open kinetic chain exercises. Debility: PT & OT will work on improving overall functional status to improve participation with ADLs, mobility and social involvement. Fatigue: PT & OT will work on improving endurance through aerobic exercises and therapeutic activity while monitoring patients tolerance for activity and vital signs as needed. DVT ppx: Lovenox Pain: Continue physical modalities in therapy and pain medications as needed to achieve functional pain control. Sleep: Monitor and address as needed. Bowel: Monitor and address as needed. Appetite: Monitor and address as needed. Discharge planning: Pending therapy progress and care plan meeting. Will continue discussion with therapy team, SW, patient and family. After speaking with the , patient will need to go to a jail facility for further therapy and hopeful clearing of his cognitive deficits. Will look to discharge the patient on Friday. Clinical information was sent out previously, spoke with jail facility today concerning the patient's progress. Restrictions/ Precautions: Falls, seizure, cognition WB status: FWB Functional Hx: ADLs: Independent Cognition: Independent Mobility: No AD Barriers to Discharge: Decreased mobility and ability to perform self care, balance deficits, weakness Estimated Length of Stay: 1418 days Discharge Destination: retirement facility with hopeful return to home after the patient's cognition improves
[2021-03-09] MEDS: ENOXAPARIN 40 MG/0.4 ML INJ SUB-Q SCH (08:17)
[2021-03-09] MEDS: POTASSIUM CHLORIDE ER 20 MEQ TAB PO SCH (08:19)
[2021-03-09] MEDS: amLODIPine 10 MG TAB PO SCH (08:20)
[2021-03-09] MEDS: LISINOPRIL 10 MG TAB PO SCH (08:20)
[2021-03-09] MEDS: DOXAZOSIN 4 MG TAB PO SCH (08:21)
[2021-03-09] MEDS: levETIRAcetam 500 MG/5 ML ORAL LIQD PO SCH ×2 (08:21→21:15)
[2021-03-09] MEDS: POLYETHYLENE GLYCOL 3350 17 GM POWDER PO SCH (08:22)
[2021-03-09] MEDS: traZODone 50 MG TAB PO SCH (21:14)
[2021-03-10] MEDS: LISINOPRIL 10 MG TAB PO SCH ×3 (04:10→21:34)
[2021-03-10] MEDS: levETIRAcetam 500 MG/5 ML ORAL LIQD PO SCH ×2 (08:56→21:34)
[2021-03-10] MEDS: POLYETHYLENE GLYCOL 3350 17 GM POWDER PO SCH (08:57)
[2021-03-10] MEDS: ENOXAPARIN 40 MG/0.4 ML INJ SUB-Q SCH (08:57)
[2021-03-10] MEDS: POTASSIUM CHLORIDE ER 20 MEQ TAB PO SCH (08:57)
[2021-03-10] MEDS: amLODIPine 10 MG TAB PO SCH (08:59)
[2021-03-10] MEDS: DOXAZOSIN 4 MG TAB PO SCH (09:02)
[2021-03-10] MEDS: traZODone 50 MG TAB PO SCH (21:34)
[2021-03-11] MEDS: POLYETHYLENE GLYCOL 3350 17 GM POWDER PO SCH (09:35)
[2021-03-11] MEDS: amLODIPine 10 MG TAB PO SCH (09:36)
[2021-03-11] MEDS: ENOXAPARIN 40 MG/0.4 ML INJ SUB-Q SCH (09:36)
[2021-03-11] MEDS: levETIRAcetam 500 MG/5 ML ORAL LIQD PO SCH ×2 (09:36→22:14)
[2021-03-11] MEDS: LISINOPRIL 10 MG TAB PO SCH ×2 (09:37→22:13)
[2021-03-11] MEDS: DOXAZOSIN 4 MG TAB PO SCH (09:37)
[2021-03-11] MEDS: POTASSIUM CHLORIDE ER 20 MEQ TAB PO SCH (09:37)
[2021-03-11] MEDS: traZODone 50 MG TAB PO SCH (22:13)
[2021-03-11] MEDS: ACETAMINOPHEN 325 MG TAB PO PRN (22:14)
[2021-03-12 08:10] LABS: Hematocrit 28.1 % (35.5-45.6); Mean Corpuscular HGB Conc 36 % (32-34); Mean Corpuscular Volume 86 fl (84-94); Platelet Count 113 K/mm3 (140-440); Red Blood Count 3.26 M/mm3 (3.65-5.03); Red Cell Distribution Width 14.2 % (13.2-15.2)
[2021-03-12] MEDS: POTASSIUM CHLORIDE ER 20 MEQ TAB PO SCH (08:20)
[2021-03-12] MEDS: LISINOPRIL 10 MG TAB PO SCH ×2 (08:20→21:35)
[2021-03-12] MEDS: ENOXAPARIN 40 MG/0.4 ML INJ SUB-Q SCH (08:20)
[2021-03-12] MEDS: levETIRAcetam 500 MG/5 ML ORAL LIQD PO SCH ×2 (08:20→21:31)
[2021-03-12] MEDS: POLYETHYLENE GLYCOL 3350 17 GM POWDER PO SCH (08:20)
[2021-03-12] MEDS: amLODIPine 10 MG TAB PO SCH (08:20)
[2021-03-12] MEDS: DOXAZOSIN 4 MG TAB PO SCH (08:25)
[2021-03-12] MEDS: ACETAMINOPHEN 325 MG TAB PO PRN (08:33)
[2021-03-12 08:53] LABS: Blood Urea Nitrogen 15 mg/dL (9-20); Calcium 9.1 mg/dL (8.4-10.2); Hemolysis Index 2
[2021-03-12 08:56] LABS: BUN/Creatinine Ratio 21
[2021-03-12] MEDS: traZODone 50 MG TAB PO SCH (21:31)
[2021-03-13] MEDS: POTASSIUM CHLORIDE ER 20 MEQ TAB PO SCH (08:53)
[2021-03-13] MEDS: ENOXAPARIN 40 MG/0.4 ML INJ SUB-Q SCH (08:53)
[2021-03-13] MEDS: levETIRAcetam 500 MG/5 ML ORAL LIQD PO SCH ×2 (08:53→21:49)
[2021-03-13] MEDS: POLYETHYLENE GLYCOL 3350 17 GM POWDER PO SCH (08:53)
[2021-03-13] MEDS: LISINOPRIL 10 MG TAB PO SCH ×2 (08:54→21:53)
[2021-03-13] MEDS: amLODIPine 10 MG TAB PO SCH (08:55)
[2021-03-13] MEDS: DOXAZOSIN 4 MG TAB PO SCH (08:56)
[2021-03-13] MEDS: ACETAMINOPHEN 325 MG TAB PO PRN (18:30)
--- NOTE | 2021-03-13 19:50 | Progress Note ---
Subjective Date of service: 03/13/21 Principal diagnosis: CVA Interval history: 76-year-old male who was in [place] when he was noted to have altered mental status and headache. He was taken to nearest ED and had no focal neurologic deficits on presentation. 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 Patient was possibly not compliant with medications per outside hospital reports. Patient later was noted to have epileptiform discharges on EEG and was started on Keppra. Blood pressure was elevated and remains in the 160s to 170s. Home medications were restarted as well as the addition of carvedilol. Patient also experienced agitation and was started on a very low-dose of Seroquel in order to reduce his risk of self injury. Patient has poor safety awareness, somewhat decreased command following at times, and visual impairment on the left. He has been cleared for Lovenox for DVT prophylaxis however has not been restarted on aspirin which he previously took due to the TIA as of yet. Patient also remains on potassium replacement. After the patient was medically stabilized they were transferred for further rehabilitation. All available medical records have been reviewed. Plan of care was discussed with patient and family (, son, daughter are here with the patient this morning). Interval History: Patient is participating in therapy and making slow progress has poor carryover day-to-day and even within the same treatment period. Taking rest breaks as needed. +BM. Denies pain, palpitations, dyspnea, cough, N/V, or joint pain. Patient doing much better over the last couple of days. believes that at this point she can take the patient home safely. Will observe the patient over the next day or so and look to discharge him home on if his cognitive improvements hold. No acute issues overnight. Hemoglobin slightly low, denies any bleeding from the rectum are hematuria. Will recheck CBC tomorrow. Intracerebral hemorrhage: Continue secondary stroke prevention. Monitor for any signs of worsening hemorrhage intracranially. Monitor for any signs of neurologic decline, shoulder-hand syndrome, aspiration, bowel bladder deficits, sleep dysfunction. Patient is improving with concentration and cognition. Patient appears neurologically stable compared to previous exam. Seizure: Continue seizure precautions. Continue Keppra and patient will need to follow-up with neurologist as an outpatient for consideration of discontinuation of Keppra. No seizures so far this admission Hypertension: Blood pressure improved on current medications. Continue to monitor blood pressure and adjust medications as needed. Blood pressure improved since increasing lisinopril to twice daily dosing, stable currently Left homonymous hemianopsia: Continue therapy and monitor for improvement. Patient finally able to participate in the exam, seems to have good vision in all lub[place] at this point. Would continue to monitor him for improvement but hopefully this is resolved at this point. Poor safety awareness: Continue to monitor the patient closely. Much improved over the last week. Cognitive dysfunction: Has been improving over the last week. We will continue working with speech therapy to improve and have all disciplines reinforce reorientation and monitor for clearing. Much improved, looking at discharging patient home with his at this point due to the level of improvement that he has made. and patient are both excited about this opportunity and his recovery. Insomnia: Seems to be doing well on trazodone. All records, vitals, labs and medications were reviewed. No other issues per patient, nursing or therapy. Patient discussed during team conference. He is making good progress from a cognitive standpoint and looks like he is finally turned the corner. Had appro ximately 30-minute conversation with the patient and his concerning discharge home. I will monitor the patient over the next couple of days and look to discharge him on . In total, greater than 40 minutes was invested in patient care today with greater than 50% of that time being spent counseling and coordinating care. Objective - Exam Narrative Exam: MUSCULOSKELETAL SPECIALTY EXAM CONSTITUTIONAL: Well developed, well nourished, appropriately groomed. RIGHT hand dominant. RESPIRATORY: Clear to auscultation bilaterally, no increased work of breathing CARDIOVASCULAR: Regular Rate/ Rhythm, no swelling, edema or tenderness in BUE or BLE. All extremities warm. GI: + bowel sounds, soft, NTTP, nondistended. INTEGUMENTARY: Normal, no lesion, rash, masses or bruising noted in extremities. MUSCULOSKELETAL: BUE and BLE normal without defect, crepitus, subluxation, effusion, arthritic changes or TTP. R 5 /5 L 4 /5 ROM normal Tone normal NEURO: CN II : Left homonymous hemianopsia, seems improved CN VII : Slight left facial droop Sensation intact in all extremities with extinction on the left. No tremor noted in 4 extremities. Follows 2 step commands Aphasia not appreciated Dysarthria not appreciated Dysphagia not appreciated Neglect not appreciated, inattention seems present but is improving Safety awareness improving slightly, cognitive dysfunction also improving and patient is able to attend to therapy task much better than he was previously. POSTURE and GAIT: Sitting posture good. Balance and gait observed with therapy, gait has improved and patient is not having any further loss of balance. PSYCH: Alert, disoriented, affect appears blunted. Insight improved.. Very slight perseveration today.. Attention to task seems to be improving with speech therapy - Constitutional Vitals: Vital Signs - 12hr 03/13/21 03/13/21 03/13/21 08:54 08:55 08:56 Pulse Rate 101 H 101 H 101 H Blood Pressure 106/62 106/62 106/62 - Allied health notes Allied health notes reviewed: nursing, ST, OT FIMS assessment as documented by PT/OT/ST: Grooming Patient cleans teeth/dentures: Yes Patient bernstein/brushes hair: Yes Patient washes, rinses and Yes dries face: Patient washes, rinses and Yes dries hands: Patient shaves: No Patient performs (no make-up/ 4/4 (100%) shaving): Grooming FIM Score 5. Supervision ([place] applies toothpaste or opens containers.) Toileting Toileting Device Commode over Toilet Patient able to: Adjust clothes before,Clean self,Adjust clothes after Patient able to perform: 3/3 (100%) Toileting FIM Score 7. Complete [place] (Cleans self and adjusts clothing.) Social interaction/Memory/Problem solving Social Interaction FIM Score 6. Mod. [place] (Mostly appropriate. May need meds. No supv.) Memory FIM Score 5. Supervision (Needs cueing <10%, stressful/ unfamiliar situations.) Problem Solving FIM Score 6. Mod. [place] (Mild difficulty or needs more time w/ complex.) Transfers Mode of Locomotion: Walking Bed/Chair/Wheelchair Transfers 6. Modified [place] (Uses device, sliding FIM Score board, prosth./orth.) Toilet Transfers FIM Score 7. Complete [place] (Walk: Sits/stands. W/C :Approaches safely.) Patient transferred to: Shower Shower Transfers FIM Score 6. Modified [place] (Needs slide board, grab bar, tub bench.) Locomotion- walk/wheelchair Ambulation Distance 340 Eating Eating FIM Score 7. Complete [place] (Cuts meat, opens containers, regular diet.) Dressing-Upper body Patient retrieves clothing Yes items: Patient applies/removes UE No: N/A prosthesis or orthosis: Upper Body Dressing FIM Score 6. Modified [place] (Needs equipment, velcro or pros./orth.) Dressing-lower body Patient retrieves clothing Yes items: Patient applies/removes LE No: N/A prosthesis or orthosis: Lower Body Dressing FIM Score 6. Modified [place] (Needs equipment, velcro or pros./orth.) - Labs CBC & Chem 7: 03/12/21 07:14 03/12/21 07:14 Labs: Laboratory Results - last 72 hr 03/12/21 03/12/21 07:14 07:14 WBC 4.0 L RBC 3.26 L Hgb 10.0 L Hct 28.1 L MCV 86 MCH 31 MCHC 36 H RDW 14.2 Plt Count 113 L Sodium 139 Potassium 4.2 Chloride 106.1 Carbon Dioxide 24 Anion Gap 13 BUN 15 Creatinine 0.7 L Estimated GFR > 60 BUN/Creatinine Ratio 21 Glucose 93 Calcium 9.1 Assessment and Plan Intracerebral hemorrhage: Continue Secondary Stroke Prevention (Antithrombotic on hold, Statin (Goal LDL-C <70), BP control (Goal <140/90), GLU control (Goal A1c <7), and lifestyle modification). Monitor for recurrent stroke or post- stroke recrudescence. Continue neuromotor therapy as above. Family training when available. Monitor for post stroke depression, cognitive deficits, seizure, dysphagia, aphasia, shoulder hand syndrome, sensory deficits, spasticity, bowel/bladder deficits, sleep disturbance, vision deficits and DVT. Prognosis for recovery and Secondary Stroke Prevention discussed. Follow up with Neurology. No driving until cleared by Neurologist. Seizure: Maintain seizure precautions, continue Keppra for prophylaxis. Patient will need follow-up with neurologist for consideration of removal of Keppra in several months. Hypertension: Continue medication. Monitor blood pressure. Adjust medications as needed for normotension. Hold for hypotension. Goal SBP <140. Monitor and adjust medications as needed for better pressure control. Left homonymous hemianopsia: Continue therapy to improve the patient's ability to recognize and scan on his left side. Continue to work with the patient Poor safety awareness: Continue to monitor the patient closely for safety. Will need to continue working with the patient to improve his safety awareness. Low-dose Seroquel was in place at [facility] for intermittent agitation which the patient was having at [facility] prior to discharge, we have changed Seroquel to scheduled to improve sleepwe will stop this and start trazodone. Patient is not having agitation here and has not since he has been here. He is typically easy to redirect. Cognitive dysfunction: Continue working with [employer] to improve patient's cognition and memory . Insomnia: Likely having some effect on the patient's cognition early on. Sleep has improved and sleep-wake cycles have normalized. Patient no longer getting out of bed in the middle of the night. Have stopped Seroquel and started trazodone. ADL dysfunction: OT will work on improving ability to perform ADLs (including assistive devices) to increase independence and decrease caregiver burden and improve functional transfers and mobility training. Difficulty walking: PT will work on gait training and proper use of assistive devices and advance as appropriate to use of stairs and outside ambulation on uneven surfaces. Unsteadiness on feet: PT will work on improving static and dynamic sitting and standing balance as well as proper use of assistive devices to decrease risk of falls. Abnormality of gait: PT will work to improve safety and efficiency of gait thro [facility] neuromotor training and gait training along with instruction on proper use of assistive devices. Muscle weakness: PT & OT will work on strengthening exercises to improve functional strength including mixture of closed and open kinetic chain exercises. Debility: PT & OT will work on improving overall functional status to improve participation with ADLs, mobility and social involvement. Fatigue: PT & OT will work on improving endurance through aerobic exercises and therapeutic activity while monitoring patients tolerance for activity and vital signs as needed. DVT ppx: Lovenox Pain: Continue physical modalities in therapy and pain medications as needed to achieve functional pain control. Sleep: Monitor and address as needed. Bowel: Monitor and address as needed. Appetite: Monitor and address as needed. Discharge planning: Pending therapy progress and care plan meeting. Will continue discussion with therapy team, SW, patient and family. Patient has had significant improvement, will look to discharge on with his to home. Restrictions/ Precautions: Falls, seizure, cognition WB status: FWB Functional Hx: ADLs: Independent Cognition: Independent Mobility: No AD Barriers to Discharge: Decreased mobility and ability to perform self care, balance deficits, weakness Estimated Length of Stay: 1418 days Discharge Destination: We will look to discharge patient home with his since he has had significant improvement over the last week.
[2021-03-13] MEDS: traZODone 50 MG TAB PO SCH (21:50)
--- NOTE | 2021-03-14 07:19 | Progress Note ---
Subjective Date of service: 03/14/21 Principal diagnosis: CVA Interval history: 76-year-old male who was in [place] when he was noted to have altered mental status and headache. He was taken to nearest ED and had no focal neurologic deficits on presentation. 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 Patient was possibly not compliant with medications per outside hospital reports. Patient later was noted to have epileptiform discharges on EEG and was started on Keppra. Blood pressure was elevated and remains in the 160s to 170s. Home medications were restarted as well as the addition of carvedilol. Patient also experienced agitation and was started on a very low-dose of Seroquel in order to reduce his risk of self injury. Patient has poor safety awareness, somewhat decreased command following at times, and visual impairment on the left. He has been cleared for Lovenox for DVT prophylaxis however has not been restarted on aspirin which he previously took due to the TIA as of yet. Patient also remains on potassium replacement. After the patient was medically stabilized they were transferred for further rehabilitation. All available medical records have been reviewed. Plan of care was discussed with patient and family (, son, daughter are here with the patient this morning). Interval History: Patient is participating in therapy and making slow progress has poor carryover day-to-day and even within the same treatment period. Taking rest breaks as needed. +BM. Denies pain, palpitations, dyspnea, cough, N/V, or joint pain. Patient doing much better over the last couple of days. believes that at this point she can take the patient home safely. Will observe the patient over the next day or so and look to discharge him home on if his cognitive improvements hold. No acute issues overnight. Hemoglobin improved on recheck and back to normal. Intracerebral hemorrhage: Continue secondary stroke prevention. Monitor for any signs of worsening hemorrhage intracranially. Monitor for any signs of neurologic decline, shoulder-hand syndrome, aspiration, bowel bladder deficits, sleep dysfunction. Patient is improving with concentration and cognition. Patient appears neurologically stable compared to previous exam. Seizure: Continue seizure precautions. Continue Keppra and patient will need to follow-up with neurologist as an outpatient for consideration of discontinuation of Keppra. No seizures so far this admission Hypertension: Blood pressure improved on current medications. Continue to monitor blood pressure and adjust medications as needed. Blood pressure improved since increasing lisinopril to twice daily dosing, stable currently Left homonymous hemianopsia: Continue therapy and monitor for improvement. Patient finally able to participate in the exam, seems to have good vision in all lubin at this point. Would continue to monitor him for improvement but hopefully this is resolved at this point. Poor safety awareness: Continue to monitor the patient closely. Much improved over the last week. Cognitive dysfunction: Has been improving over the last week. We will continue working with speech therapy to improve and have all disciplines reinforce reorientation and monitor for clearing. Much improved, looking at discharging patient home with his at this point due to the level of improvement that he has made. and patient are both excited about this opportunity and his recovery. Insomnia: Seems to be doing well on trazodone. All records, vitals, labs and medications were reviewed. No other issues per patient, nursing or therapy. Objective - Exam Narrative Exam: MUSCULOSKELETAL SPECIALTY EXAM CONSTITUTIONAL: Well developed, well nourished, appropriately groomed. RIGHT hand dominant. RESPIRATORY: Clear to auscultation bilaterally, no increased work of breathing CARDIOVASCULAR: Regular Rate/ Rhythm, no swelling, edema or tenderness in BUE or BLE. All extremities warm. GI: + bowel sounds, soft, NTTP, nondistended. INTEGUMENTARY: Normal, no lesion, rash, masses or bruising noted in extremities. MUSCULOSKELETAL: BUE and BLE normal without defect, crepitus, subluxation, effusion, arthritic changes or TTP. R 5 /5 L 5/5 ROM normal Tone normal NEURO: CN VII : Slight left facial droop Sensation intact in all extremities with extinction on the left. No tremor noted in 4 extremities. Follows 2 step commands Aphasia not appreciated Dysarthria not appreciated Dysphagia not appreciated Neglect not appreciated, inattention seems present but is improving Safety awareness improving slightly, cognitive dysfunction also improving and patient is able to attend to therapy task much better than he was previously. POSTURE and GAIT: Sitting posture good. Balance and gait observed with therapy, gait has improved and patient is not having any further loss of balance. Balance intact even with Romberg testing PSYCH: Alert, oriented x3, affect euthymic. Insight improved.. Very slight perseveration today.. Attention to task seems to be improving with speech therapy - Constitutional Vitals: Vital Signs - 12hr 03/13/21 03/13/21 19:33 19:52 Temperature 98.2 F Pulse Rate 48 L Respiratory 18 17 Rate Blood Pressure 123/70 O2 Sat by Pulse 100 Oximetry - Allied health notes Allied health notes reviewed: nursing, ST, OT FIMS assessment as documented by PT/OT/ST: Grooming Patient cleans teeth/dentures: Yes Patient bernstein/brushes hair: Yes Patient washes, rinses and Yes dries face: Patient washes, rinses and Yes dries hands: Patient shaves: No Patient performs (no make-up/ 4/4 (100%) shaving): Grooming FIM Score 5. Supervision ([place] applies toothpaste or opens containers.) Toileting Toileting Device Commode over Toilet Patient able to: Adjust clothes before,Clean self,Adjust clothes after Patient able to perform: 3/3 (100%) Toileting FIM Score 7. Complete [place] (Cleans self and adjusts clothing.) Social interaction/Memory/Problem solving Social Interaction FIM Score 6. Mod. [place] (Mostly appropriate. May need meds. No supv.) Memory FIM Score 5. Supervision (Needs cueing <10%, stressful/ unfamiliar situations.) Problem Solving FIM Score 6. Mod. [place] (Mild difficulty or needs more time w/ complex.) Transfers Mode of Locomotion: Walking Bed/Chair/Wheelchair Transfers 6. Modified [place] (Uses device, sliding FIM Score board, prosth./orth.) Toilet Transfers FIM Score 7. Complete [place] (Walk: Sits/stands. W/C :Approaches safely.) Patient transferred to: Shower Shower Transfers FIM Score 6. Modified [place] (Needs slide board, grab bar, tub bench.) Locomotion- walk/wheelchair Ambulation Distance 340 Eating Eating FIM Score 7. Complete [place] (Cuts meat, opens containers, regular diet.) Dressing-Upper body Patient retrieves clothing Yes items: Patient applies/removes UE No: N/A prosthesis or orthosis: Upper Body Dressing FIM Score 6. Modified [place] (Needs equipment, velcro or pros./orth.) Dressing-lower body Patient retrieves clothing Yes items: Patient applies/removes LE No: N/A prosthesis or orthosis: Lower Body Dressing FIM Score 6. Modified [place] (Needs equipment, velcro or pros./orth.) - Labs CBC & Chem 7: 03/14/21 07:00 03/12/21 07:14 Labs: Laboratory Results - last 72 hr 03/12/21 03/12/21 07:14 07:14 WBC 4.0 L RBC 3.26 L Hgb 10.0 L Hct 28.1 L MCV 86 MCH 31 MCHC 36 H RDW 14.2 Plt Count 113 L Sodium 139 Potassium 4.2 Chloride 106.1 Carbon Dioxide 24 Anion Gap 13 BUN 15 Creatinine 0.7 L Estimated GFR > 60 BUN/Creatinine Ratio 21 Glucose 93 Calcium 9.1 Assessment and Plan Intracerebral hemorrhage: Continue Secondary Stroke Prevention (Antithrombotic on hold, Statin (Goal LDL-C <70), BP control (Goal <140/90), GLU control (Goal A1c <7), and lifestyle modification). Monitor for recurrent stroke or post- stroke recrudescence. Continue neuromotor therapy as above. Family training when available. Monitor for post stroke depression, cognitive deficits, seizure, dysphagia, aphasia, shoulder hand syndrome, sensory deficits, spasticity, bowel/bladder deficits, sleep disturbance, vision deficits and DVT. Prognosis for recovery and Secondary Stroke Prevention discussed. Follow up with Neurology. No driving until cleared by Neurologist. Seizure: Maintain seizure precautions, continue Keppra for prophylaxis. Patient will need follow-up with neurologist for consideration of removal of Keppra in several months. Hypertension: Continue medication. Monitor blood pressure. Adjust medications as needed for normotension. Hold for hypotension. Goal SBP <140. Monitor and adjust medications as needed for better pressure control. Left homonymous hemianopsia: Continue therapy to improve the patient's ability to recognize and scan on his left side. Continue to work with the patient Poor safety awareness: Continue to monitor the patient closely for safety. Will need to continue working with the patient to improve his safety awareness. Low-dose Seroquel was in place at [facility] for intermittent agitation which the patient was having at [facility] prior to discharge, we have changed Seroquel to scheduled to improve sleepwe will stop this and start trazodone. Patient is not having agitation here and has not since he has been here. He is typically easy to redirect. Cognitive dysfunction: Continue working with [facility] [employer] to improve patient's cognition and memory . Insomnia: Likely having some effect on the patient's cognition early on. Sleep has improved and sleep-wake cycles have normalized. Patient no longer getting out of bed in the middle of the night. Have stopped Seroquel and started trazodone. ADL dysfunction: OT will work on improving ability to perform ADLs (including assistive devices) to increase independence and decrease caregiver burden and improve functional transfers and mobility training. Difficulty walking: PT will work on gait training and proper use of assistive devices and advance as appropriate to use of stairs and outside ambulation on uneven surfaces. Unsteadiness on feet: PT will work on improving static and dynamic sitting and standing balance as well as proper use of assistive devices to decrease risk of falls. Abnormality of gait: PT will work to improve safety and efficiency of gait through neuromotor training and gait training along with instruction on proper use of assistive devices. Muscle weakness: PT & OT will work on strengthening exercises to improve functional strength including mixture of closed and open kinetic chain exercises. Debility: PT & OT will work on improving overall functional status to improve participation with ADLs, mobility and social involvement. Fatigue: PT & OT will work on improving endurance through aerobic exercises and therapeutic activity while monitoring patients tolerance for activity and vital signs as needed. DVT ppx: Lovenox Pain: Continue physical modalities in therapy and pain medications as needed to achieve functional pain control. Sleep: Monitor and address as needed. Bowel: Monitor and address as needed. Appetite: Monitor and address as needed. Discharge planning: Pending therapy progress and care plan meeting. Will continue discussion with therapy team, SW, patient and family. Patient has had significant improvement, will look to discharge on with his to home. Restrictions/ Precautions: Falls, seizure, cognition WB status: FWB Functional Hx: ADLs: Independent Cognition: Independent Mobility: No AD Barriers to Discharge: Decreased mobility and ability to perform self care, balance deficits, weakness Estimated Length of Stay: 1418 days Discharge Destination: We will look to discharge patient home with his since he has had significant improvement over the last week.
[2021-03-14 07:33] LABS: Hemoglobin 11.9 gm/dl (11.8-15.2); Mean Corpuscular HGB Conc 36 % (32-34); Mean Corpuscular Volume 86 fl (84-94); Platelet Count 122 K/mm3 (140-440); Red Blood Count 3.83 M/mm3 (3.65-5.03); Red Cell Distribution Width 14.5 % (13.2-15.2)
[2021-03-14] MEDS: amLODIPine 10 MG TAB PO SCH (08:46)
[2021-03-14] MEDS: DOXAZOSIN 4 MG TAB PO SCH (08:48)
[2021-03-14] MEDS: POTASSIUM CHLORIDE ER 20 MEQ TAB PO SCH (08:49)
[2021-03-14] MEDS: LISINOPRIL 10 MG TAB PO SCH ×2 (08:50→22:21)
[2021-03-14] MEDS: levETIRAcetam 500 MG/5 ML ORAL LIQD PO SCH ×2 (08:50→22:21)
[2021-03-14] MEDS: ENOXAPARIN 40 MG/0.4 ML INJ SUB-Q SCH (08:50)
[2021-03-14] MEDS: POLYETHYLENE GLYCOL 3350 17 GM POWDER PO SCH (08:51)
[2021-03-14] MEDS: ACETAMINOPHEN 325 MG TAB PO PRN (19:26)
[2021-03-14] MEDS: traZODone 50 MG TAB PO SCH (22:19)
[2021-03-15] MEDS: POTASSIUM CHLORIDE ER 20 MEQ TAB PO SCH (08:37)
[2021-03-15] MEDS: ENOXAPARIN 40 MG/0.4 ML INJ SUB-Q SCH (08:38)
[2021-03-15] MEDS: levETIRAcetam 500 MG/5 ML ORAL LIQD PO SCH (08:38)
[2021-03-15] MEDS: ACETAMINOPHEN 325 MG TAB PO PRN (08:38)
[2021-03-15] MEDS: POLYETHYLENE GLYCOL 3350 17 GM POWDER PO SCH (08:38)
[2021-03-15] MEDS: LISINOPRIL 10 MG TAB PO SCH (08:39)
[2021-03-15] MEDS: amLODIPine 10 MG TAB PO SCH (08:39)
[2021-03-15] MEDS: DOXAZOSIN 4 MG TAB PO SCH (08:40)
--- NOTE | 2021-03-15 09:40 | Discharge Summary ---
Providers - Providers Date of Admission: 02/21/21 19:22 Date of discharge: 03/15/21 Attending physician: VERÓNICA KAUR III, MD 02/21/21 14:50 Occupational Therapy Evaluate and Treat [CONS] Routine Comment: Reason For Exam: ADL dysfunction Physical Therapy Evaluation and Treat [CONS] Routine Comment: Reason For Exam: Mobility Dysfunction 02/21/21 15:03 Consult to Case Management [CONS] Routine Services Needed at Discharge: Home Health Services Notified:: cm notified Speech Therapy Evaluation and Treat [CONS] Routine Reason For Exam: CVA, Assess/Treat Speech/Cog/Swallow Primary care physician: GRIEF COUNSELOR Hospitalization Reason for admission: Intracerebral hemorrhage Condition: Good Hospital course: 76-year-old male who was in [place] when he was noted to have altered mental status and headache. He was taken to nearest ED and had no focal neurologic deficits on presentation. 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 Patient was possibly not compliant with medications per outside hospital reports. Patient later was noted to have epileptiform discharges on EEG and was started on Keppra. Blood pressure was elevated and remains in the 160s to 170s. Home medications were restarted as well as the addition of carvedilol. Patient also experienced agitation and was started on a very low-dose of Seroquel in order to reduce his risk of self injury. Patient has poor safety awareness, somewhat decreased command following at times, and visual impairment on the left. He has been cleared for Lovenox for DVT prophylaxis however has not been restarted on aspirin which he previously took due to the TIA as of yet. Patient also remains on potassium replacement. After the patient was medically stabilized they were transferred for further rehabilitation. All available medical records have been reviewed. Plan of care was discussed with patient and family (, son, daughter are here with the patient this morning). Patient does have some perseveration noted, left homonymous hemianopsia, and a slight left facial droop. 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 Left upper and lower extremities are slightly weaker but still functional. On examination with OT this morning patient had significant uncleared food still in his mouth from breakfast. Interval History: Intracerebral hemorrhage: Monitor for any signs of worsening hemorrhage intracranially. Monitor for any signs of neurologic decline, aspiration, bowel bladder deficits, sleep dysfunction. Patient is improving with concentration and cognition. Patient appears neurologically stable compared to previous exam. Seizure: Continue seizure precautions. Continue Keppra and patient will need to follow-up with neurologist as an outpatient for consideration of discontinuation of Keppra. No seizures so far this admission. Anemia: Likely a lab issue as the hemoglobin corrected within a day or 2. Hypertension: Blood pressure improved on current medications. Continue to monitor blood pressure and adjust medications as needed. Left homonymous hemianopsia: Patient finally able to participate in the exam, seems to have good vision in all lubin at this point. Would continue to monitor him for improvement but hopefully this is resolved at this point. Poor safety awareness: Continue to monitor the patient closely. Much improved over the last week and patient seems to be close to baseline. Cognitive dysfunction: Has been improving over the last week. We will continue working with speech therapy to improve and have all disciplines reinforce reorientation and monitor for clearing. Much improved, and will discharge home with . and patient are both excited about this opportunity and his recovery. Insomnia: Seems to be doing well on trazodone. ADL and mobility dysfunction: Improved, patient is able to ambulate without any assistance and has been discharged from physical therapy. Patient doing well and is mostly supervision/modified independent with ADLs. Discussed discharge with the patient and the . Patient will need to follow- up with neurologist of their choosing after discharge for continued surveillance and consideration of discontinuation of Keppra/seizure precautions. Patient and instructed to immediately call 911 for an ambulance if he started experiencing any signs or symptoms of another CVA including slurred speech, weakness, facial droop, cognitive changes. Patient will also need to follow-up with PCP for further monitoring of chronic medical conditions. Disposition: [id number] HOME UNDER HOME [facility] Final Discharge Diagnosis (Prints w/discharge instructions): Intracerebral hemorrhage Time spent for discharge: >35mins Core Measure Documentation - Palliative Care Palliative Care/ Comfort Measures: Not Applicable - Core Measures Any of the following diagnoses?: stroke - Stroke Discharge Requirements Statin for LDL = or >70 mg/dl on DC: Yes Anticoag for atrial fib/atrial flutter: Not Applicable Antithrombotic for ischemic stroke: No Reason for no antithrombotic on DC: Medical Contraindication (Hemorrhagic CVA) Exam - Physical Exam Narrative exam: MUSCULOSKELETAL SPECIALTY EXAM CONSTITUTIONAL: Well developed, well nourished, appropriately groomed. RIGHT hand dominant. RESPIRATORY: Clear to auscultation bilaterally, no increased work of breathing CARDIOVASCULAR: Regular Rate/ Rhythm, no swelling, edema or tenderness in BUE or BLE. All extremities warm. GI: + bowel sounds, soft, NTTP, nondistended. INTEGUMENTARY: Normal, no lesion, rash, masses or bruising noted in extremities. MUSCULOSKELETAL: BUE and BLE normal without defect, crepitus, subluxation, effusion, arthritic changes or TTP. R 5 /5 L 5/5 ROM normal Tone normal NEURO: CN VII : Slight left facial droop Sensation intact in all extremities. No tremor noted in 4 extremities. Follows 2 step commands Aphasia not appreciated Dysarthria not appreciated Dysphagia not appreciated Neglect not appreciated, inattention seems present but is improving Safety awareness improving, cognitive dysfunction also improving and patient is able to attend to therapy task much better than he was previously. POSTURE and GAIT: Sitting posture good. Balance and gait observed with therapy, gait has improved and patient is not having any further loss of balance. Balance intact even with Romberg testing PSYCH: Alert, oriented x3, affect euthymic. Insight improved. Very slight perseveration remains. Attention to task seems to be improving. - Constitutional Vitals: Temp Pulse Resp BP Pulse Ox 97.3 F L 77 18 102/65 99 03/15/21 08:03 03/15/21 08:39 03/15/21 08:03 03/15/21 08:39 03/15/21 08:03 - Allied Health Allied health notes reviewed: nursing, ST, OT Plan Activity: advance as tolerated, other (No driving until cleared by neurology.) Diet: low cholesterol Special Instructions: physical therapy, occupational therapy, home health RN Care Plan Goals: Patient will need to follow-up with PCP after discharge for continued management of chronic medical conditions. Have instructed the and the patient to take his medical records from [facility] as well as from [facility] to their PCP on his follow-up. Also mention to the that she she needs to inform the PCPs office when she calls to make an appointment that he has suffered an intracerebral hemorrhage and has been discharged from the hospital and needs a follow-up. Patient will be discharged with 30 days of medications. Should not take any blood thinners/antiplatelets until cleared by neurology. Patient will also need to follow-up with neurology of their choice in the next couple of months. Patient is on Keppra for seizure prophylaxis based on EEGs from [facility]. He has not had any seizure activity while in our care and will likely be able to have Keppra discontinued in the near future once cleared by neurolog y. Have instructed the patient and that he is not to drive until neurology clears him from having any possible mall effects from seizure or his intracerebral hemorrhage. Patient and were instructed to call 911 in order to go to the ER if he experienced any cognitive changes, facial droop, increased weakness on any limb, slurred speech. BMP from 03/12/2021: sodium 139, potassium 4.2, chloride 106.1, carbon dioxide 24, BUN 15, creatinine 0.7, glucose 93, calcium 9.1. CBC from 03/14/2021: WBCs 4.8. RBCs 3.83. hemoglobin 11.9, hematocrit 33.0, platelets 122. Follow up with: JOSE MONTANO MD [Staff Physician] - 7 Days (PCP Follow Up s/p [facility] with Rehab Stay) Prescriptions: traZODone [Desyrel] 50 mg PO QHS #30 tablet AtorvaSTATin [Lipitor] 40 mg PO QHS #30 tablet amLODIPine 10 mg PO QDAY #30 tablet Doxazosin [Cardura] 4 mg PO QDAY #30 tablet levETIRAcetam [Keppra TAB] 750 mg PO BID 30 Days #90 tablet lisinopriL [Zestril TAB] 10 mg PO BID #60 tablet
[2021-03-15 11:50] VITALS: BP 104/62
== END 2021-03-15 12:22 | disposition home or self-care (01) | DRG 66 ==
LOC: 3A 13:15 → UNDOADMIN 13:15 → 3B 19:22
PROVIDERS: ADMIT Physical Medicine & Rehabilitation; ATTEND Physical Medicine & Rehabilitation
DX: I62.9 Nontraumatic intracranial hemorrhage, unspecified (principal); I10 Essential (primary) hypertension; R26.2 Difficulty in walking, not elsewhere classified; M62.81 Muscle weakness (generalized); D64.9 Anemia, unspecified; R56.9 Unspecified convulsions; H53.47 Heteronymous bilateral field defects; G47.00 Insomnia, unspecified; Z79.899 Other long term (current) drug therapy; Z79.891 Long term (current) use of opiate analgesic; Z79.01 Long term (current) use of anticoagulants; Z82.49 Family history of ischemic heart disease and other diseases of the circulatory system; Z80.9 Family history of malignant neoplasm, unspecified
CPT/HCPCS: 36415; 80048; 80053; 83735; 85025; 85027; 94640; 97129; 97130; G0378; G0515; A9270-GY; J1650